=== PATIENT | female | born 1980 | race Caucasian/White ===

== ENCOUNTER 2019-10-03 08:27 | Outpatient (CLI) | payer OTHER, SELFPAY ==
--- NOTE | ~2019-10-03 | XR_ITS ---
EXAMINATION: XR hand LT min 3V, XR hand RT min 3V DATE: 10/03/2019 08:50 INDICATION: Bilateral hand pain. Neuropathy. TECHNIQUE: 1. Posteroanterior, oblique and lateral views of the left hand were obtained. 2. Posteroanterior, oblique and lateral views of the right hand were obtained. COMPARISON: None. FINDINGS: Bone alignment is normal at both hands and wrists. No fracture. Joint spaces are normal throughout. I ndolent appearing lucent lesion with well-defined thin sclerotic margins at the distal pole of the le ft scaphoid. No other cortical erosions. No periosteal reaction. Soft tissues are unremarkable. IMPRESSION: 1. Likely incidental benign indolent appearing lytic lesion at the distal pole of the left scaphoid. Otherwise normal bilateral hand radiographs. Reviewed, dictated and finalized at location A. IMPRESSION: 1. Likely incidental benign indolent appearing lytic lesion at the distal pole of the left scaphoid. Otherwise normal bilateral hand radiographs.
[2019-10-03 10:11] LABS: Hematocrit 36.1 % (37.0-47.0); Immature Reticulocyte Fraction 7.7 % (3.0-15.9); Mean Corpuscular HGB Conc 33.2 g/dl (32-36); Mean Corpuscular Hemoglobin 31.7 pg (26-34); Mean Corpuscular Volume 95.3 fl (80-100); Mean Platelet Volume 10.1 fl (7.4-10.4); Platelet Count Result 297 k/mm3 (150-375); Red Blood Count 3.79 M/mm3 (4.2-5.4); Red Cell Distribution Width 12.6 % (11.5-14.5); Reticulocyte Hemoglobin Conten 36.9 pg (28.2-35.7); Reticulocyte Percent 1.39 % (0.7-4.3); Reticulocytes Absolute 0.05 B/L (32.2-175.7); White Blood Count 17.1 K/mm3 (4.5-10.0)
[2019-10-03 10:23] LABS: Alanine Aminotransferase 13 U/L (4-35); Albumin Level 3.9 g/dL (3.5-5.1); Alkaline Phosphatase 72 U/L (38-126); Aspartate Amino Transferase 21 U/L (14-36); Bilirubin,Total 0.1 mg/dL (0.2-1.3); Blood Urea Nitrogen 7 mg/dL (7-17); Calcium 8.5 mg/dL (8.4-10.2); Carbon Dioxide 27 mmol/L (22-30); Chloride 106 mmol/L (98-107); Estimated Glomerular Filt Rate > 60; Glucose 77 mg/dL (65-105); Lactate Dehydrogenase 401 U/L (313-618); Potassium 3.3 mmol/L (3.4-5.0); Sodium 138 mmol/L (137-145)
[2019-10-03 10:52] LABS: Transferrin 246 mg/dL (206-381)
[2019-10-03 10:56] LABS: Thyroid Stimulating Hormone 0.891 uIU/mL (0.465-4.680); Total Triiodothyronine (T3) 1.08 NG/ML (0.97-1.69)
--- NOTE | 2019-10-03 11:00 | NEURO_ITS ---
Patient Number: [id number] Impression: # Complains of numbness of hands. # Bilateral Carpal Tunnel Syndrome, right more than left. # No ulnar neuropathy. # Needle/EMG exam not requested. Nerve Conduction Studies Anti Sensory Summary Table Stim Site NR Peak (ms) P-T Amp (?V) Site1 Site2 Delta-P (ms) Dist (cm) Juan Pablo (m/s) Left Median Anti Sensory (2-3nd Digit) Wrist 4.0 25.6 Wrist 2-3nd Digit 4.0 14.0 35 Wrist 4.5 18.3 Wrist 2-3nd Digit 4.0 14.0 35 Right Median Anti Sensory (2-3nd Digit) Wrist 5.4 19.1 Wrist 2-3nd Digit 5.4 14.0 26 Wrist 5.5 17.2 Wrist 2-3nd Digit 5.4 14.0 26 Left Radial Anti Sensory (Base 1st Digit) Wrist 1.8 32.9 Wrist Base 1st Digit 1.8 0.0 Right Radial Anti Sensory (Base 1st Digit) Wrist 2.0 25.6 Wrist Base 1st Digit 2.0 0.0 Left Ulnar Anti Sensory (5th Digit) Wrist 2.2 30.2 Wrist 5th Digit 2.2 14.0 64 Right Ulnar Anti Sensory (5th Digit) Wrist 2.1 65.8 Wrist 5th Digit 2.1 14.0 67 Motor Summary Table Stim Site NR Onset (ms) O-P Amp (mV) Site1 Site2 Delta-0 (ms) Dist (cm) Juan Pablo (m/s) Left Median Motor (Abd Poll Brev) Wrist 4.5 1.2 Elbow Wrist 4.3 26.0 60 Elbow 8.8 1.7 Right Median Motor (Abd Poll Brev) Wrist 6.0 1.1 Elbow Wrist 3.8 25.0 66 Elbow 9.8 0.8 Left Ulnar Motor (Abd Dig Minimi) Wrist 3.2 9.4 A Elbow Wrist 4.0 26.0 65 A Elbow 7.2 7.8 Right Ulnar Motor (Abd Dig Minimi) Wrist 2.2 11.5 A Elbow Wrist 4.1 26.0 63 A Elbow 6.3 10.8 F Wave Studies NR F-Lat (ms) L-R F-Lat (ms) Left Median (Mrkrs) (Abd Poll Brev) 28.54 1.23 Right Median (Mrkrs) (Abd Poll Brev) 27.31 1.23 Left Ulnar (Mrkrs) (Abd Dig Min) 24.44 0.00 Right Ulnar (Mrkrs) (Abd Dig Min) 24.44 0.00 MTDD
[2019-10-03 11:06] LABS: Iron 46 ug/dL (37-170)
[2019-10-03 11:29] LABS: Free T4 Free Thyroxine 0.83 ng/mL (0.78-2.19); Vitamin D 25 Hydroxy 17.5 ng/mL
[2019-10-03 11:31] LABS: Folic Acid 8.2 ng/mL (2.76->20)
[2019-10-03 11:36] LABS: Percent Iron Saturation 15 % (20-50)
[2019-10-03 13:33] LABS: Basophils Absolute Auto 0.1 K/mm3 (0.0-0.1); Basophils Percent Auto 0.3 % (0.2-1.2); Eosinophils Absolute Auto 0.2 K/mm3 (0-0.3); Eosinophils Percent Auto 1.2 % (0-4.4); Immature Granulocyte Absolute 0.08 K/mm3 (0.00-0.031); Immature Granulocyte Percent A 0.5 % (0-0.5); Lymphocytes Absolute Auto 3.41 K/mm3 (0.9-3.2); Lymphocytes Percent Auto 19.3 % (18.3-44.2); Monocytes Percent Auto 5.8 % (2.6-8.5); Neutrophils Absolute Auto 12.8 K/mm3 (1.3-6.7); Neutrophils Percent Auto 72.9 % (45.5-73.1)
== END 2019-10-03 08:28 | disposition home or self-care (01) ==
LOC: ANHNEURO 08:33
PROVIDERS: PCP Family Medicine; Visit Provider Nurse Practitioner Family
DX: M79.642 Pain in left hand (principal); M79.641 Pain in right hand; M89.9 Disorder of bone, unspecified; G56.03 Carpal tunnel syndrome, bilateral upper limbs
CPT/HCPCS: 36415; 73130; 80053; 82306; 82607; 82728; 82746; 83540; 83550; 83615; 84439; 84443; 84466; 84480; 85025; 85027; 85046; 95911

== ENCOUNTER 2019-12-23 15:58 | Emergency (ER) | payer OTHER, SELFPAY ==
[2019-12-23] VITALS (8 sets, daily range): BP systolic 98–127; BP diastolic 52–94; PULSE 59–87; RESP 12–22; TEMP 37; O2SAT 96–98
--- NOTE | ~2019-12-23 | CT_ITS ---
EXAMINATION: CT BRAIN W/O DATE: 12/23/2019 17:45 INDICATION: Seizure TECHNIQUE: Computed tomography (CT) of the head was performed without intravenous contrast. The dose- length product was 605.33 mGy-cm. Automated exposure control and iterative reconstruction technique w ere employed. COMPARISON: No prior studies for comparison. FINDINGS: Normal brain parenchymal volume for age. Normal linton-white differentiation. No acute intrac ranial hemorrhage, infarction, mass or mass effect. No ventriculomegaly or midline shift. Midline sagittal images demonstrate a normal corpus callosum, c raniovertebral junction and sella turcica. Basilar cisterns are patent. Paranasal sinuses and mastoids are pneumatized. No depressed skull fractures. IMPRESSION: 1. No acute intracranial abnormality. Reviewed, dictated and finalized at location A.
--- NOTE | 2019-12-23 16:36 | ED.GENADULT ---
HPI - General Adult General Chief complaint: Seizure Stated complaint: seizure Time Seen by Provider: 12/23/19 16:15 Source: patient Mode of arrival: ambulatory Limitations: no limitations History of Present Illness HPI narrative: Patient is a 39-year-old male who presents to emergency department for evaluation of seizure-like activity that occurred just prior to arrival patient presents per EMS patient reportedly had her vehicle breakdown became overheated had what was described as brief seizure-like activity attempted to go to work and upon going to work recurrence of symptoms and presents per EMS patient on arrival in the room in no distress able to answer questions appropriately patient has occasional tremors. Patient notes that she aches all over. Patient has not taken anything for her symptoms. Patient is currently on no seizure medications and is followed by Dr. Zapata. Related Data Home Medications Medication Instructions Recorded Confirmed buspirone mg BID 12/23/19 hydroxyzine HCl 50 PO 12/23/19 ropinirole 0.5 mg HS 12/23/19 12/23/19 sertraline 200 mg PO 12/23/19 trazodone 50 mg DAILY 12/23/19 12/23/19 trazodone 150 mg HS 12/23/19 12/23/19 Allergies Allergy/AdvReac Type Severity Reaction Status Date / Time No Known Allergies Allergy Verified 12/23/19 16:32 Review of Systems Review of Systems: All systems reviewed & are unremarkable except as noted in HPI and below PMFSH Past Medical History Medical History (Updated 12/23/19 @ 21:12 by Jorden Alonso PA-C) Anxiety Depression Seizure Social History Social History (Updated 12/23/19 @ 16:39 by Jorden Alonso PA-C) Smoking status: Current every day smoker Alcohol intake: unknown Substance use: former Substance use type: amphetamines Gender identity (if verbalized by the patient): Female Exam Narrative: Exam Narrative: GENERAL: Well-appearing, well-nourished, and in no acute distress. HEAD: Normocephalic, atraumatic. EYES: PERRLA and EOMI. ENT: Nares clear, no rhinorrhea or epistaxis. Mucous membranes moist. Oropharynx without tonsillar hypertrophy exudate or other lesions. NECK: Supple. No adenopathy or masses. CHEST: Clear to auscultation. No respiratory distress. No wheezes rales or rhonchi HEART: Regular rate and rhythm. No murmur heard. Normal peripheral pulses. ABDOMEN: Soft, nontender, nondistended EXTREMITIES: Normal range of motion. No edema. SKIN: Warm, dry, no rash. NEURO: No focal deficits. Alert and oriented x3. Cranial nerves II through XII grossly intact. Normal speech PSYCH: Normal mood and affect. Course Course Emergency Course: Patient in the room at this time in no distress aware of case findings treatment plan and diagnosis given medications in the emergency department normal mentation resting comfortably no distress patient felt appropriate for outpatient reevaluation with follow-up with neurology Consultations Consultation #1: Spoke with neurology and primary care who will follow the patient in neck with driving restrictions with no further interventions or medications at this time Date: 12/23/19 Time: 21:10 Vital Signs Vital signs: Vital Signs Pulse Rate 68 12/23/19 16:17 Respiratory Rate 17 12/23/19 16:17 Blood Pressure 114/67 12/23/19 16:17 Pulse Oximetry 97 12/23/19 16:17 Temperature 98.6 F 12/23/19 16:18 Pulse Rate 61 12/23/19 17:46 Respiratory Rate 18 12/23/19 17:46 Blood Pressure 100/58 L 12/23/19 17:46 Pulse Oximetry 98 12/23/19 17:46 Medical Decision Making [facility] Narrative Medical decision making narrative: Patient's seizures are self-limited and patient has been without post ictal state there are no focal neurological deficits on exam. Subarachnoid hemorrhage is felt to be unlikey at this time. There is no history of fever, and neck is supple without meningismus, making meningitis unlikely. No traumatic history or signs of trauma on exam. No risk fa
[2019-12-23 16:57] LABS: Basophils Percent Auto 0.3 % (0.2-1.2); Eosinophils Absolute Auto 0.1 K/mm3 (0-0.3); Eosinophils Percent Auto 0.6 % (0-4.4); Hematocrit 36.9 % (37.0-47.0); Hemoglobin 12.5 g/dL (12.0-15.0); Immature Granulocyte Absolute 0.06 K/mm3 (0.00-0.031); Immature Granulocyte Percent A 0.4 % (0-0.5); Lymphocytes Absolute Auto 2.74 K/mm3 (0.9-3.2); Lymphocytes Percent Auto 19.2 % (18.3-44.2); Mean Corpuscular HGB Conc 33.9 g/dl (32-36); Mean Corpuscular Hemoglobin 31.8 pg (26-34); Mean Corpuscular Volume 93.9 fl (80-100); Mean Platelet Volume 10.1 fl (7.4-10.4); Monocytes Absolute Auto 0.8 K/mm3 (0.1-0.6); Monocytes Percent Auto 5.6 % (2.6-8.5); Neutrophils Absolute Auto 10.5 K/mm3 (1.3-6.7); Neutrophils Percent Auto 73.9 % (45.5-73.1); Platelet Count Result 315 k/mm3 (150-375); Red Blood Count 3.93 M/mm3 (4.2-5.4); Red Cell Distribution Width 12.6 % (11.5-14.5); White Blood Count 14.3 K/mm3 (4.5-10.0)
[2019-12-23 17:10] LABS: Alanine Aminotransferase 14 U/L (4-35); Alkaline Phosphatase 70 U/L (38-126); Aspartate Amino Transferase 22 U/L (14-36); Bilirubin,Total < 0.1 mg/dL (0.2-1.3); Blood Urea Nitrogen 9 mg/dL (7-17); Calcium 8.7 mg/dL (8.4-10.2); Carbon Dioxide 22 mmol/L (22-30); Chloride 109 mmol/L (98-107); Estimated CRCL calculation 68 ml/min; Estimated Glomerular Filt Rate > 60; Glucose 95 mg/dL (65-105); Lipase 107 U/L (23-300); Potassium 3.6 mmol/L (3.4-5.0); Sodium 139 mmol/L (137-145)
--- NOTE | 2019-12-23 17:22 | PC.NURSE ---
Call received from [facility] in [place], states pt is having a seizure, report is nonresponsive to verbal stimuli, eyes blinking, and shaking all over . On arrival of this RN note pt is tremorous, A/O x3, is not postictal, is not incontinent. Med given IVP and legs and arms immediately straigten and tremors are gone.
[2019-12-23] MEDS: SODIUM CHLORIDE 0.9% IV 1,000 ML 999 ML IV CONT ×2 (17:48→19:04)
[2019-12-23] MEDS: levETIRAcetam 1000MG/NACL100ML 1,000 MG/100 ML BAG 400 MG IVPB (17:49)
--- NOTE | 2019-12-23 17:50 | PC.NURSE ---
Pt returns from CT, no further uncontrollable muscle movement. Pt lying quietly on stretcher. States is unable to void and is refusing straight cath at this time.
--- NOTE | 2019-12-23 18:55 | PC.NURSE ---
Pt up to bathroom with assist of to void. Per patient's patient did not remember both this RN and himself telling her to save the void. Approx 1.5 cc clear yellow urine caught in cup. Preg test performed. Additional NS initiated. DIDIER Coyle, made aware of continued delay. pt continues to adamantly refuse straight cath. States I'll be able to go again in a little bit, I know I will .
[2019-12-23 19:43] LABS: Add Urine Microscopic? NO; Appearance Urine Clear (Clear); Bilirubin Urine Negative (Negative); Blood Urine Negative (Negative); Color Urine Yellow (Yellow); Glucose Urine UA Negative (Negative); Ketones Urine Negative (Negative); Leukocyte Esterase Ur Negative LEU/UL (Negative); Nitrate Urine Negative (Negative); Protein Urine Negative (Negative); Specific Grav Ur 1.024 (1.001-1.035); Urobilinogen Urine Negative mg/dL (<2.0)
[2019-12-23 19:56] LABS: Amphetamine Screen Urine Negative (Negative); Barbiturate Screen Urine Negative (Negative); Benzodiazepines Screen Urine Negative (Negative); Cannabinoid Screen Urine Positive (Negative); Cocaine Screen Urine Negative (Negative); Methadone Screen Urine Negative (Negative); Opiate Screen Urine Negative (Negative); Phencyclidine Screen Urine Negative (Negative)
== END 2019-12-23 21:20 | disposition home or self-care (01) ==
PROVIDERS: Emergency Medicine Emergency Medical Services; Emergency Provider Emergency Medicine; PCP Family Medicine
DX: R56.9 Unspecified convulsions (principal); F41.9 Anxiety disorder, unspecified; F32.9 Major depressive disorder, single episode, unspecified
CPT/HCPCS: 36415; 70450; 80053; 80307; 81003; 81025; 83690; 85025; 96361; 96365; 96375; 99284; J1953; J2060; J7030

== ENCOUNTER 2019-12-24 22:06 | Emergency (ER) | payer OTHER, SELFPAY ==
[2019-12-24 22:07] VITALS: BP 153/86; PULSE 86; RESP 18; TEMP 36.9; O2SAT 99
--- NOTE | 2019-12-24 22:32 | PC.NURSE ---
patients states in room we've been at this hospital 3 fucking time in the past month and they just keep doping her up with fluids and sending her home, they tell us every time that nothing is wrong. somebody better fucking find something wrong. edp present for this.
--- NOTE | 2019-12-24 22:35 | ED.HA ---
HPI - Headache General Chief Complaint: Headache Stated Complaint: migraine, N/V Time Seen by Provider: 12/24/19 22:25 History of Present Illness HPI Narrative: Patient presents to the ED with her . She is crying in pain from her headache. is yelling at staff that no one is taking care of her. She has been here numerous times for headache and body pain, and shaking. They were told that they could find nothing wrong on her tests, and she was sent to the neurology. Because of COVID her neurology appointment was postponed for times. She was seen here yesterday and discharged. She is continued to vomit and continued to have headaches since then. She says her whole body hurts 12 out of 10. And the headache is 8 out of 10. She has not had her psychiatric medications for 3 days, because they do not have a car. Psychiatric medications have been prescribed by the nurse practitioner of her PCP. She says her vision is different because she cannot make her eyes do what she wants them to do. She says she has severe leg pain because it is a tingling electric shock through her whole body. Surgical history of cervical fusion. She smokes cigarettes. Does not drink alcohol, and does smoke marijuana. MD elicited complaint: headache and migraine Location: frontal Related Data Home Medications Medication Instructions Recorded Confirmed buspirone mg BID 12/23/19 hydroxyzine HCl 50 PO 12/23/19 ropinirole 0.5 mg HS 12/23/19 12/23/19 sertraline 200 mg PO 12/23/19 trazodone 50 mg DAILY 12/23/19 12/23/19 trazodone 150 mg HS 12/23/19 12/23/19 Allergies Allergy/AdvReac Type Severity Reaction Status Date / Time No Known Allergies Allergy Verified 12/23/19 16:32 Review of Systems Review of Systems: Narrative: CONSTITUTIONAL: Denies fever, but has had chills, and sweats. EYES: Denies visual changes, redness, or discharge. She says she cannot focus her eyes. ENT: Denies rhinorrhea, congestion, sore throat, or otalgia. CARDIOVASCULAR: Denies chest pain, palpitations, or edema. RESPIRATORY: Denies cough or dyspnea. GASTROINTESTINAL: Denies abdominal pain, nausea, vomiting, or diarrhea. GENITOURINARY: Denies dysuria or hematuria. SKIN: Denies rash or itching. MUSCULOSKELETAL: She has back pain, joint pain, and myalgia. NEUROLOGIC: She has headache, and numbness, PSYCHIATRIC: Severe anxiety. [facility] Past Medical History Medical History (Updated 12/24/19 @ 22:40 by Hyacinth Grove MD) Anxiety Depression Seizure Surgical History Surgical History (Updated 12/24/19 @ 22:40 by Hyacinth Grove MD) History of cervical spinal arthrodesis Social History Social History (Updated 12/24/19 @ 22:40 by Hyacinth Grove MD) Smoking status: Current every day smoker Alcohol intake: unknown Substance use: current Substance use type: marijuana and amphetamines Gender identity (if verbalized by the patient): Female Exam Narrative: Exam Narrative: GENERAL: Thin, crying HEAD: Normocephalic, atraumatic. EYES: PERRLA and EOMI. ENT: Nares clear, no rhinorrhea or epistaxis. Mucous membranes dry. NECK: Supple. CHEST: Clear to auscultation. No respiratory distress. HEART: Regular rate and rhythm. No murmur heard. Normal peripheral pulses. ABDOMEN: Soft, nontender, nondistended, normal active bowel sounds. EXTREMITIES: Normal range of motion. No edema. SKIN: Warm, dry, no rash. NEURO: No focal deficits. Alert and oriented x3. PSYCH: Histrionic. Course Reevaluation(s) Reevaluation #1: [id number] with the patient and her , she is feeling much better and on her second liter of IV fluids. The headache is gone and the nausea is gone. I told her I wanted the IV fluids to run until she was able to make urine. The reason she is not on seizure medication is that happened to infrequently. Date: 12/25/19 Time: 00:21 Vital Signs Vital signs: Vital Signs Temperature 98.4 F 12/24/19 22:07 Pulse Rate 86 12/24/19 22:
[2019-12-24] MEDS: SODIUM CHLORIDE 0.9% IV 1,000 ML 999 ML IV CONT ×2 (22:40→23:59)
[2019-12-24] MEDS: diphenhydrAMINE HCl INJ 50 MG/ML VIAL IV PUSH (22:40)
[2019-12-24] MEDS: METOCLOPRAMIDE HCL INJ 10 MG/2 ML VIAL IV PUSH (22:40)
[2019-12-24 22:44] LABS: Basophils Percent Auto 0.2 % (0.2-1.2); Eosinophils Absolute Auto 0.1 K/mm3 (0-0.3); Eosinophils Percent Auto 0.7 % (0-4.4); Hematocrit 39.2 % (37.0-47.0); Hemoglobin 13.3 g/dL (12.0-15.0); Immature Granulocyte Absolute 0.05 K/mm3 (0.00-0.031); Immature Granulocyte Percent A 0.3 % (0-0.5); Lymphocytes Absolute Auto 4.97 K/mm3 (0.9-3.2); Lymphocytes Percent Auto 31.7 % (18.3-44.2); Mean Corpuscular HGB Conc 33.9 g/dl (32-36); Mean Corpuscular Hemoglobin 31.7 pg (26-34); Mean Corpuscular Volume 93.6 fl (80-100); Mean Platelet Volume 10.3 fl (7.4-10.4); Monocytes Absolute Auto 0.9 K/mm3 (0.1-0.6); Monocytes Percent Auto 5.8 % (2.6-8.5); Neutrophils Absolute Auto 9.6 K/mm3 (1.3-6.7); Neutrophils Percent Auto 61.3 % (45.5-73.1); Platelet Count Result 330 k/mm3 (150-375); Red Blood Count 4.19 M/mm3 (4.2-5.4); Red Cell Distribution Width 12.5 % (11.5-14.5); White Blood Count 15.7 K/mm3 (4.5-10.0)
[2019-12-24 22:55] LABS: Ethanol < 10 mg/dL (<10)
[2019-12-24 22:58] LABS: Alanine Aminotransferase 18 U/L (4-35); Albumin Level 4.2 g/dL (3.5-5.1); Alkaline Phosphatase 55 U/L (38-126); Aspartate Amino Transferase 27 U/L (14-36); Bilirubin,Total 0.5 mg/dL (0.2-1.3); Blood Urea Nitrogen 8 mg/dL (7-17); CRP < 0.5 mg/dL (<1.0); Calcium 9.3 mg/dL (8.4-10.2); Carbon Dioxide 23 mmol/L (22-30); Chloride 107 mmol/L (98-107); Estimated Glomerular Filt Rate > 60; Glucose 98 mg/dL (65-105); Potassium 3.9 mmol/L (3.4-5.0); Sodium 139 mmol/L (137-145)
[2019-12-24 23:03] VITALS: BP 113/63; PULSE 53; RESP 18; O2SAT 100
[2019-12-24 23:08] LABS: Erythrocyte Sedimentation Rate 13 mm/hr (0-20)
[2019-12-24 23:34] VITALS: BP 107/59; PULSE 59; RESP 19; O2SAT 100
[2019-12-25 00:49] VITALS: BP 108/67; PULSE 56; RESP 18; O2SAT 100
[2019-12-25 01:00] LABS: Amphetamine Screen Urine Negative (Negative); Barbiturate Screen Urine Negative (Negative); Benzodiazepines Screen Urine Negative (Negative); Cannabinoid Screen Urine Positive (Negative); Cocaine Screen Urine Negative (Negative); Methadone Screen Urine Negative (Negative); Opiate Screen Urine Negative (Negative); Phencyclidine Screen Urine Negative (Negative)
[2019-12-25 01:20] VITALS: BP 112/64; PULSE 61; RESP 19; TEMP 36.8; O2SAT 100
== END 2019-12-25 01:21 | disposition home or self-care (01) ==
PROVIDERS: Emergency Provider Emergency Medicine; PCP Family Medicine
DX: R51 Headache (principal); F41.9 Anxiety disorder, unspecified; F32.9 Major depressive disorder, single episode, unspecified; Z98.1 Arthrodesis status; F17.200 Nicotine dependence, unspecified, uncomplicated
CPT/HCPCS: 36415; 80053; 80307; 85025; 85652; 86140; 96361; 96374; 96375; 99284; J1200; J2765; J7030

== ENCOUNTER 2020-05-01 17:12 | Emergency (ER) | payer OTHER, SELFPAY ==
[2020-05-01 17:16] VITALS: BP 128/62; PULSE 64; RESP 16; TEMP 36.3; O2SAT 95
[2020-05-01] MEDS: ONDANSETRON INJ 4 MG/2 ML VIAL IV PUSH (18:47)
[2020-05-01] MEDS: SODIUM CHLORIDE 0.9% IV 1,000 ML 999 ML IV CONT (18:47)
[2020-05-01] MEDS: FAMOTIDINE 20 MG/2 ML VIAL IV PUSH (18:47)
[2020-05-01 18:52] LABS: Basophils Absolute Auto 0.1 K/mm3 (0.0-0.1); Basophils Percent Auto 0.3 % (0.2-1.2); Eosinophils Absolute Auto 0.3 K/mm3 (0-0.3); Eosinophils Percent Auto 1.7 % (0-4.4); Hematocrit 43.5 % (37.0-47.0); Hemoglobin 15.4 g/dL (12.0-15.0); Immature Granulocyte Absolute 0.06 K/mm3 (0.00-0.031); Immature Granulocyte Percent A 0.4 % (0-0.5); Lymphocytes Absolute Auto 4.09 K/mm3 (0.9-3.2); Lymphocytes Percent Auto 27.8 % (18.3-44.2); Mean Corpuscular HGB Conc 35.4 g/dl (32-36); Mean Corpuscular Hemoglobin 32.3 pg (26-34); Mean Corpuscular Volume 91.2 fl (80-100); Mean Platelet Volume 10.1 fl (7.4-10.4); Monocytes Percent Auto 6.9 % (2.6-8.5); Neutrophils Absolute Auto 9.3 K/mm3 (1.3-6.7); Neutrophils Percent Auto 62.9 % (45.5-73.1); Platelet Count Result 446 k/mm3 (150-375); Red Blood Count 4.77 M/mm3 (4.2-5.4); Red Cell Distribution Width 12.5 % (11.5-14.5); White Blood Count 14.7 K/mm3 (4.5-10.0)
[2020-05-01] MEDS: LORazepam INJ (*CRX) 2 MG/ML VIAL 1 MG IV PUSH (18:53)
[2020-05-01 19:03] LABS: Alanine Aminotransferase 26 U/L (4-35); Albumin Level 4.9 g/dL (3.5-5.1); Alkaline Phosphatase 77 U/L (38-126); Anion Gap 16 mmol/L (8-16); Aspartate Amino Transferase 32 U/L (14-36); Bilirubin,Total 0.7 mg/dL (0.2-1.3); Blood Urea Nitrogen 21 mg/dL (7-17); Calcium 9.9 mg/dL (8.4-10.2); Carbon Dioxide 22 mmol/L (22-30); Chloride 104 mmol/L (98-107); Estimated CRCL calculation 64 ml/min; Estimated Glomerular Filt Rate > 60; Glucose 88 mg/dL (65-105); Lipase 103 U/L (23-300); Potassium 3.2 mmol/L (3.4-5.0); Sodium 142 mmol/L (137-145)
[2020-05-01 20:20] LABS: Add Urine Microscopic? YES; Appearance Urine Cloudy (Clear); Bacteria Urine Trace /hpf; Bilirubin Urine Negative (Negative); Blood Urine 2+ (Negative); Color Urine Yellow (Yellow); Glucose Urine UA Negative (Negative); Ketones Urine 1+ mg/dL (Negative); Leukocyte Esterase Ur Negative LEU/UL (Negative); Mucus Urine Heavy /lpf; Nitrate Urine Negative (Negative); Protein Urine 2+ mg/dL (Negative); Squamous Epithelial Cell Urine Many /hpf (Few)
[2020-05-01 20:24] LABS: Barbiturate Screen Urine Negative (Negative); Benzodiazepines Screen Urine Positive (Negative)
[2020-05-01 20:25] LABS: Cannabinoid Screen Urine Positive (Negative); Cocaine Screen Urine Negative (Negative); Methadone Screen Urine Negative (Negative); Opiate Screen Urine Negative (Negative); Phencyclidine Screen Urine Negative (Negative)
--- NOTE | 2020-05-01 20:33 | ED.GENADULT ---
HPI - General Adult General Chief complaint: Unspecified Stated complaint: N/V/D SEIZURES DEHYDRATED Time Seen by Provider: 05/01/20 17:55 Source: patient and old records reviewed Mode of arrival: ambulatory Limitations: no limitations History of Present Illness HPI narrative: Patient is a 39-year-old female who presents to emergency department with nausea and vomiting over the weekend which has improved. Patient over the weekend notes that she used amphetamines and benzos and developed nausea and vomiting which lasted 1 day and resolved patient presents noting concerned that she felt like she was still nauseous and under the influence patient on arrival denies diarrhea URI symptoms or other complaints notes she does have a longstanding history of drug abuse Related Data Home Medications Medication Instructions Recorded Confirmed buspirone mg BID 12/23/19 hydroxyzine HCl 50 PO 12/23/19 ropinirole 0.5 mg HS 12/23/19 12/23/19 sertraline 200 mg PO 12/23/19 trazodone 50 mg DAILY 12/23/19 12/23/19 trazodone 150 mg HS 12/23/19 12/23/19 Allergies Allergy/AdvReac Type Severity Reaction Status Date / Time No Known Allergies Allergy Verified 05/01/20 18:08 Review of Systems Review of Systems: All systems reviewed & are unremarkable except as noted in HPI and below PMFSH Past Medical History Medical History Anxiety Depression Seizure Surgical History Surgical History History of cervical spinal arthrodesis Social History Social History Smoking status: Current every day smoker Alcohol intake: unknown Substance use: current Substance use type: marijuana and amphetamines Gender identity (if verbalized by the patient): Female Exam Narrative: Exam Narrative: GENERAL: Well-appearing, well-nourished, and in no acute distress. HEAD: Normocephalic, atraumatic. EYES: PERRLA and EOMI. ENT: Nares clear, no rhinorrhea or epistaxis. Mucous membranes moist. CHEST: Clear to auscultation. No respiratory distress. No wheezes rales or rhonchi HEART: Regular rate and rhythm. No murmur heard. Normal peripheral pulses. ABDOMEN: Soft, nontender, nondistended EXTREMITIES: Normal range of motion. No edema. SKIN: Warm, dry, no rash. NEURO: No focal deficits. Alert and oriented x3. PSYCH: Normal mood and affect. Course Course Emergency Course: Patient in the room aware of case findings treatment plan diagnosis hydrated given medication has had improvement with symptoms feels comfortable to be discharged home and will follow with primary care Vital Signs Vital signs: Vital Signs Temperature 97.3 F L 05/01/20 17:16 Pulse Rate 64 05/01/20 17:16 Respiratory Rate 16 05/01/20 17:16 Blood Pressure 128/62 05/01/20 17:16 Pulse Oximetry 95 05/01/20 17:16 Temperature 97.3 F L 05/01/20 17:16 Pulse Rate 64 05/01/20 17:16 Respiratory Rate 16 05/01/20 17:16 Blood Pressure 128/62 05/01/20 17:16 Pulse Oximetry 95 05/01/20 17:16 Medical Decision Making MDM Narrative Medical decision making narrative: Patient with nausea and vomiting resolved hydrated felt appropriate for outpatient reevaluation agreeing to follow with primary care Vital Signs Vital Signs: Vital Signs Temperature 97.3 F L 05/01/20 17:16 Pulse Rate 64 05/01/20 17:16 Respiratory Rate 16 05/01/20 17:16 Blood Pressure 128/62 05/01/20 17:16 Pulse Oximetry 95 05/01/20 17:16 Temperature 97.3 F L 05/01/20 17:16 Pulse Rate 64 05/01/20 17:16 Respiratory Rate 16 05/01/20 17:16 Blood Pressure 128/62 05/01/20 17:16 Pulse Oximetry 95 05/01/20 17:16 Lab Data Result diagrams: 05/01/20 18:46 05/01/20 18:46 Labs: Lab Results 05/01/20 05/01/20 05/01/20 Range/Units 18:46 18:46 20:01 WBC 14.7 H (4.
[2020-05-01 20:41] LABS: Amphetamine Screen Urine Positive (Negative)
[2020-05-01 21:09] VITALS: BP 130/74; PULSE 88; RESP 14; O2SAT 98
== END 2020-05-01 21:10 | disposition home or self-care (01) ==
PROVIDERS: Emergency Medicine Emergency Medical Services; Emergency Provider Emergency Medicine; PCP Family Medicine
DX: R10.9 Unspecified abdominal pain (principal); F41.9 Anxiety disorder, unspecified; F32.9 Major depressive disorder, single episode, unspecified; G40.909 Epilepsy, unspecified, not intractable, without status epilepticus; F17.210 Nicotine dependence, cigarettes, uncomplicated
CPT/HCPCS: 36415; 80053; 80307; 81001; 81025; 83690; 85025; 96361; 96374; 96375; 99284; J2060; J2405; J7030

== ENCOUNTER 2020-06-21 15:37 | Outpatient (CLI) | payer OTHER, SELFPAY ==
--- NOTE | ~2020-06-21 | MR_ITS ---
EXAMINATION: MR brain/brain stem wo/w con EXAM DATE: 06/21/2020 17:02 INDICATION: Conversion disorder, seizures or convulsions. TECHNIQUE: Magnetic resonance imaging (MRI) of the brain/brain stem obtained without contrast. Sagit mendez T1, axial diffusion, gradient echo (T2*), T1, T2, FLAIR sequences obtained. Seizure protocol was utilized including high-resolution coronal images through the hippocampi. Patient was then injected with 10 cc intravenous Multihance contrast. Axial and coronal postcontrast T1 weighted sequences obt ained. Correlation is made to head CT 12/23/2019. FINDINGS: The hippocampi are symmetric and are without signal abnormality identified. There are no g ray matter heterotopias identified or evidence of cortical dysplasia. There are approximately 8 punctate periventricular and subcortical T2/FLAIR hyperintensities, a non-s pecific finding with differential diagnosis including premature chronic small vessel ischemic disease (especially if the patient has cardiovascular risk factors), migraine headaches, demyelinating disea se such as multiple sclerosis or acute disseminated encephalomyelitis (ADEM), vasculopathy, lyme's di sease or reactive astrocytosis (gliosis) secondary to nonspecific etiology. None of these signal abno rmalities in the corpus callosum or posterior fossa. There are no areas of restricted diffusion to suggest acute infarction. There is no acute hemorrhage seen on the T2*, a hemosiderin sensitive sequence. No intraparenchymal brain mass. The ventricles a re normal in size. There are no extra-axial collections. Flow voids are seen in the cerebral arteri es on the T2-weighted sequences consistent with their expected patency. The orbits are unremarkable. Soft tissue is unremarkable. IMPRESSION: Small punctate white matter hyperintensities could be microangiopathy but some less likel y differential considerations above. Reviewed, dictated and finalized at location A. HANDLER IMPRESSION: Small punctate white matter hyperintensities could be microangiopat hy but some less likely differential considerations above.
[2020-06-21 16:24] LABS: Estimated Glomerular Filt Rate > 60
[2020-06-21 17:30] LABS: Anion Gap 6 mmol/L (8-16); Blood Urea Nitrogen 8 mg/dL (7-17); Calcium 8.7 mg/dL (8.4-10.2); Carbon Dioxide 27 mmol/L (22-30); Chloride 105 mmol/L (98-107); Estimated Glomerular Filt Rate > 60; Glucose 84 mg/dL (65-105); Potassium 3.3 mmol/L (3.4-5.0); Sodium 138 mmol/L (137-145)
== END 2020-06-21 15:38 | disposition home or self-care (01) ==
PROVIDERS: PCP Family Medicine; Visit Provider Nurse Practitioner Family
DX: E87.6 Hypokalemia (principal); F44.5 Conversion disorder with seizures or convulsions
CPT/HCPCS: 70553; 80048; A9577

== ENCOUNTER 2020-07-02 16:49 | Emergency (ER) | payer OTHER, SELFPAY ==
--- NOTE | ~2020-07-02 | CT_ITS ---
EXAMINATION: CT soft tissue neck wo con DATE: 07/02/2020 19:57 INDICATION: Neck pain TECHNIQUE: Computed tomography (CT) of the neck was performed without intravenous contrast. The dose- length product (DLP) was 360.79 mGy-cm. Automated exposure control and iterative reconstruction techn ique were employed. COMPARISON: None FINDINGS: The neck soft tissues are unremarkable. There are changes of anterior fusion procedure at C 5-6 with interbody device placement. There is no fracture, dislocation, or subluxation. The odontoid is intact. The prevertebral soft tissues are normal. There are multiple teeth with dental caries in v arious states of erosion. Mild to moderate emphysema is noted in the visualized lung apices. IMPRESSION: 1. Unremarkable neck soft tissues. 2. Changes of anterior fusion procedure in the cervical spine without acute osseous abnormality. Reviewed, dictated and finalized at location A. EM CONSULTANT IMPRESSION: 1. Unremarkable neck soft tissues. 2. Changes of anterior fusion procedure in the cervical spine without acute oss eous abnormality.
[2020-07-02 16:57] VITALS: BP 123/59; PULSE 72; RESP 20; TEMP 36.8; O2SAT 98
--- NOTE | 2020-07-02 17:31 | ED.BACK ---
HPI - Back Pain/Injury General Chief Complaint: Back Pain/Injury Stated Complaint: back, neck pain Time Seen by Provider: 07/02/20 17:03 Source: patient Mode of arrival: ambulatory Limitations: no limitations History of Present Illness HPI Narrative: Patient is a 39-year-old female who presents complaining of neck pain shoulder pain and lower back pain x 3 weeks increasing over the past week, she denies injury. She reports intermittent weakness in left arm, denies weakness at this time. She reports seeing PCP for same, PCP sent patient for further evaluation as patient is reporting loss of bladder control x3 over the past week. Patient reports a history of previous neck surgery in 2013. She denies new injury, she denies all other complaints. MD elicited complaint: back pain Related Data Home Medications Medication Instructions Recorded Confirmed buspirone mg BID 12/23/19 hydroxyzine HCl 50 PO 12/23/19 ropinirole 0.5 mg HS 12/23/19 12/23/19 sertraline 200 mg PO 12/23/19 trazodone 50 mg DAILY 12/23/19 12/23/19 trazodone 150 mg HS 12/23/19 12/23/19 albuterol sulfate 07/02/20 albuterol sulfate INHALATION 07/02/20 Allergies Allergy/AdvReac Type Severity Reaction Status Date / Time No Known Allergies Allergy Verified 07/02/20 17:53 Review of Systems Review of Systems: Narrative: CONSTITUTIONAL: Denies fever, chills, or sweats. EYES: Denies visual changes, redness, or discharge. ENT: Denies rhinorrhea, congestion, sore throat, or otalgia. CARDIOVASCULAR: Denies chest pain, palpitations, or edema. RESPIRATORY: Denies cough or dyspnea. GASTROINTESTINAL: Denies abdominal pain, nausea, vomiting, or diarrhea. GENITOURINARY: Intermittent urinary incontinence x 3 over the past week. SKIN: Denies rash or itching. MUSCULOSKELETAL:Reports neck, bilateral shoulder and back pain x 3 weeks. NEUROLOGIC: Denies headache, numbness, dizziness, or weakness. PSYCHIATRIC: Denies anxiety or depression. [facility] Past Medical History Medical History Anxiety Depression Seizure Surgical History Surgical History History of cervical spinal arthrodesis Social History Social History Smoking status: Current every day smoker Alcohol intake: unknown Substance use: current Substance use type: marijuana and amphetamines Gender identity (if verbalized by the patient): Female Comments At the time of signature, I have reviewed and agree with nursing past medical, surgical, social, and family history unless otherwise noted. Please see nursing chart for further information. There is no relevant family history pertinent to the presenting complaint. Exam Narrative: Exam Narrative: GENERAL: Well-appearing, well-nourished, and in no acute distress. HEAD: Normocephalic, atraumatic. EYES: No redness or drainage. ENT: Mucous membranes pink and moist. NECK: AROM. Supple. No lymphadenopathy. Posterior tenderness with palpation CHEST: No respiratory distress. Clear to auscultation. HEART: Regular rate and rhythm. MUSCULOSKELETAL: No bony tenderness. EXTREMITIES: Normal range of motion. No edema. SKIN: Warm, dry, no rash. NEURO: No focal deficits. Alert and oriented x3. Gait steady. PSYCH: Normal affect. No signs of depression or anxiety. Course Vital Signs Vital signs: Vital Signs Temperature 36.8 C 07/02/20 16:57 Pulse Rate 72 07/02/20 16:57 Respiratory Rate 20 07/02/20 16:57 Blood Pressure 123/59 L 07/02/20 16:57 Pulse Oximetry 98 07/02/20 16:57 Temperature 37.0 C 07/02/20 20:11 Pulse Rate 68 07/02/20 21:20 Respiratory Rate 16 07/02/20 21:20 Blood Pressure 106/60 07/02/20 21:20 Pulse Oximetry 98 07/02/20 21:20 Reviewed MDM - Back Pain/Injury MDM Narrative Medical decision making narrative: Patient's CT neck is neg
[2020-07-02 18:09] LABS: Add Urine Microscopic? NO; Appearance Urine Clear (Clear); Bilirubin Urine Negative (Negative); Blood Urine Negative (Negative); Color Urine Colorless (Yellow); Glucose Urine UA Negative (Negative); Ketones Urine Negative (Negative); Leukocyte Esterase Ur Negative LEU/UL (Negative); Nitrate Urine Negative (Negative); Protein Urine Negative (Negative); Specific Grav Ur 1.005 (1.001-1.035); Urobilinogen Urine Negative mg/dL (<2.0)
--- NOTE | 2020-07-02 18:11 | PC.NURSE ---
Addendum entered by Sue Abdul RN 07/02/20 18:49: Error in note: pt states she took PO Morphine yesterday. Original Note: Pt states she took 15mg PO Morphine today for back pain.
[2020-07-02] MEDS: CYCLOBENZAPRINE HCL 10 MG TABLET PO (18:43)
[2020-07-02] MEDS: KETOROLAC (*BKC) 60 MG/2 ML VIAL IM (18:44)
--- NOTE | 2020-07-02 18:44 | PC.NURSE ---
patient medicated as ordered.
[2020-07-02 20:11] VITALS: BP 98/47; PULSE 59; RESP 16; TEMP 37; O2SAT 98
[2020-07-02] MEDS: HYDROcodone/acetaminophen (*CRX) 5-325 MG TABLET 1 TAB PO (20:50)
[2020-07-02 21:20] VITALS: BP 106/60; PULSE 68; RESP 16; O2SAT 98
== END 2020-07-02 21:23 | disposition home or self-care (01) ==
PROVIDERS: Emergency Provider Nurse Practitioner; PCP Family Medicine
DX: M54.16 Radiculopathy, lumbar region (principal); M54.12 Radiculopathy, cervical region; F41.9 Anxiety disorder, unspecified; F32.9 Major depressive disorder, single episode, unspecified; F17.200 Nicotine dependence, unspecified, uncomplicated
CPT/HCPCS: 70490; 81003; 96372; 99284; A9270; J1885

== ENCOUNTER 2020-10-14 18:59 | Emergency (ER) | payer OTHER, SELFPAY ==
--- NOTE | ~2020-10-14 | XR_ITS ---
EXAMINATION: XR shoulder RT min 2V DATE: 10/14/2020 22:12 INDICATION: Right shoulder pain. TECHNIQUE: 4 views of right shoulder were obtained. COMPARISON: None. FINDINGS: Bone alignment is normal. No fracture. There is moderate acromioclavicular joint osteoarthr itis. Glenohumeral joint is normal. There are changes of anterior fusion procedure in cervical spine. IMPRESSION: 1. Moderate acromioclavicular joint osteoarthritis. Reviewed, dictated and finalized at location A.
[2020-10-14 19:57] VITALS: BP 131/63; PULSE 79; RESP 16; TEMP 36.7; O2SAT 96
[2020-10-14 21:32] VITALS: BP 134/78; PULSE 81; RESP 18; O2SAT 98
--- NOTE | 2020-10-14 22:38 | ED.UPPEXIN ---
HPI - Extremity Injury (Upper) General Chief Complaint: Extremity Injury, Upper Stated Complaint: RIGHT SHOULDER PAIN Time Seen by Provider: 10/14/20 22:13 Source: patient and RN notes reviewed Mode of arrival: ambulatory Limitations: no limitations History of Present Illness HPI narrative: Patient is 40 years old white female came to the emergency room because of pain at the right shoulder started 5 days ago. 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 Pain increased with certain movement, better with certain position. Patient denies any fever, chills, nausea, vomiting, chest pain or shortness of breath. Related Data Home Medications Medication Instructions Recorded Confirmed buspirone mg BID 12/23/19 hydroxyzine HCl 50 PO 12/23/19 ropinirole 0.5 mg HS 12/23/19 12/23/19 sertraline 200 mg PO 12/23/19 trazodone 50 mg DAILY 12/23/19 12/23/19 trazodone 150 mg HS 12/23/19 12/23/19 albuterol sulfate 07/02/20 albuterol sulfate INHALATION 07/02/20 Allergies Allergy/AdvReac Type Severity Reaction Status Date / Time No Known Allergies Allergy Verified 10/14/20 21:34 Review of Systems Review of Systems: Narrative: CONSTITUTIONAL: Denies fever, chills, or sweats. EYES: Denies visual changes, redness, or discharge. ENT: Denies rhinorrhea, congestion, sore throat, or otalgia. CARDIOVASCULAR: Denies chest pain, palpitations, or edema. RESPIRATORY: Denies cough or dyspnea. GASTROINTESTINAL: Denies abdominal pain, nausea, vomiting, or diarrhea. GENITOURINARY: Denies dysuria or hematuria. SKIN: Denies rash or itching. MUSCULOSKELETAL: Denies back pain, joint pain, or myalgia. NEUROLOGIC: Denies headache, numbness, or weakness. PSYCHIATRIC: Denies anxiety or depression. [facility] Past Medical History Medical History Anxiety Depression Seizure Surgical History Surgical History History of cervical spinal arthrodesis Social History Social History Smoking status: Current every day smoker Alcohol intake: unknown Substance use: current Substance use type: marijuana and amphetamines Gender identity (if verbalized by the patient): Female Exam Narrative: Exam Narrative: General appearance: Well-developed, well-nourished Skin: Normal color Head: Normocephalic, nontraumatic Neck: Supple, nontender Chest and respiratory: Airway patent, no respiratory distress, no accessory muscle use Heart: Regular rate/rhythm Musculoskeletal: Limited range of motion of the right upper extremity, patient is able to abduct the right arm slightly up to 180 degree. Neurologic: Alert and oriented ?3, [employer] is normal as tested, no gross motor deficit Course Course Emergency Course: Stable Vital Signs Vital signs: Vital Signs Temperature 36.7 C 10/14/20 19:57 Pulse Rate 79 10/14/20 19:57 Respiratory Rate 16 10/14/20 19:57 Blood Pressure 131/63 10/14/20 19:57 Pulse Oximetry 96 10/14/20 19:57 Temperature 36.7 C 10/14/20 19:57 Pulse Rate 81 10/14/20 21:32 Respiratory Rate 18 10/14/20 21:32 Blood Pressure 134/78 10/14/20 21:32 Pulse Oximetry 98 10/14/20 21:32 MDM - Extremity Injury (Upper) MDM Narrative Medical decision making narrative: Rotator cuff strain/sprain is my concern. X-ray right shoulder ordered, ibuprofen 800 mg orally ordered. Further plan to follow Differential Diagnosis Differential diagnosis: Likely other (Rotator cuff syndrome, tendinitis, shoulder strain/sprain) Lab Data Labs: UCG Bedside Result N
[2020-10-14] MEDS: IBUPROFEN 400 MG TABLET 800 MG PO (22:45)
[2020-10-14 23:52] VITALS: BP 137/80; PULSE 66; RESP 14; O2SAT 98
== END 2020-10-14 23:52 | disposition home or self-care (01) ==
PROVIDERS: Emergency Provider Emergency Medicine; PCP Family Medicine
DX: S43.401A Unspecified sprain of right shoulder joint, initial encounter (principal); F41.9 Anxiety disorder, unspecified; F32.9 Major depressive disorder, single episode, unspecified; Z98.1 Arthrodesis status; F17.200 Nicotine dependence, unspecified, uncomplicated; X50.0XXA Overexertion from strenuous movement or load, initial encounter
CPT/HCPCS: 73030; 81025; 99283; A9270

== ENCOUNTER 2021-01-29 18:14 | Emergency (ER) | payer OTHER, SELFPAY ==
--- NOTE | ~2021-01-29 | XR_ITS ---
XR chest 1V portable DATE: 01/29/2021 19:49 INDICATION: Cough, shortness of breath, sore throat TECHNIQUE: Portable upright AP chest on 01/29/2021 at 1943 hours COMPARISON: 03/17/2019 2 view chest FINDINGS: Normal heart size. No hilar or mediastinal enlargement. No pulmonary infiltrate or consolid ation, pleural effusion or pulmonary vascular congestion or pneumothorax. IMPRESSION: No active cardiopulmonary disease Reviewed, dictated and finalized at location A.
[2021-01-29 18:27] VITALS: BP 135/78; PULSE 106; RESP 20; TEMP 36.9; O2SAT 100
--- NOTE | 2021-01-29 19:20 | PC.NURSE ---
Report received and care of pt assumed at this time.
[2021-01-29 19:24] VITALS: BP 116/73; PULSE 72; RESP 18; TEMP 37.6; O2SAT 100
--- NOTE | 2021-01-29 19:24 | ED.GENADULT ---
HPI - General Adult General Chief complaint: Upper Respiratory Infection Stated complaint: covid test, cough, vomit Time Seen by Provider: 01/29/21 19:15 Source: patient Mode of arrival: ambulatory Limitations: no limitations History of Present Illness HPI narrative: Patient is here for Covid swab evaluation of upper respiratory symptoms. States that she has been caring for her at home who has been Covid positive for about a week. She started having cough and sore throat several days ago, now has fatigue with exertion and loss of taste. Has asthma as well but has not been wheezing. Her temperature here today is her T-max Related Data Home Medications Medication Instructions Recorded Confirmed buspirone mg BID 12/23/19 hydroxyzine HCl 50 PO 12/23/19 ropinirole 0.5 mg HS 12/23/19 12/23/19 sertraline 200 mg PO 12/23/19 trazodone 150 mg HS 12/23/19 12/23/19 albuterol sulfate 07/02/20 albuterol sulfate INHALATION 07/02/20 Allergies Allergy/AdvReac Type Severity Reaction Status Date / Time No Known Allergies Allergy Verified 01/29/21 19:16 Review of Systems Review of Systems: All systems reviewed & are unremarkable except as noted in HPI and below [facility] Past Medical History Medical History (Updated 01/29/21 @ 20:38 by Catherine Hernández PA-C) Anxiety Depression Seizure Surgical History Surgical History History of cervical spinal arthrodesis Social History Social History Smoking status: Current every day smoker Alcohol intake: unknown Substance use: current Substance use type: marijuana and amphetamines Gender identity (if verbalized by the patient): Female Exam Const: General: healthy appearing, no acute distress and alert Orientation/consciousness: patient oriented x3 HENMT: Mouth: Yes oropharynx normal and Yes moist mucous membranes Teeth and gingiva: fair dentition Throat: posterior oropharynx normal Eyes: Pupils: Equal, round and reactive pupils present Neck: Neck: lymphadenopathy (left submandibular) Resp: Effort & Inspection: normal respiratory effort Auscultation: clear to auscultation bilaterally Cardio: Rate: regular rate Rhythm: regular rhythm Skin: General skin exam: normal color Extrem: General: normal to inspection Psych: Mental Status: mental status grossly normal Course Course Emergency Course: Patient has nebulized albuterol at home and has a rescue inhaler but no spacer. Instructed in use of spacer. COVID is positive. Vital Signs Vital signs: Vital Signs Temperature 36.9 C 01/29/21 18:27 Pulse Rate 106 H 01/29/21 18:27 Respiratory Rate 20 01/29/21 18:27 Blood Pressure 135/78 01/29/21 18:27 Pulse Oximetry 100 01/29/21 18:27 Temperature 36.9 C 01/29/21 18:27 Pulse Rate 106 H 01/29/21 18:27 Respiratory Rate 20 01/29/21 18:27 Blood Pressure 135/78 01/29/21 18:27 Pulse Oximetry 100 01/29/21 18:27 Medical Decision Making Vital Signs Vital Signs: Vital Signs Temperature 36.9 C 01/29/21 18:27 Pulse Rate 106 H 01/29/21 18:27 Respiratory Rate 20 01/29/21 18:27 Blood Pressure 135/78 01/29/21 18:27 Pulse Oximetry 100 01/29/21 18:27 Temperature 36.9 C 01/29/21 18:27 Pulse Rate 106 H 01/29/21 18:27 Respiratory Rate 20 01/29/21 18:27 Blood Pressure 135/78 01/29/21 18:27 Pulse Oximetry 100 01/29/21 18:27 Discharge Plan Discharge Clinical Impression: COVID-19 Patient Disposition: Home, Self-Care Condition: Stable Instructions: Antibiotic Form, COVID-19 and Chronic Health Conditions (ED) Additional Instructions: You are Covid positive. Please try to self isolate from other family members that are currently negative. Use good hand hygiene and cover your face when around other family members. To your asthma we will go ahead and treat you with steroids as a
--- NOTE | 2021-01-29 20:07 | PC.NURSE ---
Rapid COVID swab ordered and obtained at this time. Sent to lab. Lab informed of sample being sent.
[2021-01-29 20:32] LABS: EDCOVIDSCREEN Positive (Negative)
[2021-01-29 21:00] VITALS: BP 110/69; PULSE 70; RESP 18; O2SAT 99
== END 2021-01-29 21:03 | disposition home or self-care (01) ==
PROVIDERS: Physician Assistant; Emergency Provider Family Medicine; PCP Family Medicine
DX: U07.1 COVID-19 (principal); J45.909 Unspecified asthma, uncomplicated; F41.9 Anxiety disorder, unspecified; F32.9 Major depressive disorder, single episode, unspecified; F17.200 Nicotine dependence, unspecified, uncomplicated
CPT/HCPCS: 36415; 71045; 87426; 99283; C9803

== ENCOUNTER 2021-05-17 00:24 | Emergency (ER) | payer OTHER, SELFPAY ==
[2021-05-17 00:26] VITALS: BP 137/86; PULSE 83; RESP 22; TEMP 36.4; O2SAT 97
== END 2021-05-17 02:49 | disposition left against medical advice (07) ==
PROVIDERS: PCP Family Medicine
DX: Z53.21 Procedure and treatment not carried out due to patient leaving prior to being seen by health care provider (principal)
CPT/HCPCS: 99199

== ENCOUNTER 2024-07-07 13:13 | Emergency (ER) | payer OTHER, SELFPAY ==
--- NOTE | ~2024-07-07 | XR_ITS ---
EXAMINATION: XR chest 2V DATE: 07/07/2024 14:08 INDICATION: Chest pain. Shortness of breath. TECHNIQUE: Frontal and lateral views of the chest were obtained. COMPARISON: Chest single view 01/29/2021 FINDINGS: There is no pneumonia, pleural effusion, or pneumothorax. The heart size is normal. There a re changes of anterior fusion procedure in cervical spine. There is mild chronic anterior wedging of multiple mid thoracic vertebral bodies. IMPRESSION: 1. No acute cardiopulmonary disease. Reviewed, dictated and finalized at location [facility] [employer]
[2024-07-07 13:13] VITALS: BP 131/88; PULSE 63; RESP 16; TEMP 36.7; O2SAT 99
--- OUTSIDE RECORDS SUMMARY | 2024-07-07 13:20 | XMS_ITS | Patient Health Record ---
Author Organization [facility] Address [address] [place] [address] Care Team Providers Care Restaurant Culinary Manager Name Role Phone Jennifer Chapman Unavailable [phone] EduinAlena Unavailable [phone] Allergies Allergen (clinical drug ingredient) Drug/Non Drug Allergy documented on EMR Reaction Allergy Type Onset Date Status azithromycin Zithromax Z-Pelon Unknown Drug Allergy Active Reason For Referral Reason therapy Diagnosis 1 Depression (F32.9) Diagnosis 2 Anxiety (F41.9) Referral Organization [facility] Referring Provider First Name Alena Referring Provider Last Name Eduin Referring Provider Speciality Psychiatry Referred Provider Specialty Psychiatry sanjay everett Clinical Notes Kathya Lemons 11/16 02:31:41 PM >Staff KELECHI talks to Consumer. Consumer is in agreement with referral. Staff KELECHI provides Consumer information on how to get connected with [facility]. Referral addressed, closing. Referral Priority Routine Medications Medication SIG (Take, Route, Frequency, Duration) Notes Start Date End Date Status FLUoxetine HCl 10 MG 1 capsule Orally On ce a day for 30 days Active Multivitamin - 1 tablet Orally Once a day Active Albuterol Sulfate 108 (90 Base) MCG/ACT 1 puff as needed Inhalation every 4 hrs Active FLUoxetine HCl 10 MG 1 capsule Orally On ce a day for 30 days Active Ativan 0.5 MG 1 tablet Orally twice a day as needed for 10 days As needed 03/07/2024 Active Social History Tobacco Use: Social History Observation Description Date Details (start date - stop date) Current Smoker NA - NA Tobacco Control (Standard) Question Answer Notes Tobacco use: Current smoker How often do you smoke cigarettes? Every day How many cigarettes a day do you smoke? 21-30 Problems Problem Type SNOMED Code ICD Code Onset Dates Problem Status W/U Status Risk Notes Problem Depression (487712919) Depression (F32.9) Active confirmed Problem Anxiety (49904374) Anxiety (F41.9) Active confirmed Encounters Encounter Location Date Provider Diagnosis [address] [address] 11/17/2023 Jennifer Rosasberto [address] [address] 11/30/2023 Alena Eduin Depression F32.9 and Anxiety F41.[address] [address] 12/14/2023 Alena Eduin Depression F32.9 and Anxiety F41.[address] [address] 01/11/2024 Alena Eduin Depression F32.9 and Anxiety F41.[address] [address] 02/08/2024 Alena Eduin Depression F32.9 and Anxiety F41.[address] [address] 02/22/2024 Alena Eduin Depression F32.9 and Anxiety F41.[address] [address] 03/07/2024 Alena Eduin Depression F32.9 and Anxiety F41.[address] [address] 11/16/2023 Alena Eduin Depression F32.9 and Anxiety F41.9 Assessments Encounter Date Diagnosis (ICD Code) Assessment Notes Treatment Notes Treatment Clinical Notes Section Notes 02/08/2024 Depression (ICD-10 - F32.9) Will decrease Fluoxetine 10mg at this time; to see if this decreases sexual side effects as pt does not want to stop med at this time. Pt has noticed increased moods since starting medication. Pt denies SI/HI at this time. 03/07/2024 Depression (ICD-10 - F32.9) Pt reports that her moods are under control at this time and she is doing well on medication and denies side effects at this time. Pt denies SI/HI at this time. Pt continues to look for a therapist 02/22/2024 Depression (ICD-10 - F32.9) Pt reports that she has noticed some increase in OCD symptoms since decreasing Fluoxetine dose but does not want to increase dose at this time. Pt denies SI/HI at this time. Pt continues to look for a therapist 12/14/2023 Depression (ICD-10 - F32.9) Will continue Fluoxetine 20mg at this time; pt has been tolerating medication well and have noticed increased moods since starting medication. Pt reports that she has started therapy since last appt. Pt denies SI/HI at this time. 11/30/2023 Depression (ICD-10 - F32.9) Will increase Fluoxetine to 20mg at this time; pt has been tolerating medication well and have noticed increased moods since starting medication. Pt reports that she is working towards scheduling therapy appt. Pt denies SI/HI at this time. 11/16/2023 Depression (ICD-10 - F32.9) Will start Fluoxetine to aid depression and anxiety; Risks/benefits/side effects of medication discussed with pt. pt had side effects to Wellbutrin in the past. Will consider trying Vraylar in the future if needed. Therapy referral placed as pt has increased anxiety and depression due to stress with daughter. Will continue to monitor moods due to strong family hx of mood disorders 01/11/2024 Depression (ICD-10 - F32.9) Will continue Fluoxetine 20mg at this time; pt has been tolerating medication well and have noticed increased moods since starting medication. Pt reports that she has started therapy since last appt. Pt denies SI/HI at this time. 01/11/2024 Anxiety (ICD-10 - F41.9) Pt reports that she has not needed to take any Ativan since her last visit. Pt denies SI/HI at this time. Pt understands that this is a short term RX. 11/16/2023 Anxiety (ICD-10 - F41.9) Pt reports that she has responded well to Ativan in the past to help with her anxiety. Pt understands that this is a temporary RX until Fluoxetine has kicked in. Will consider adding BuSpar in the future if needed, Therapy referral placed. 11/30/2023 Anxiety (ICD-10 - F41.9) Pt reports that she has only needed to take the Ativan once since last visit. Pt denies SI/HI at this time. Pt understands that this is a short term RX. 12/14/2023 Anxiety (ICD-10 - F41.9) Pt reports that she has only needed to take the Ativan once since last visit. Pt denies SI/HI at this time. Pt understands that this is a short term RX. 02/22/2024 Anxiety (ICD-10 - F41.9) Pt reports that she has only had to take 2 doses over the past month. Pt denies SI/HI at this time. 03/07/2024 Anxiety (ICD-10 - F41.9) Pt reports that she does not have to take medication often. Pt denies SI/HI at this time. COntinues to look for a therapist. Pt denies SI/HI 02/08/2024 Anxiety (ICD-10 - F41.9) Pt reports that she has only had to take 2 doses since her last visit. Pt denies SI/HI at this time. 11/16/2023 Other Discussed treat ment plan; patient is agreeable and accepting of treatment plan. Patient denies further questions or concerns at this time. Return to clinic 4 weeksObtain lab work at next visitEncouraged counseling; therapy referral placed Discussed sleep hygiene and caffeine intakeDiscussed medication efficacy and purpose; also discussed medication interactions, risks, benefits and side effects. No additional questions concerning medications at this time.Client was educated about risks and benefits of medication, alternative to medication, alternative to no medications, suicidal ideation with SSRI, education related to psychiatric illness, self-administration, compliance with medication, storage and safeguarding of medication. Will assess appropriateness of medication reduction after client shows stability in current clinical s/s. Reduction will not result in a negative outcome.The Patient/Guardian asked appropriate questions, appeared to understand the answers, and decided to accept the treatment and continue being followed.The Patient/Guardian is aware of the need to contact the office or return for an earlier appointment if any problems or concerns arise. May also contact the 24-hour crisis hotline ([facility]), refer to the closest emergency room or call 911 if new symptoms arise of existing symptoms worsen; the Patient/Guardian is aware that this would apply to symptoms such as: suicidal ideation, homicidal ideation, high risk behaviors, manic symptoms, psychotic symptoms, physical symptoms, or any other symptoms that may be dangerous to self or others. 11/30/2023 Other Discussed treat ment planDiscussed sleep hygiene and caffeine intakeReturn to clinic 2-3 weeksEncouraged counselingDiscussed treatment plan; patient is agreeable and accepting of treatment plan. Patient denies further questions or concerns at this time. The Patient/Guardian asked appropriate questions, appeared to understand the answers, and decided to accept the treatment and continue being followed.Benzodiazepin es are not recommended for long-term use due to potent and dangerous side effects that include increased drowsiness, memory impairment, increased irritability, mood changes, and worsening of PTSD symptoms. Benzodiazepines increase respiratory depression which can aggravate conditions such as sleep apnea and COPD leading to possible . They should also never be combined with alcohol, pain medications (especially opioids), or street drugs because this can lead to overdose and possible .The Patient/Guardian is aware of the need to contact the office or return for an earlier appointment if any problems or concerns arise. May also contact the 24-hour crisis hotline ([facility]), refer to the closest emergency room or call 911 if new symptoms arise of existing symptoms worsen; the Patient/Guardian is aware that this would apply to symptoms such as: suicidal ideation, homicidal ideation, high risk behaviors, manic symptoms, psychotic symptoms, physical symptoms, or any other symptoms that may be dangerous to self or others. 12/14/2023 Other Discussed treat ment planDiscussed sleep hygiene and caffeine intakeReturn to clinic 3-4 weeksEncouraged continued counselingDiscussed treatment plan; patient is agreeable and accepting of treatment plan. Patient denies further questions or concerns at this time. The Patient/Guardian asked appropriate questions, appeared to understand the answers, and decided to accept the treatment and continue being followed.Benzodiazepin es are not recommended for long-term use due to potent and dangerous side effects that include increased drowsiness, memory impairment, increased irritability, mood changes, and worsening of PTSD symptoms. Benzodiazepines increase respiratory depression which can aggravate conditions such as sleep apnea and COPD leading to possible . They should also never be combined with alcohol, pain medications (especially opioids), or street drugs because this can lead to overdose and possible .The Patient/Guardian is aware of the need to contact the office or return for an earlier appointment if any problems or concerns arise. May also contact the 24-hour crisis hotline ([facility]), refer to the closest emergency room or call 911 if new symptoms arise of existing symptoms worsen; the Patient/Guardian is aware that this would apply to symptoms such as: suicidal ideation, homicidal ideation, high risk behaviors, manic symptoms, psychotic symptoms, physical symptoms, or any other symptoms that may be dangerous to self or others. 01/11/2024 Other Discussed treat ment planDiscussed sleep hygiene and caffeine intakeReturn to clinic 3-4 weeksEncouraged continued counselingDiscussed treatment plan; patient is agreeable and accepting of treatment plan. Patient denies further questions or concerns at this time. The Patient/Guardian asked appropriate questions, appeared to understand the answers, and decided to accept the treatment and continue being followed.Benzodiazepin es are not recommended for long-term use due to potent and dangerous side effects that include increased drowsiness, memory impairment, increased irritability, mood changes, and worsening of PTSD symptoms. Benzodiazepines increase respiratory depression which can aggravate conditions such as sleep apnea and COPD leading to possible . They should also never be combined with alcohol, pain medications (especially opioids), or street drugs because this can lead to overdose and possible . 02/08/2024 Other Discussed treat ment planDiscussed sleep hygiene and caffeine intakeReturn to clinic 2 weeksEncouraged continued counselingDiscussed treatment plan; patient is agreeable and accepting of treatment plan. Patient denies further questions or concerns at this time. The Patient/Guardian asked appropriate questions, appeared to understand the answers, and decided to accept the treatment and continue being followed.Benzodiazepin es are not recommended for long-term use due to potent and dangerous side effects that include increased drowsiness, memory impairment, increased irritability, mood changes, and worsening of PTSD symptoms. Benzodiazepines increase respiratory depression which can aggravate conditions such as sleep apnea and COPD leading to possible . They should also never be combined with alcohol, pain medications (especially opioids), or street drugs because this can lead to overdose and possible .The Patient/Guardian is aware of the need to contact the office or return for an earlier appointment if any problems or concerns arise. May also contact the 24-hour crisis hotline ([facility]), refer to the closest emergency room or call 911 if new symptoms arise of existing symptoms worsen; the Patient/Guardian is aware that this would apply to symptoms such as: suicidal ideation, homicidal ideation, high risk behaviors, manic symptoms, psychotic symptoms, physical symptoms, or any other symptoms that may be dangerous to self or others. 02/22/2024 Other Discussed treat ment planDiscussed sleep hygiene and caffeine intakeReturn to clinic 2 weeksEncouraged continued counselingDiscussed treatment plan; patient is agreeable and accepting of treatment plan. Patient denies further questions or concerns at this time. The Patient/Guardian asked appropriate questions, appeared to understand the answers, and decided to accept the treatment and continue being followed.Benzodiazepin es are not recommended for long-term use due to potent and dangerous side effects that include increased drowsiness, memory impairment, increased irritability, mood changes, and worsening of PTSD symptoms. Benzodiazepines increase respiratory depression which can aggravate conditions such as sleep apnea and COPD leading to possible . They should also never be combined with alcohol, pain medications (especially opioids), or street drugs because this can lead to overdose and possible .The Patient/Guardian is aware of the need to contact the office or return for an earlier appointment if any problems or concerns arise. May also contact the 24-hour crisis hotline ([facility]), refer to the closest emergency room or call 911 if new symptoms arise of existing symptoms worsen; the Patient/Guardian is aware that this would apply to symptoms such as: suicidal ideation, homicidal ideation, high risk behaviors, manic symptoms, psychotic symptoms, physical symptoms, or any other symptoms that may be dangerous to self or others. 03/07/2024 Other Discussed treatment planDiscussed sleep hygiene and caffeine intakeReturn to clinic 4 weeksEncouraged continued counselingDiscussed treatment plan; patient is agreeable and accepting of treatment plan. Patient denies further questions or concerns at this time. The Patient/Guardian asked appropriate questions, appeared to understand the answers, and decided to accept the treatment and continue being followed.Benzodiazepin es are not recommended for long-term use due to potent and dangerous side effects that include increased drowsiness, memory impairment, increased irritability, mood changes, and worsening of PTSD symptoms. Benzodiazepines increase respiratory depression which can aggravate conditions such as sleep apnea and COPD leading to possible . They should also never be combined with alcohol, pain medications (especially opioids), or street drugs because this can lead to overdose and possible .The Patient/Guardian is aware of the need to contact the office or return for an earlier appointment if any problems or concerns arise. May also contact the 24-hour crisis hotline ([facility]), refer to the closest emergency room or call 911 if new symptoms arise of existing symptoms worsen; the Patient/Guardian is aware that this would apply to symptoms such as: suicidal ideation, homicidal ideation, high risk behaviors, manic symptoms, psychotic symptoms, physical symptoms, or any other symptoms that may be dangerous to self or others. Patient made aware that this provider will be leaving [facility] as of 03/08/2024 and she will be transitioned to a new provider for her next appointment. Plan Of Treatment No Information Insurance Providers Payer Name Payer Address Payer Phone Subscriber Number Group Number Insured Name Patient Relationship to Insured Coverage Start Date Coverage End Date [facility] [address] [place] [address] [id number] Cely Tatum Self - patient is the insured 4 Medical (General) History Medical History History ICD Code Asthma Surgical History Surgery Date(Month/Year) cervical fusion tubal ligation
--- OUTSIDE RECORDS SUMMARY | 2024-07-07 13:20 | XMS_ITS | Referral Summary ---
Author Organization [facility] [employer] Address [address] [place] [address] Care Team Providers Care Envelope Addresser Name Role Phone João Zapata MD Primary Care Provider [phone] Kimberly Sabillon LOGISTICAL ENGINEER Unavailable [phone] Source Comments [facility] [employer],non-owned Affiliates and Associated Physician Practices is amultiple site organization consisting of ambulatory clinics and hospital sitesin [place], [place], [place] and [place]. This disclosure is being madepursuant to the Care Everywhere program and may not contain all information available regarding this patient. Last updated 18.[facility] [employer] Allergies No known active allergies Medications * Be aware that medications may not be up to date on this document. Alwaysverify current medications with the patient. Medication Sig Dispensed Refills Start Date End Date Status sertraline (ZOLOFT) 100 MG tablet TAKE 1.5 TABLET ONCE A DAY ORALLY 30 DAY(S) 2 11/16/2016 Active albuterol (PROVENTIL;VENTOLIN) (2.5 MG/3ML) 0.083% nebulizer solution Inhale 1 Vial by mouth every 6 hours as needed for Shortness of Breath or Wheezing Active traMADol (ULTRAM) 50 MG tablet Take 1 Tab by mouth every 4 hours as needed for Pain 20 Tab 12/01/2016 Active Social History Tobacco Use Types Packs/Day Years Used Date Smoking Tobacco: Every Day Cigarettes Smokeless Tobacco: Never Alcohol Use Standard Drinks/Week Comments No 0 (1 standard drink = 0.6 oz pur e alcohol) Sex and Gender Information Value Date Recorded Sex Assigned at Not on file Gender Identity Not on file Sexual Orientation Not on file Last Filed Vital Signs Vital Sign Reading Time Taken Comments Blood Pressure 112/95 12/01/2016 3:11 PM CDT Pulse 69 12/01/2016 3:11 PM CDT Temperature 36.9 ??C (98.5 ??F) 12/01/2016 3:11 PM CD T Respiratory Rate 16 12/01/2016 3:11 PM CDT Oxygen Saturation 99% 12/01/2016 3:11 PM CDT Inhaled Oxygen Concentration - - Weight 52.2 kg (115 lb) 12/01/2016 12:38 PM CDT Height 157.5 cm (5' 2 ) 12/01/2016 12:38 PM CDT Body Mass Index 21.03 12/01/2016 12:38 PM CDT Plan of Treatment Not on file Procedures Procedure Name Priority Date/Time Associated Diagnosis Comments LIPID PROFILE Routine 04/28/2016 9:01 AM NODULIZER Encounter to establish care with new doctor from Last 3 Months or Most Recently Relevant to Health Maintenance Results * (ABNORMAL) LIPID PROFILE (04/28/2016 9:01 AM NODULIZER) Cholesterol 111 <200 mg/dL 04/28/2016 10:33 AM NODULIZER [facility] Triglycerides 94 <150 mg/dL 04/28/2016 10:33 [facility] HDL Cholesterol 29(L) >40 mg/dL 6 10:33 AM [facility] Chol HDL Ratio 3.8 1.0 - 6.0 04/28/2016 10:33 AM [facility] LDL Calculated 63(L) 65 - 130 mg/dL 04/28/2016 10:33 AM [facility] VLDL Calculated 19 10 - 40 mg/dL 04/28/2016 10:33 AM [facility] Blood BLOOD SPECIMEN / Unknown 04/28/2016 9:01 AM NODULIZER 04/28/2016 9:49 AM [facility] Narrative [facility] - 04/28/2016 10:33 AM NODULIZER Lipid Profile Comment: CHOLESTEROL LEVEL..................CLINICAL INTERPRETATION LESS THAN 200 MG/DL..............................DESIRABLE 200-239 MG/DL..............................BORDERLINE HIGH GREATER THAN 240 MG/DL................................HIGH LDL-CHOLESTEROL LEVEL..............CLINICAL INTERPRETATION LESS THAN 100 MG/DL................................OPTIMAL 100-129 MG/DL.................................NEAR OPTIMAL GREATER THAN 160 MG/DL...........................HIGH RISK HDL RISK LEVEL GREATER THEN 60 MG/DL............................DECREASED 40-60 MG/DL........................................AVERAGE LESS THAN 40 MG/DL...............................INCREASED TRIGLYCERIDE LEVEL..................CLINICAL INTERPRETATION LESS THAN 150 MG/DL...............................DESIRABLE 150-199 MG/DL...............................BORDERLINE HIGH 200-499 MG/DL..........................................HIGH GREATER THAN 500..................................VERY HIGH THE NATIONAL CHOLESTEROL EDUCATION PROGRAM HAS SET THE ABOVE GUIDELINES (REFERANCE VALUES) FOR CHOLESTEROL AND HDL. RISK ASSOCIATED WITH CHOLESTEROL/HDL RATIOS RISK....................MALE RATIO.............FEMALE RATIO 1/2 AVERAGE.................<3.4.......................<3.3 LOW RISK.................... 4.0 ...................... 3.8 AVERAGE..................... 5.0 ...................... 4.5 2X AVERAGE.................. 9.5 ...................... 7.0 3X AVERAGE...................>23........................>11 Kimberly Sabillon NP LAB - CHEMI STRY ORDERABLES [facility] [address] [place] [address], [facility] from Last 3 Months or Most Recently Relevant to Health Maintenance Additional Health Concerns Infection Onset Date Last Indicated MRSA Comment:+ cx abscess 12/01/16 12/01/2016 12/01/2016 Care Teams Envelope Addresser Relationship Specialty Start Date End Date João Zapata MD [address] [place] [address] PCP - General 04/12/19 Kimberly Sabillon NP [facility] [place] [address] Nurse Practitioner 04/12/19
--- OUTSIDE RECORDS SUMMARY | 2024-07-07 13:20 | XMS_ITS | Patient Health Summary ---
Author Organization [facility] Address [address] [place] [address] Care Team Providers Care Filteration Operator Name Role Phone João Zapata MD Primary Care Provider [phone] Kimberly Sabillon PHARMACIST ASSISTANT Unavailable [phone] Note from [facility],non-owned Affiliates and Associated Physician Practices is amultiple site organization consisting of ambulatory clinics and hospital sitesin [place], [place], [place] and [place]. This disclosure is being madepursuant to the Care Everywhere program and may not contain all information available regarding this patient. Last updated 18.[facility] Allergies No known active allergies Medications * Be aware that medications may not be up to date on this document. Alwaysverify current medications with the patient. * sertraline (ZOLOFT) 100 MG tablet(Started 11/16/2016) TAKE 1.5 TABLET ONCE A DAY ORALLY 30 DAY(S) 2 refills left * albuterol (PROVENTIL;VENTOLIN) (2.5 MG/3ML) 0.083% nebulizer solution Inhale 1 Vial by mouth every 6 hours as needed for Shortness of Breath or Wheezing * traMADol (ULTRAM) 50 MG tablet(Started 12/01/2016) Take 1 Tab by mouth every 4 hours as needed for Pain Social History Tobacco Use Types Packs/Day Years [...] Mass Index 21.03 12/01/2016 12:38 PM CDT Procedures * CT FACIAL BONES WWO CONTRAST(Performed 12/01/2016) Performed for Abscess of mandible * CULTURE WOUND+GRAM STAIN(Performed 12/01/2016) * COMPREHENSIVE METABOLIC PANEL(Performed 12/01/2016) * CBC W AUTO DIFFERENTIAL(Performed 12/01/2016) * CULTURE BLOOD(Performed 12/01/2016) * T4 FREE(Performed 04/28/2016) Performed for Encounter to establish care with new doctor * VITAMIN D 25-HYDROXY(Performed 04/28/2016) Performed for Encounter to establish care with new doctor * TSH REFLEX FREE T4(Performed 04/28/2016) Performed for Encounter to establish care with new doctor * LIPID PROFILE(Performed 04/28/2016) Performed for Encounter to establish care with new doctor * COMPREHENSIVE METABOLIC PANEL(Performed 04/28/2016) Performed for Encounter to establish care with new doctor * CBC W AUTO DIFFERENTIAL(Performed 04/28/2016) Performed for Encounter to establish care with new doctor Results * CT FACIAL BONES W WO CONTRAST 19695 (12/01/2016 2:00 PM CDT) Anatomical Region Laterality Modality Head Computed Tomogra phy 12/01/2016 2:38 PM CDT Impressions 12/01/2016 3:23 PM CDT There is a metallic marker present below the angle of the mandible on the left. There is associated subcutaneous, superficial swelling with increased attenuation. Along the skin surface there is a 7 mm peripherally enhancing lesion/pustule, consistent with the given history of abscess. Parotid and submandibular glands are symmetric. No gross evidence of lymphadenopathy. Middle ears, mastoid air cells and paranasal sinuses are aerated and clear. Adry bullosa of the right middle turbinate. The ostiomeatal complexes are patent. No bone destruction or air-fluid level. Globes and orbital contents are symmetric. Report printed to the Emergency Department at 2:47 p.m. on 12/01/2016. Edited by Maryuri Bacon on 12/01/2016 2:48 PM Narrative 12/01/2016 3:23 PM CDT IMAGING STUDIES: CT SINUS FACIAL BONES WITH AND WITHOUT CONTRAST DATE: 12/01/2016 2:09 PM INDICATION: Inflammatory conditions of jaws. COMPARISON: No comparisons. CONTRAST: 80 mL Omnipaque-300 IV. Radiation dose reduction technique was utilized. Procedure Note Saeid Wilson MD - 12/01/2016 IMAGING STUDIES: CT SINUS FACIAL BONES WITH AND WITHOUT CONTRAST DATE: 12/01/2016 2:09 PM INDICATION: Inflammatory conditions of jaws. COMPARISON: No comparisons. CONTRAST: 80 mL Omnipaque-300 IV. Radiation dose reduction technique was utilized. IMPRESSION There is a metallic marker present below the angle of the mandible on the left. There is associated subcutaneous, superficial swelling with increased attenuation. Along the skin surface there is a 7 mm peripherally enhancing lesion/pustule, consistent with the given history of abscess. Parotid and submandibular glands are symmetric. No gross evidence of lymphadenopathy. Middle ears, mastoid air cells and paranasal sinuses are aerated and clear. Adry bullosa of the right middle turbinate. The ostiomeatal complexes are patent. No bone destruction or air-fluid level. Globes and orbital contents are symmetric. Report printed to the Emergency Department at 2:47 p.m. on 12/01/2016. Edited by Maryuri Bacon on 12/01/2016 2:48 PM Fredy Wallace ELECTRONIC INTELLIGENCE OFFICER-MATLAB DEVELOPER CT ORDERABLES * (ABNORMAL) CULTURE WOUND+GRAM STAIN (12/01/2016 1:38 PM CDT) [facility] Signature Culture 2+ growth Staphylococcus aureus methicillin-resist ant (MRSA)(A) MYRNA 12/04/2016 7:41 AM CDT [facility] Gram Stain Few White blood cells 12/04/2016 7:41 AM CDT [facility] Gram Stain Many Gram-positive cocci 12/04/2016 7:41 AM CDT [facility] Microbiology SPECIMEN FROM ABSCESS / Unknown 12/01/2016 1:38 PM CDT 12/01/2016 1:43 PM CDT Narrative [facility] - 12/04/2016 7:41 AM CDT Methicillin Resistant Staphylococci (MRSA) are resistant to all formulary beta- lactam antibiotics. Contact precautions required. Organism Antibiotic Method Susceptibility Staphylococcus aureus methicillin-resistant (MRSA) Clindamycin MYRNA <=0.25 ug/mL: Susceptible Staphylococcus aureus methicillin-resistant (MRSA) Erythromycin MYRNA >4 ug/mL: Resistant Staphylococcus aureus methicillin-resistant (MRSA) Oxacillin MYRNA >2 ug/mL: Resistant Staphylococcus aureus methicillin-resistant (MRSA) Rifampin MYRNA <=1 ug/mL: Susceptible Staphylococcus aureus methicillin-resistant (MRSA) Tetracycline MYRNA <=1 ug/mL: Susceptible Staphylococcus aureus methicillin-resistant (MRSA) Trimethoprim-sulfamethoxa zole MYRNA <=0.5 ug/mL: Susceptible Staphylococcus aureus methicillin-resistant (MRSA) Vancomycin MYRNA 1 ug/mL: Susceptible Fredy Wallace APRNNihon Gigei LAB - MICROBIO LOGY ORDERABLES Performing Organization Address [facility] Co de Phone Number [facility] [address] [place] [address] * CULTURE BLOOD (12/01/2016 1:19 PM CDT) [facility] Culture No growth day 5 MYRNA 12/07/2016 6:22 AM CDT [facility] Blood PERIPHERAL BLOOD / Unknown Lab Venipuncture / Unknown 12/01/2016 1:19 PM CDT 12/01/2016 1:58 PM CDT Fredy Wallace ELECTRONIC INTELLIGENCE OFFICERMATLAB DEVELOPER LAB - MICROBIO LOGY ORDERABLES Performing Organization Address [facility] de Phone Number [facility] [address] * (ABNORMAL) CBC W AUTO DIFFERENTIAL (12/01/2016 1:19 PM CDT) Only the most recent of2 resultswithin the time period is included. [facility] Signature WBC 16.9(H) 4.0 - 10.0 x10E9/L 12/01/2016 1:[address] [facility] RBC 3.94 3.93 - 5.22 x10E12/L 12/01/2016 1:[address] [facility] Hemoglobin 12.9 11.2 - 15.7 gm/dL 12/01/2016 1:[address] [facility] Hematocrit 36.9 34.1 - 44.9 % 12/01/2016 1:[address] [facility] MCV 93.7 78.0 - 100.0 fl 12/01/2016 1:[address] [facility] MCH 32.7 25.6 - 34.0 pg 12/01/2016 1:[address] [facility] MCHC 35.0 32.3 - 36.5 gm/dL 12/01/2016 1:[address] [facility] RDW 12.7 11.6 - 14.4 % 12/01/2016 1:[address] [facility] MPV 10.3 9.4 - 12.4 fl 12/01/2016 1:[address] [facility] Platelet Count 336 163 - 369 x10E9/L 12/01/2016 1:[address] [facility] Neutrophils % 76.6(H) 40.0 - 75.0 % 12/01/2016 1:[address] [facility] Lymphocytes % 19.1(L) 19.3 - 53.1 % 12/01/2016 1:[address] [facility] Monocytes % 3.3(L) 4.7 - 12.5 % 12/01/2016 1:[address] [facility] Eosinophils % 0.7 0.7 - 7.0 % 12/01/2016 1:[address] [facility] Basophils % 0.1 0.1 - 1.2 % 12/01/2016 1:[address] [facility] Immature Granulocytes 0.2 0 - 0.5 % 12/01/2016 1:[address] [facility] Neutrophil Absolute 12.92(H) 1.56 - 6.13 x10E9/L 12/01/2016 1:[address] [facility] Lymphocytes Absolute 3.22 1.18 - 3.74 x10E9/L 12/01/2016 1:30 PM CDT [facility] Monocytes Absolute 0.55 0.24 - 0.86 x10E9/L 12/01/2016 1:30 PM CDT [facility] Eosinophils Absolute 0.12 0.04 - 0.54 x10E9/L 12/01/2016 1:30 PM CDT [facility] Basophils Absolute 0.01 0.01 - 0.08 x10E9/L 12/01/2016 1:30 PM CDT [facility] Immature Granulocytes Absolute 0.03 0 - 0.03 x10E9/L 12/01/2016 1:30 PM CDT [facility] nRBC Auto 0 <=0 /100 WBC 12/01/2016 1:30 PM CDT [facility] nRBC Absolute 0.00 <=0 x10E9/L 12/01/2016 1:30 PM CDT [facility] Blood BLOOD SPECIMEN / Unknown Lab Venipuncture / Unknown 12/01/2016 1:19 PM CDT 12/01/2016 1:26 PM CDT Fredy Wallace ELECTRONIC INTELLIGENCE OFFICER-MATLAB DEVELOPER LAB - HEMATOLO GY ORDERABLES Performing Organization Address [facility]/State/[facility] Co de Phone Number [facility] [address] * (ABNORMAL) COMPREHENSIVE METABOLIC PANEL (12/01/2016 1:19 PM CDT) Only the most recent of2 resultswithin the time period is included. Glucose 75 70 - 125 mg/dL 12/01/2016 1:52 PM CDT [facility] Sodium 142 136 - 145 mmol/L 12/01/2016 1:52 PM CDT [facility] Potassium 3.4 3.4 - 4.5 mmol/L 12/01/2016 1:52 PM CDT [facility] Chloride 109(H) 98 - 107 mmol/L 12/01/2016 1:52 PM CDT [facility] CO2 23 22 - 29 mmol/L 12/01/2016 1:52 PM CDT [facility] Calcium 9.1 8.4 - 10.2 mg/dL 12/01/2016 1:52 PM CDT [facility] Anion Gap 13 10 - 20 mmol/L 12/01/2016 1:52 PM CDT [facility] BUN 4.5(L) 9.8 - 20.1 mg/dL 12/01/2016 1:[address] [facility] Creatinine 0.60 0.57 - 1.11 mg/dL 12/01/2016 1:[address] [facility] eGFR by MDRD >60 >60 mL/min/1.7 3m2 12/01/2016 1:[address] [facility] eGFR by MDRD >60 >60 mL/min/1.7 3m2 12/01/2016 1:52 PM T [facility] Alkaline Phosphatase 74 40 - 150 U/L 12/01/2016 1:[address] [facility] ALT 11 5 - 55 U/L 12/01/2016 1:[address] [facility] AST 14 5 - 34 U/L 12/01/2016 1:[address] [facility] Protein Total 6.6 6.4 - 8.3 gm/dL 12/01/2016 1:[address] [facility] Albumin 3.7 3.5 - 5.0 gm/dL 12/01/2016 1:[address] [facility] Globulin Total 2.9 2.6 - 4.0 gm/dL 12/01/2016 1:[address] [facility] Albumin/Globulin Ratio 1.3 0.9 - 1.6 12/01/2016 1:[address] [facility] Bilirubin Total 0.4 0.2 - 1.2 mg/dL 12/01/2016 1:[address] [facility] Blood BLOOD SPECIMEN / Unknown Lab Venipuncture / Unknown 12/01/2016 1:19 PM CDT 12/01/2016 1:26 PM T Fredy Wallace ELECTRONIC INTELLIGENCE OFFICER-MATLAB DEVELOPER LAB - CHEMISTR Y ORDERABLES Performing Organization Address City/State/[facility] Co de Phone Number [facility] [address] * (ABNORMAL) TSH REFLEX FREE T4 (04/28/2016 9:01 AM DIP UNIT OPERATOR) TSH 0.3383(L) 0.35 - 4.94 uIU/mL 04/28/2016 10:55 AM DIP UNIT OPERATOR [facility] Blood BLOOD SPECIMEN / Unknown 04/28/2016 9:01 AM DIP UNIT OPERATOR 04/28/2016 9:49 AM DIP UNIT OPERATOR Kimberly Sabillon NP LAB - CHEMI STRY ORDERABLES [facility] [address] * (ABNORMAL) VITAMIN D 25-HYDROXY (04/28/2016 9:01 AM DIP UNIT OPERATOR) Pathologist [facility] Vitamin D, 25 Hydroxy 25.5(L) 30 - 60 ng/mL 04/28/2016 1:56 PM DIP UNIT OPERATOR [facility] Blood BLOOD SPECIMEN / Unknown 04/28/2016 9:01 AM DIP UNIT OPERATOR 04/28/2016 9:49 AM DIP UNIT OPERATOR Narrative [facility] - 04/28/2016 1:56 PM DIP UNIT OPERATOR Vitamin D interpretative comment: This immunoassay methodology detects both 20-OH vitamin D3 and 25-OH vitamin D2, but 25-OH vitamin D2 is detectable at a mean recovery level of 82% depending on the type of vitamin D2 prescribed. ??When monitoring of patients on vitamin D2 therapy, alternative vitamin D test with different methodology is suggested to confirm the results in patients with sub-therapeutic level or if the vitamin D results are inconsistent with clinical evidence. Kimberly Sabillon NP LAB - CHEMI STRY ORDERABLES Performing Organization Address City/[facility]/ZIP Co de Phone Number [facility] [address] * T4 FREE (04/28/2016 9:01 AM DIP UNIT OPERATOR) [facility] T4 Free 0.92 0.71 - 1.48 ng/dL 04/28/2016 11:29 AM DIP UNIT OPERATOR [facility] Blood BLOOD SPECIMEN / Unknown 04/28/2016 9:01 AM DIP UNIT OPERATOR 04/28/2016 9:49 AM DIP UNIT OPERATOR Kimberly Sabillon NP LAB - CHEMI STRY ORDERABLES [facility] [address] * (ABNORMAL) LIPID PROFILE (04/28/2016 9:01 AM DIP UNIT OPERATOR) Cholesterol 111 <200 mg/dL 04/28/2016 10:33 AM [facility] Triglycerides 94 <150 mg/dL 04/28/2016 10:33 AM [facility] HDL Cholesterol 29(L) >40 mg/dL 6 10:33 AM [facility] Chol HDL Ratio 3.8 1.0 - 6.0 04/28/2016 10:33 AM [facility] LDL Calculated 63(L) 65 - 130 mg/dL 04/28/2016 10:33 AM [facility] VLDL Calculated 19 10 - 40 mg/dL 04/28/2016 10:33 AM [facility] Blood BLOOD SPECIMEN / Unknown 04/28/2016 9:01 AM [facility] 04/28/2016 9:49 AM [facility] - 04/28/2016 10:33 AM [facility] Lipid Profile Comment: CHOLESTEROL LEVEL..................CLINICAL INTERPRETATION LESS [...] NP LAB - CHEMI STRY ORDERABLES [facility] [address] [place], [place] [address] Care Teams Filteration Operator Relationship Specialty Start Date End Date João Zapata MD [address] [place] [address] PCP - General 04/12/19 Kimberly Sabillon NP [facility] [place] [address] Nurse Practitioner 04/12/19
--- OUTSIDE RECORDS SUMMARY | 2024-07-07 13:20 | XMS_ITS ---
Author Organization [facility] Address [address] [place] [address] Care Team Providers Care Blower Room Attendant Name Role Phone Paris Denny Unavailable [phone] Allergies Allergen (clinical drug ingredient) Drug/Non Drug Allergy documented on EMR Reaction Allergy Type Onset Date Status azithromycin Zithromax Z-Pelon Unknown Drug Allergy Active REASON FOR VISIT 1 Month Psych F/U & Med Refill Medications Medication SIG (Take, Route, Frequency, Duration) Notes Start Date End Date Status FLUoxetine HCl 10 MG 1 capsule Orally On ce a day for 30 days Active Albuterol Sulfate 108 (90 Base) MCG/ACT 1 puff as needed Inhalation every 4 hrs Active Ativan 0.5 MG 1 tablet Orally twice a day as needed for 10 days As needed Active Multivitamin - 1 tablet Orally Once a day Active Encounters Encounter Location Date Provider Diagnosis [address] [address] 02/08/2024 Paris Denny Depression F32.9 and Anxiety F41.9 Assessments Encounter [...] medication. Pt denies SI/HI at this time. 02/08/2024 Anxiety (ICD-10 - F41.9) Pt reports that she has only had to take 2 doses since her last visit. Pt denies SI/HI at this time. 02/08/2024 Other Discussed treat ment planDiscussed sleep [...] May also contact the 24-hour crisis hotline ([facility]), refer to the closest emergency room or call 911 if new symptoms arise of existing symptoms worsen; the Patient/Guardian is aware that this would apply to symptoms such as: suicidal ideation, homicidal ideation, high risk behaviors, manic symptoms, psychotic symptoms, physical symptoms, or any other symptoms that may be dangerous to self or others. Plan Of Treatment Medication Medication Name Sig Start Date Stop Date Notes FLUoxetine HCl 10 MG 1 capsule Orally On ce a day for 30 days Ativan 0.5 MG 1 tablet Orally twic e a day as needed for 10 days Treatment Notes Assessment Notes Depression Will decrease Fluoxe frederick 10mg at this time; to see if this decreases sexual side effects as pt does not want to stop med at this time. Pt has noticed increased moods since starting medication. Pt denies SI/HI at this time. Anxiety Pt reports that she has only had to take 2 doses since her last visit. Pt denies SI/HI at this time. Other Discussed treatment planDiscussed sleep hygiene and caffeine intakeReturn to clinic 2 weeksEncouraged continued counselingDiscussed treatment plan; patient is agreeable and accepting of treatment plan. Patient denies further questions or concerns at this time. The Patient/Guardian asked appropriate questions, appeared to understand the answers, and decided to accept the treatment and continue being followed.Benzodiazepines are not recommended for long-term use due [...] may be dangerous to self or others. Next Appt Details Follow Up: 2 Weeks, Reason: Medication management - can be telehealth appt. Progress Notes * Cely TATUMDOB:1980 (43 yo F)Acc No.[id number]:02/08/2024 Patient:?Cely TATUM Provider:?PARIS DENNY, MSN, CHIPPER-C, PMHNP -BC :1980???Age:43 Y???Sex:Female D ate:02/08/2024 Address:[address] [place], [place] [id number] Subjective: * Chief Complaints: * ???1 Month Psych F/U & Med R efill * HPI: ???Screening:?[place] Suicide Severity Rating Scale (LF)?Do you want to initiate with?Screener form,?1. Wish to be : Have you wished you were or wished you could go to sleep and not wake up??No,?2. Suicidal Thoughts: Have you actually had any thoughts of killing yourself??No,?6. Suicide Behaviour: Have you ever done anything,started to do anything, or prepared to end your life??No,?Interpretation:?Low Risk.?This session was completed telephonically/zoom due to COVID-19 emergency, with client/parental/guardian consent. ???CSSRS Interpretation and Follow Up Plan:?CSSRS Interpretation and Follow Up Plan. ?CSSRS Interpretation and Follow Up Plan?Moderate or High risk requires selection of a follow up plan?CSSRS No/Low: intervention not needed at this time - Client talked with this provider. Denies plan/intent. Denies needing crisis intervention at this time. Verified with client that they have access to crisis numbers if and as needed..?Depression Screening:?PHQ-9?Little interest or pleasure in doing things?Several days,?Feeling down, depressed, or hopeless?More than half the days,?Trouble falling or staying asleep, or sleeping too much?Nearly every day,?Feeling tired or having little energy?Several days,?Poor appetite or overeating?Nearly every day,?Feeling bad about yourself or that you are a failure, or have let yourself or your family down?Several days,?Trouble concentrating on things, such as reading the newspaper or watching television?Not at all,?Moving or speaking so slowly that other people could have noticed; or the opposite, being so fidgety or restless that you have been moving around a lot more than usual?Several days,?Thoughts that you would be better off or of hurting yourself in some way?Not at all,?Total Score?12,?Interpretation?Moderate Depression.?Intervention?Depression Screening Findings?Positive,?Follow-Up for Depression?No Referral necessary, patient involved in behavioral health treatment ..?Constitutional:? Chief Complaint: Follow-up medications? HPI: 43-year-old female presents to clinic via telephone to follow-up on medications. Patient was last seen on 01/11/2024? at which time Fluoxetine was refilled and Ativan was continued.? PHQ-9 score was 10 at that time. Patient reports Things are getting better with me; I do have some side effects that I am not sure if it is me or the medications. I know I need to keep going to therapy. I think my moods are better; I am a grown woman and I am in a committed relationship but my sex drive has decreased quite a bit. But I think I want to work through therapy with that. I have had much worse side effects with other meds. I also am having to wear a pad all the time and I am having bladder issues. The other thing is my sleep; I am not sleeping that great; I haven't tried anything; I was wondering about trying Melatonin. But my moods are way better. I am having more positive than negatives right now. I am fighting my depression with Ifeoma moving out; my heart is broken. I am weak over this and traumatized over it well. She is being difficult and it is affecting my depression. I am being better about doing things with Trino; I am out in the world moving more and we went to [place] the other day. We planned a trip to go my sister's for Thanksgiving; we bought the plan tickets and will be going to visit her in [place]. ? Pt reports that she took 2 doses of Ativan since her last appointment? Pt reports that her fiance can also see a difference in her since she started taking the medication.? PHQ-9 score is 12 today. Pt denies SI/HI at this time . Pt denies need to talk to crisis counselor at this time Per ilpmp, Ativan 0.5mg #20 was last refilled on 11/16/2023 Previous Diagnosis: Depression, anxiety? Goals: Finding a new therapist, continue to journal, driving more, becoming more social?? Coping strategies: Separate self from the stress. Spend time alone, sit outside and smoke, journal, regroup self? Social Activities/Hobbies: Spending time with family, went to movies, shopping? Drugs/ETOH/nicotine: Marijuana use if issues sleeping? Therapy: Reports that she is in-between therapists at this time.? Medications effective: Yes Medication Adherence: Taking as prescribed? Side effects: Decreased sex drive? Past medications: Zoloft, Buspar, Wellbutrin (had seizure like activity after starting medicine), Seroquel? Sleep: Reports issues sleeping at times? Appetite: Increased? Depression: 7 out of 10? Anxiety/Panic attacks: 4 out of 10? Anger/Irritability: Irritability is touch and go ? Hallucinations/Paranoia: Denies? Current Suicidal ideation: Denies? Homicidal ideation: Denies? Medical concerns: Asthma? Hospitalizations/medication changes by other providers: Denies. * ROS:?*PSYCH ROS2:?Elevated mood symptoms?Denies.?Admits?mood swings.?Thoughts of self harm?Denies.?Denies?Homicidal thoughts.?Hyperactivity?Denies.?Inattention?Admits.?Behavior concerns?Denies.?Disruptive behavior?Denies.?Obsessive behavior?Denies.?Compulsive behavior?Denies.?Paranoia?Denies.?Difficulty concentrating?Admits.?sleeping more than usual?Denies.?Admits?Anxiety.?Denies?Auditory/visual hallucinations.?Denies?Delusions.?Admits?Depressed mood.?Admits?Difficulty sleeping.?Denies?Eating disorder.?Denies?Loss of appetite.?Admits?Stressors.?Denies?Substance abuse.?Denies?Suicidal thoughts.? * Medical History:? * Surgical History:?cervical f usion tubal ligation * Hospitalization/Major Diagno stic Procedure:?Denies Past Hospitalization * Family History:?Father: dece ased.?Mother: alive.?1 brother(s) , 4 sister(s) - healthy. 3 daughter(s) - healthy. .? daugher: depression, anxiety, Bipolar Disorder daughter: depression, anxiety, mood disorder mother: depression? maternal uncle: unknown mental health issues? matenral grandmother: Schizophrenia. was hospitalized for mental health issues. 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 * Medications:?TakingAlbuterol Sulfate 108 (90 Base) MCG/ACT Aerosol Powder Breath Activated 1 puff as needed Inhalation every 4 hrs Multivitamin - Tablet 1 tablet Orally Once a day FLUoxetine HCl 20 MG Capsule 1 capsule Orally Once a day Ativan 0.5 MG Tablet 1 tablet Orally twice a day as needed As neededMedication List reviewed and reconciled with the patientTaking Albuterol Sulfate 108 (90 Base) MCG/ACT Aerosol Powder Breath Activated 1 puff as needed Inhalation every 4 hrs Taking Multivitamin - Tablet 1 tablet Orally Once a day Taking FLUoxetine HCl 20 MG Capsule 1 capsule Orally Once a day Taking Ativan 0.5 MG Tablet 1 tablet Orally twice a day as needed As neededMedication List reviewed and reconciled with the patient * Allergies:?Zithromax Franki-Riana [Allergies Verified] Objective: * Vitals:?Initials: carina LMP: . Denies any physical symptoms; unable to obtain vital signs due to telephone encounter. * Examination: ???General Examination: ?PSYCH:?full range of affect/positive mood, tearful at times, , speech clear, no auditory or visual hallucinations, thought content without suicidal ideation or delusions, cognitive function intact, alert, oriented x4, judgement and insight good, thougdenies any current thoughts/plans of suidicial/homicidal ideation, ht process logical, goal directed.? Assessment: * Assessment: 1.?Depression - F32.9 (Prima ry)???2.?Anxiety - F41.9??? Plan: * Treatment: 2.?Anxiety? Continue Ativan Tablet, 0.5 MG, 1 tablet, Orally, twice a day as needed As needed, 10 days, 20, Refills 0.?? Notes: Pt reports that she has only had to take 2 doses since her last visit. Pt denies SI/HI at this time. ?? 3.?Others? Notes: Discussed treatment planDiscussed sleep hygiene and caffeine intakeReturn to clinic 2 weeksEncouraged continued counselingDiscussed treatment plan; patient is agreeable and accepting of treatment plan. Patient denies further questions or concerns at this time. The Patient/Guardian asked appropriate questions, appeared to understand the answers, and decided to accept the treatment and continue being followed.Benzodiazepines are not recommended for long-term use due [...] may be dangerous to self or others. ?? * Procedure Codes:? * Follow Up:?2 Weeks (Reason: Medication management - can be telehealth appt.) * * Sign off status: Completed true * Provider:?PARIS DENNY, MSN, CHIPPER-C, PMHNP-BC Date:?02/08/2024 Generated for Baljeet chang/Marli/Jasmin on:?07/07/2024 01:19 PM SEISMOLOGY TECHNICAL OFFICER History and Physical Notes * HPI (History of Present Illness) Category Sub-Category Detail Notes Category Not es Depression Screening PHQ-9 Little inte rest or pleasure in doing things: Several days Feeling down, depressed, or hopeless: Mo re than half the days Trouble falling or staying asleep, or sl eeping too much: Nearly every day Feeling tired or having little energy: S everal days Poor appetite or overeating: Nearly ever y day Feeling bad about yourself o r that you are a failure, or have let yourself or your family down: Several days Trouble concentrating on thi ngs, such as reading the newspaper or watching television: Not at all Moving or speaking so slowly that other people could have noticed; or the opposite, being so fidgety or restless that you have been moving around a lot more than usual: Several days Thoughts that you would be b heber off or of hurting yourself in some way: Not at all Total Score: 12 Interpretation: Moderate Depression Intervention Depression Screening Findings: P ositive Follow-Up for Depression: No Referral necessary, patient involved in behavioral health treatment . Constitutional Chief Complaint: Follow-up medications HPI: 43-year-old female presents to clinic via telephone to follow-up on medications. Patient was last seen on 01/11/2024 at which time Fluoxetine was refilled and Ativan was continued. PHQ-9 score was 10 at that time. Patient reports Things are getting better with me; I do have some side effects that I am not sure if it is me or the medications. I know I need to keep going to therapy. I think my moods are better; I am a grown woman and I am in a committed relationship but my sex drive has decreased quite a bit. But I think I want to work through therapy with that. I have had much worse side effects with other meds. I also am having to wear a pad all the time and I am having bladder issues. The other thing is my sleep; I am not sleeping that great; I haven't tried anything; I was wondering about trying Melatonin. But my moods are way better. I am having more positive than negatives right now. I am fighting my depression with Ifeoma moving out; my heart is broken. I am weak over this and traumatized over it well. She is being difficult and it is affecting my depression. I am being better about doing things with Trino; I am out in the world moving more and we went to [place] the other day. We planned a trip to go my sister's for [employer]; we bought the plan tickets and will be going to visit her in [place]. Pt reports that she took 2 doses of Ativan since her last appointment Pt reports that her fiance can also see a difference in her since she started taking the medication. PHQ-9 score is 12 today. Pt denies SI/HI at this time . Pt denies need to talk to crisis counselor at this time Per ilpmp, Ativan 0.5mg #20 was last refilled on 11/16/2023 Previous Diagnosis: Depression, anxiety Goals: Finding a new therapist, continue to journal, driving more, becoming more social Coping strategies: Separate self from the stress. Spend time alone, sit outside and smoke, journal, regroup self Social Activities/Hobbies: Spending time with family, went to movies, shopping Drugs/ETOH/nicotine: Marijuana use if issues sleeping Therapy: Reports that she is in-between therapists at this time. Medications effective: Yes Medication Adherence: Taking as prescribed Side effects: Decreased sex drive Past medications: Zoloft, Buspar, Wellbutrin (had seizure like activity after starting medicine), Seroquel Sleep: Reports issues sleeping at times Appetite: Increased Depression: 7 out of 10 Anxiety/Panic attacks: 4 out of 10 Anger/Irritability: Irritability is touch and go Hallucinations/Paranoia: Denies Current Suicidal ideation: Denies Homicidal ideation: Denies Medical concerns: Asthma Hospitalizations/medication changes by other providers: Denies Screening [place] Suicide Severity Rating Scale (LF) Do you want to initiate with: Screener form This session was completed telephonica vera/zoom due to COVID-19 emergency, with client/pare ntal/guardi an consent. ?1. Wish to be : Have yo u wished you were or wished you could go to sleep and not wake up?: No ?2. Suicidal Thoughts: Have you actually had any thoughts of killing yourself?: No ?6. Suicide Behaviour: Have you ever done anything,started to do anything, or prepared to end your life?: No ?Interpretation:: Low Risk Do Not Use CSSRS Interpretation and Follow Up Plan CSSRS Interpretation and Follow Up Plan Moderate or High risk requires selection of a follow up plan: CSSRS No/Low: intervention not needed at this time - Client talked with this provider. Denies plan/intent. Denies needing crisis intervention at this time. Verified with client that they have access to crisis numbers if and as needed. Examination Category Sub-Category Detail Notes Category Not es General Examination PSYCH: full range o f affect/positive mood, tearful at times, , speech clear, no auditory or visual hallucinations, thought content without suicidal ideation or delusions, cognitive function intact, alert, oriented x4, judgement and insight good, thougdenies any current thoughts/plans of suidicial/homicidal ideation, ht process logical, goal directed
--- OUTSIDE RECORDS SUMMARY | 2024-07-07 13:20 | XMS_ITS | Clinical Summary ---
Author Organization [facility] [address] Address [address] [place] [address] Care Team Providers Care Office Coordinator Receptionist Name Role Phone Nia Jacob MD Primary Care Provider Allergies Active Allergy Reactions Criticality Noted Date Comments Azithromycin Hives,Rash High 12/31/2022 Lorazepam Other (See comments) High 04/21/2018 Patient just states that she cannot tolerate this medication - reacted with her buspar. Medications hydrOXYzine (ATARAX) 10 mg tablet Take 1 tablet (10 mg total) by mouth as needed for anxiety Active aspirin-caffeine (Steve Back and Body) 500-32.5 mg tablet Take 2 tablets by mouth 2 (two) times a day Active SALONPAS, LIDOCAINE, TOP Apply topically as needed Active capsaicin-menthol (Salonpas, capsaicin-menthol ,) 0.025-1.25 % adhesive patch,medicated Apply 1 patch topically as needed Active budesonide-formot Raz (SYMBICORT) 160-4.5 mcg/actuation inhalerIndication s:Maintenance Therapy for Asthma Inhale 2 puffs 2 (two) times a day Rinse mouth with water after use. Do not swallow. 3 each 1 3 Active albuterol HFA (PROVENTIL HFA,VENTOLIN HFA,PROAIR HFA) 90 mcg/actuation inhalerIndication s:Moderate persistent asthma without complication INHALE 2 PUFFS BY MOUTH EVERY 4 HOURS NEEDED FOR WHEEZING OR SHORTNESS OF BREATH 1 each 4 Active Active Problems Problem Noted Date Diagnosed Date Moderate persistent asthma without complication 12/31/2022 Rotator cuff syndrome of both shoulders 01/01/20 Impingement of right shoulder 12/31/2022 Impingement of left shoulder 12/31/2022 H/O tobacco use, presenting hazards to health Irritable bowel syndrome with constipation 12/31 Overview (12/31/2022): chronic. Denies history of prior GI eval. Monitor. PTSD (post-traumatic stress disorder) 12/31/2022 Immunizations Name Administration Dates Next Due Hep B Vaccine 02/24/2010,01/07/2010 Influenza, Trivalent, IM (MDV) 07/13/2013,2005 Influenza, Unspecified 04/20/2016 MMR 02/03/2010,03/28/1992 Pneumococcal Polysaccharide PPV23 09/24/2016 Rubella 01/08/2007 Tdap 09/24/2016,01/07/2010 Surgical History Surgery Date Site/Laterality Comments CERVICAL FUSION c5-c6 TUBAL LIGATION Medical History Medical History Date Comments Anxiety Asthma Shoulder pain, bilateral Depression Family History Medical History Relation Name Comments Leukemia Brother as Alcohol abuse Father Cancer Father metastatic at d iagnosis. ? Possibly stomach cancer Cancer Maternal Grandfather unsure of primary Lung cancer Maternal Grandmother former smoker Diabetes Mother Graves' disease Mother Hypertension Mother Relation Name Status Comments Brother Father Maternal Grandfather Maternal Grandmother Mother Social History Tobacco Use Types Packs/Day Years Used Date Smoking Tobacco: Former Cigarettes Q uit: 1993 Smokeless Tobacco: Never Tobacco Cessation:Counseling Given: Yes PHQ-2 Answer Date Recorded PHQ-2 Total Score (If total score is 3 or more points, staff should administer the PHQ-9) 2 12/31/2022 Personal Safety Answer Date Recorded Getting School Help Needed Not on file 06/01 Comments No Sex and Gender Information Value Date Recorded Sex Assigned at Not on file Legal Sex Female 10:40 AM STRADDLE BUG Gender Identity Not on file Sexual Orientation Not on file Obstetrics History Para Term AB IAB SAB Ectopic Multiple Livin g Live Births 6 Date Outcome GA Total Labor Labor/2nd/3rd Weight Sex Type Anes PTL Queta A1 A5 Name Clin Last Filed Vital Signs Vital Sign Reading Time Taken Comments Blood Pressure 112/64 12/31/2022 2:02 PM CDT Pulse 68 12/31/2022 2:02 PM CDT Temperature - - Respiratory Rate - - Oxygen Saturation - - Inhaled Oxygen Concentration - - Weight 49.4 kg (109 lb) 12/31/2022 2:02 PM CDT Height 157.5 cm (5' 2 ) 12/31/2022 2:02 PM CDT Body Mass Index 19.94 12/31/2022 2:02 PM CDT Plan of Treatment Health Maintenance Due Date Last Done Comments Breast Cancer Screening-Mammogram 1980 Cervical Cancer Screening 1980 Hepatitis C Screening 1980 Varicella Vaccines (1 of 2 - 13+ 2-dose series) 1993 Regular Well Visit/Exam 18-64 1998 Pneumococcal vaccine <65 (2 of 2 - PCV) 09/24/2017 09/24/2016 Depression Screening 01/01/2024 12/31/2022 Influenza Vaccine (#1) 2024 6, 07/13/2013, 04/09/2006 DTaP/Tdap/Td Vaccine (3 - Td or Tdap) 09/24/2026 09/24/2016, 01/07/2010 HPV Vaccines Aged Out No longer eligi ble based on patient's age to complete this topic Insurance [employer] [facility] Care Teams Office Coordinator Receptionist Relationship Specialty Start Date End Date Nia Jacob MD PCP - General Family Practice 12/31/22
--- OUTSIDE RECORDS SUMMARY | 2024-07-07 13:20 | XMS_ITS | Clinical Summary ---
Author Organization [facility] [employer] Address [address] [place] [address] Care Team Providers Care Cook Sauce Name Role Phone João Zapata MD Primary Care Provider [phone] Kimberly Sabillon HEAT TREAT TECHNICIAN Unavailable [phone] [facility] [employer],non-owned Affiliates and Associated Physician Practices is amultiple site organization consisting of ambulatory clinics and hospital sitesin [place], [place], [place] and [place]. This disclosure is being madepursuant to the Care Everywhere program and may not contain all information available regarding this patient. Last updated 18.[facility] [employer] Allergies No known active allergies Medications * [...] 12/01/2016 12:38 PM CDT Plan of Treatment Health Maintenance Due Date Last Done Comments MAMMOGRAM 1980 PAP SMEAR 1980 HIV SCREENING 09/23/1995 HEPATITIS C SCREENING 09/18/1998 DTAP/TDAP/TD VACCINES (1 - Tdap) 09/23/1999 HEPATITIS B VACCINE (1 of 3 - 19+ 3-dose series) 09/23/1999 PNEUMOCOCCAL VACCINE (1 of 2 - PCV) 09/23/1999 LIPID TESTING 04/28/2021 04/28/2016 COVID-19 VACCINE (1 - 2023-2 5 season) 2024 INFLUENZA VACCINE (#1) 2024 DEPRESSION SCREENING 06/14/2024 ZOSTER VACCINE (1 of 2) 2030 HIB VACCINE Aged Out No longer eligi ble based on patient's age to complete this topic HPV VACCINE Aged Out No longer eligi ble based on patient's age to complete this topic MENINGOCOCCAL (Group B) VACCINE Aged Out No longer eligible based on patient's age to complete this topic MENINGOCOCCAL VACCINE Aged Out No haley cruzito eligible based on patient's age to complete this topic Procedures Procedure Name Priority Date/Time Associated Diagnosis Comments LIPID PROFILE Routine 04/28/2016 9:01 AM BROKERAGE CLERK Encounter to establish care with new doctor from Last 3 Months or Most Recently Relevant to Health Maintenance Results * (ABNORMAL) LIPID PROFILE (04/28/2016 9:01 AM BROKERAGE CLERK) Cholesterol 111 <200 mg/dL 04/28/2016 10:33 AM [facility] Triglycerides 94 <150 mg/dL 04/28/2016 10:[facility] HDL Cholesterol 29(L) >40 mg/dL 6 10:33 AM [facility] Chol HDL Ratio 3.8 1.0 - 6.0 04/28/2016 10:33 AM [facility] LDL Calculated 63(L) 65 - 130 mg/dL 04/28/2016 10:33 AM [facility] VLDL Calculated 19 10 - 40 mg/dL 04/28/2016 10:33 AM [facility] Blood BLOOD SPECIMEN / Unknown 04/28/2016 9:01 AM [facility] 04/28/2016 9:49 AM [facility] - 04/28/2016 10:33 AM [facility] Lipid Profile Comment: CHOLESTEROL LEVEL..................CLINICAL INTERPRETATION [...] Sabillon NP LAB - CHEMI STRY ORDERABLES [facility] [address] [facility] [place] [address], [facility] from Last 3 Months or Most Recently Relevant to Health Maintenance Additional Health Concerns Infection Onset Date Last Indicated MRSA Comment:+ cx abscess 12/01/16 12/01/2016 12/01/2016 Care Teams Cook Sauce Relationship Specialty Start Date End Date João Zapata MD [address] [place] [address] PCP - General 04/12/19 Kimberly Sabillon NP [facility] [place] [address] Nurse Practitioner 04/12/19
--- OUTSIDE RECORDS SUMMARY | 2024-07-07 13:20 | XMS_ITS | Clinical Summary ---
Author Organization [facility] Sharonda Mehta Address [address] [place] [address] Care Team Providers Care Mica Paster Name Role Phone João Zapata MD Primary Care Provider [phone] Allergies No known active allergies Medications traZODone (DESYREL) 50 mg tablet Take 150 mg by mouth daily at bedtime. Active sertraline (ZOLOFT) 100 mg tablet Take 200 mg by mouth daily. Active busPIRone (BUSPAR) 30 mg Tablet Take 60 mg by mouth 2 times daily. Active traZODone (DESYREL) 50 mg tablet Take 50 mg by mouth daily. Active ropinirole HCl (ROPINIROLE ORAL) Take 50 mg by mouth late in the day. Active ALBUTEROL INHALATION Take by inhalation. Active Active Problems No known active problems Family History Medical History Relation Name Comments Cancer Brother Cancer Father Diabetes Mother Relation Name Status Comments Brother Alive Father Mother Alive Sister 1 Alive Sister 2 Alive Sister 3 Alive Sister 4 Alive Social History Tobacco Use Types Packs/Day Years Used Date Smoking Tobacco: Every Day Cigarettes 0.5 25 Smokeless Tobacco: Never Alcohol Use Standard Drinks/Week Comments Yes 0 (1 standard drink = 0.6 oz pur e alcohol) Comments Unknown Sex and Gender Information Value Date Recorded Sex Assigned at Not on file Legal Sex Female 10:50 AM CDT Gender Identity Not on file Sexual Orientation Not on file Last Filed Vital Signs Vital Sign Reading Time Taken Comments Blood Pressure 100/62 10/20/2019 10:45 AM CDT Pulse 70 10/20/2019 10:45 AM CDT Temperature 36.7 ??C (98 ??F) 10/20/2019 10:45 AM CDT Respiratory Rate - - Oxygen Saturation 96% 10/20/2019 10:45 AM CDT Inhaled Oxygen Concentration - - Weight 52.2 kg (115 lb) 10/20/2019 10:45 AM CDT Height 157.5 cm (5' 2 ) 10/20/2019 10:45 AM CDT Body Mass Index 21.03 10/20/2019 10:45 AM CDT Plan of Treatment Health Maintenance Due Date Last Done Comments DTAP/TDAP/TD VACCINES (1 - Tdap) 09/23/1999 HEPATITIS B VACCINES (1 of 3 - 19+ 3-dose series) 09/23/1999 CERVICAL CANCER SCREENING 2010 BREAST CANCER SCREENING 2020 INFLUENZA VACCINE (#1) 2024 HPV VACCINES Aged Out No longer eligi ble based on patient's age to complete this topic PNEUMOCOCCAL VACCINE 0-64 YEARS Aged Out No longer eligible based on patient's age to complete this topic Care Teams Mica Paster Relationship Specialty Start Date End Date João Zapata MD [address] [place] [address] PCP - General Family Practice 10/12/19
--- OUTSIDE RECORDS SUMMARY | 2024-07-07 13:20 | XMS_ITS ---
Author Organization [facility] Address [address] [place] [address] Care Team Providers Care Client Service Professional Name Role Phone Paris Denny Unavailable [phone] Allergies Allergen (clinical drug ingredient) Drug/Non Drug Allergy documented on EMR Reaction Allergy Type Onset Date Status azithromycin Zithromax Z-Pelon Unknown Drug Allergy Active REASON FOR VISIT 2 Week F/U Medications Medication SIG (Take, Route, Frequency, Duration) Notes Start Date End Date Status Ativan 0.5 MG 1 tablet Orally twice a day as needed for 10 days As needed Active Albuterol Sulfate 108 (90 Base) MCG/ACT 1 puff as needed Inhalation every 4 hrs Active FLUoxetine HCl 10 MG 1 capsule Orally On ce a day for 30 days Active Multivitamin - 1 tablet Orally Once a day Active Encounters Encounter Location Date Provider Diagnosis [address] [address] 02/22/2024 Paris Denny Depression F32.9 and Anxiety F41.9 Assessments Encounter Date Diagnosis (ICD Code) Assessment Notes Treatment Notes Treatment Clinical Notes Section Notes 02/22/2024 Depression (ICD-10 - F32.9) Pt reports that she has noticed some increase in OCD symptoms since decreasing Fluoxetine dose but does not want to increase dose at this time. Pt denies SI/HI at this time. Pt continues to look for a therapist 02/22/2024 Anxiety (ICD-10 - F41.9) Pt reports that she has only had to take 2 doses over the past month. Pt denies SI/HI at this time. 02/22/2024 Other Discussed treat ment planDiscussed sleep [...] May also contact the 24-hour crisis hotline ([facility]), refer to the closest emergency room [...] Name Sig Start Date Stop Date Notes Ativan 0.5 MG 1 tablet Orally twic e a day as needed for 10 days FLUoxetine HCl 10 MG 1 capsule Orally On ce a day for 30 days Treatment Notes Assessment Notes Depression Pt reports that she has noticed some increase in OCD symptoms since decreasing Fluoxetine dose but does not want to increase dose at this time. Pt denies SI/HI at this time. Pt continues to look for a therapist Anxiety Pt reports that she has only had to take 2 doses over the past month. Pt denies SI/HI at this time. Other [...] Notes * Cely TATUMDOB:1980 (43 yo F)Acc No.[id number]:02/22/2024 Patient:?Cely TATUM Provider:?PARIS DENNY, MSN, MUSICAL INSTRUMENT MECHANIC-C, PMHNP -BC :1980???Age:43 Y???Sex:Female D ate:02/22/2024 Address:[address] [place], [place] [id number] Subjective: * Chief Complaints: * ???2 Week F/U * HPI: ???Screening:?[place] Suicide Severity Rating Scale (LF)?Do you want to initiate with?Screener form,?1. Wish to be : Have you wished you were or wished you could go to sleep and not wake up??No,?2. Suicidal Thoughts: Have you actually had any thoughts of killing yourself??No,?6. Suicide Behaviour: Have you ever done anything,started to do anything, or prepared to end your life??No,?Interpretation:?Low Risk.?CSSRS Interpretation and Follow Up Plan:?CSSRS Interpretation and Follow Up Plan. ?CSSRS Interpretation and Follow Up Plan?Moderate or High risk requires selection of a follow up plan?CSSRS No/Low: intervention not needed at this time.?Depression Screening:?PHQ-9?Little interest or pleasure in doing things?Several days,?Feeling down, depressed, or hopeless?Several days,?Trouble falling or staying asleep, or sleeping too much?Nearly every day,?Feeling tired or having little energy More than half the days,?Poor appetite or overeating?Several days,?Feeling bad about yourself or that you are a failure, or have let yourself or your family down?Not at all, Trouble concentrating on things, such as reading the newspaper or watching television?Several days,?Moving or speaking so slowly that other people could have noticed; or the opposite, being so fidgety or restless that you have been moving around a lot more than usual?Several days,?Thoughts that you would be better off or of hurting yourself in some way?Not at all, Total Score?10,?Interpretation?Moderate Depression.?Intervention?Depression Screening Findings?Positive,?Follow-Up for Depression?No Referral necessary, patient involved in behavioral health treatment ..?Constitutional:? Chief Complaint: Follow-up medications? HPI: 43-year-old female presents to clinic via telephone to follow-up on medications. Patient was last seen on 02/08/2024? at which time Fluoxetine was decreased and Ativan was continued.? PHQ-9 score was 12 at that time. Patient reports ok so I have to be at work at 11 today. I know we bumped the medication down; my OCD is my coping mechanism but I feel like my OCD is through the roof wince we bumped down the dose but I am ok with it because I am getting a lot of things down. But I am tired from doing so many things. I did only decrease the dose 1 week ago. I don't want to increase the dose up again. I am having some issues with my blood sugar and I am going to go see my PCP. I don't think we need to change anything med sparks. I am eating more which is good. My moods are good; I don't think my? moods have declined ?? Pt reports that she took 2 doses of Ativan in the past month PHQ-9 score is 10 today. Pt denies SI/HI at this time [...] time with family, went to movies, shopping with dora Lester Drugs/ETOH/nicotine: Marijuana use if issues sleeping? Therapy: Was seeing a therapist through work; continues to try to find a new therapist? Medications effective: Yes Medication Adherence: Taking as prescribed? Side effects: DEnies? Past medications: Zoloft, Buspar, Wellbutrin (had seizure like activity after starting medicine), Seroquel? Sleep: Reports issues with staying asleep? Appetite: Eating better? Depression: 4 out of 10? Anxiety/Panic attacks: 6 out of 10? Anger/Irritability: Irritability at times Hallucinations/Paranoia: Denies? Current Suicidal ideation: Denies? Homicidal ideation: Denies? Medical concerns: Asthma, bladder issues? Hospitalizations/medication changes by other providers: Denies. * [...] Frequency:?Never.?Illicit Substance Usage?Illicit Substance Usage:?No.?Employment Status?Employment Status:?Employed [employer].? * Medications:?TakingAlbuterol Sulfate 108 (90 Base) MCG/ACT Aerosol Powder Breath Activated 1 puff as needed Inhalation every 4 hrs Multivitamin - Tablet 1 tablet Orally Once a day FLUoxetine HCl 10 MG Capsule 1 capsule Orally Once a day Ativan 0.5 MG Tablet 1 tablet Orally twice a day as needed As neededMedication List reviewed and reconciled with the patientTaking Albuterol Sulfate 108 (90 Base) MCG/ACT Aerosol Powder Breath Activated 1 puff as needed Inhalation every 4 hrs Taking Multivitamin - Tablet 1 tablet Orally Once a day Taking FLUoxetine HCl 10 MG Capsule 1 capsule Orally Once a day Taking Ativan 0.5 MG Tablet 1 tablet Orally twice a day as needed As neededMedication List reviewed and reconciled with the patient * Allergies:?Zithromax Franki-Riana [Allergies Verified] Objective: * Vitals:?Initials: jk, LMP: . Denies any physical symptoms; unable [...] month. Pt denies SI/HI at this time. ?? [...] May also contact the 24-hour crisis hotline ([facility]), refer to the closest emergency room [...] status: Completed true * Provider:?PARIS DENNY, MSN, MUSICAL INSTRUMENT MECHANIC-C, PMHNP-BC Date:?02/22/2024 Generated for Baljeet chang/Marli/Jasmin on:?07/07/2024 01:19 PM [employer]ACHINE [employer] History and Physical Notes * HPI (History of Present Illness) Category Sub-Category Detail Notes Category Not es Depression Screening PHQ-9 Little inte rest or pleasure in doing things: Several days Feeling down, depressed, or hopeless: Se veral days Trouble falling or staying asleep, or sl eeping too much: Nearly every day Feeling tired or having little energy: M ore than half the days Poor appetite or overeating: Several day s Feeling bad about yourself o r that you are a failure, or have let yourself or your family down: Not at all Trouble concentrating on thi ngs, such as reading the newspaper or watching television: Several days Moving or speaking so slowly that other people could have noticed; or the opposite, being so fidgety or restless that you have been moving around a lot more than usual: Several days Thoughts that you would be b heber off or of hurting yourself in some way: Not at all Total Score: 10 Interpretation: Moderate Depression Intervention Depression Screening Findings: P ositive Follow-Up for Depression: No Referral necessary, patient involved in behavioral health treatment . Constitutional Chief Complaint: Follow-up medications HPI: 43-year-old female presents to clinic via telephone to follow-up on medications. Patient was last seen on 02/08/2024 at which time Fluoxetine was decreased and Ativan was continued. PHQ-9 score was 12 at that time. Patient reports ok so I have to be at work at 11 today. I know we bumped the medication down; my OCD is my coping mechanism but I feel like my OCD is through the roof wince we bumped down the dose but I am ok with it because I am getting a lot of things down. But I am tired from doing so many things. I did only decrease the dose 1 week ago. I don't want to increase the dose up again. I am having some issues with my blood sugar and I am going to go see my PCP. I don't think we need to change anything med sparks. I am eating more which is good. My moods are good; I don't think my moods have declined Pt reports that she took 2 doses of Ativan in the past month PHQ-9 score is 10 today. Pt denies SI/HI at this time [...] time with family, went to movies, shopping with daughter Tayler Drugs/ETOH/nicotine: Marijuana use if issues sleeping Therapy: Was seeing a therapist through work; continues to try to find a new therapist Medications effective: Yes Medication Adherence: Taking as prescribed Side effects: DEnies Past medications: Zoloft, Buspar, Wellbutrin (had seizure like activity after starting medicine), Seroquel Sleep: Reports issues with staying asleep Appetite: Eating better Depression: 4 out of 10 Anxiety/Panic attacks: 6 out of 10 Anger/Irritability: Irritability at times Hallucinations/Paranoia: Denies Current Suicidal ideation: Denies Homicidal ideation: Denies Medical concerns: Asthma, bladder issues Hospitalizations/medication changes by other providers: Denies Screening [place] Suicide Severity Rating Scale (LF) Do you want to initiate with: Screener form ?1. Wish to be : Have yo [...] No/Low: intervention not needed at this time Examination Category Sub-Category Detail Notes Category Not [...]
--- OUTSIDE RECORDS SUMMARY | 2024-07-07 13:20 | XMS_ITS ---
Author Organization [facility] Address [address] [place] [address] Care Team Providers Care Loading Shovel Oiler Name Role Phone Paris Denny Unavailable [phone] Allergies Allergen (clinical drug ingredient) Drug/Non Drug [...] for 10 days As needed 03/07/2024 Active Encounters Encounter Location Date Provider Diagnosis [address] [place] [address] 03/07/2024 Paris Denny Depression F32.9 and Anxiety F41.9 Assessments Encounter Date Diagnosis (ICD Code) Assessment Notes Treatment Notes Treatment Clinical Notes Section Notes 03/07/2024 Depression (ICD-10 - F32.9) Pt reports that her moods are under control at this time and she is doing well on medication and denies side effects at this time. Pt denies SI/HI at this time. Pt continues to look for a therapist 03/07/2024 Anxiety (ICD-10 - F41.9) Pt reports that she does not have to take medication often. Pt denies SI/HI at this time. COntinues to look for a therapist. Pt denies SI/HI 03/07/2024 Other Discussed treatment planDiscussed sleep hygiene [...] aware that this provider will be leaving [facility] as of 03/08/2024 and she will be transitioned to a new provider for her next appointment. Plan Of Treatment Medication Medication Name Sig Start Date Stop Date Notes FLUoxetine HCl 10 MG 1 capsule Orally On ce a day for 30 days Ativan 0.5 MG 1 tablet Orally twic e a day as needed for 10 days 03/07/2024 Treatment Notes Assessment Notes Depression Pt reports that her moods are under control at this time and she is doing well on medication and denies side effects at this time. Pt denies SI/HI at this time. Pt continues to look for a therapist Anxiety Pt reports that she does not have to take medication often. Pt denies SI/HI at this time. COntinues to look for a therapist. Pt denies SI/HI Other Discussed treatment planDiscussed sleep hygiene and [...] aware that this provider will be leaving [facility] as of 03/08/2024 and she will be transitioned to a new provider for her next appointment. Next Appt Details Follow Up: 4 Weeks, Reason: Medication management - can be telehealth appt. Progress Notes * Cely TATUMDOB:1980 (43 yo F)Acc No.[id number]:03/07/2024 Patient:?Cely TATUM Provider:?PARIS DENNY, MSN, EQUIPMENT OILER-C, PMHNP -BC :1980???Age:43 Y???Sex:Female D ate:03/07/2024 Address:[address] [place], [place] [id number] Subjective: * Chief Complaints: * ???2 Week F/U * HPI: ???CSSRS Interpretation and Follow Up Plan:?CSSRS Interpretation [...] every day,?Feeling tired or having little energy Several days,?Poor appetite or overeating?Several days,?Feeling bad about yourself or that you are a failure, or have let yourself or your family down?Not at all,?Trouble concentrating on things, such as reading the newspaper or watching television?Several days,?Moving or speaking so slowly that other people could have noticed; or the opposite, being so fidgety or restless that you have been moving around a lot more than usual?Several days,?Thoughts that you would be better off or of hurting yourself in some way?Not at all,?Total Score?9,?Interpretation?Mild Depression.?Intervention?Depression Screening Findings?Positive,?Follow-Up for Depression?No Referral necessary, patient involved in behavioral health treatment ..?Screening:?[place] Suicide Severity Rating Scale (LF)?Do you want to initiate with?Screener form,?1. Wish to be : Have you wished you were or wished you could go to sleep and not wake up??No,?2. Suicidal Thoughts: Have you actually had any thoughts of killing yourself??No,?6. Suicide Behaviour: Have you ever done anything,started to do anything, or prepared to end your life??No,?Interpretation:?Low Risk.?Constitutional:? Chief Complaint: Follow-up medications? HPI: 43-year-old female presents to clinic via telephone to follow-up on medications. Patient was last seen on 02/22/2024 at which time Fluoxetine and Ativan were continued. PHQ-9 score was 10 at that time. Patient reports I had to work late last night. Everything things to be balancing out again since we backed down on the Fluoxetine. I also think my OCD symptoms have leveled out. Work is still crazy as normal; It gets better and then worse. Home life is overall good; I did see Ifeoma yesterday and she did give me a hug yesterday. Trino and I are doing great. I am driving more and it is going better; I am hoping to get more comfortable with driving and being in a car in general. Pt reports I am feeling much more stable than I was before; I am doing good on the medication. ?? 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 PHQ-9 score is 10 today. Pt denies [...] family, went to movies, shopping with daughter Tayler, spending time with Trino? Drugs/ETOH/nicotine: Marijuana use if issues sleeping? Therapy: Was seeing a therapist through work; continues to try to find a new therapist? Medications effective: Yes Medication Adherence: Taking as prescribed? Side effects: Denies? Past medications: Zoloft, Buspar, Wellbutrin (had seizure like activity after starting medicine), Seroquel? Sleep: Reports issues staying asleep? Appetite: it is better than it was ? Depression: 3 out of 10? Anxiety/Panic attacks: 3-4 out of 10? Anger/Irritability: Denies? Hallucinations/Paranoia: Denies? Current Suicidal ideation: Denies? 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 * Medications:?TakingAlbuterol Sulfate 108 (90 Base) MCG/ACT Aerosol Powder Breath Activated 1 puff as needed Inhalation every 4 hrs Multivitamin - Tablet 1 tablet Orally Once a day Ativan 0.5 MG Tablet 1 tablet Orally twice a day as needed As neededFLUoxetine HCl 10 MG Capsule 1 capsule Orally Once a day Medication List reviewed and reconciled with the patientTaking Albuterol Sulfate 108 (90 Base) MCG/ACT Aerosol Powder Breath Activated 1 puff as needed Inhalation every 4 hrs Taking Multivitamin - Tablet 1 tablet Orally Once a day Taking Ativan 0.5 MG Tablet 1 tablet Orally twice a day as needed As neededTaking FLUoxetine HCl 10 MG Capsule 1 capsule Orally Once a day Medication List reviewed and reconciled with the patient * Allergies:?Oscar Parrish [Allergies Verified] Objective: * Vitals:?Initials: carina LMP: [...] ry)???2.?Anxiety - F41.9??? Plan: * Treatment: 2.?Anxiety? Refill Ativan Tablet, 0.5 MG, 1 tablet, Orally, twice a day as needed As needed, 10 days, 20, Refills 0.?? Notes: Pt reports that she does not have to take medication often. Pt denies SI/HI at this time. COntinues to look for a therapist. Pt denies SI/HI?? 3.?Others? Notes: Discussed treatment planDiscussed sleep hygiene [...] [facility] she will be transitioned to a new provider for her next appointment. ?? * Procedure Codes:? * Follow Up:?4 Weeks (Reason: Medication management - can be telehealth appt.) * * Sign off status: Completed true * Provider:?PARIS DENNY, MSN, EQUIPMENT OILER-C, PMHNP-BC Date:?03/07/2024 Generated for Baljeet chang/Marli/Jasmin on:?07/07/2024 01:19 PM CAR SCRUBBER History and Physical Notes * HPI (History [...] S everal days Poor appetite or overeating: Several day [...] some way: Not at all Total Score: 9 Interpretation: Mild Depression Intervention Depression Screening Findings: P ositive Follow-Up for Depression: No Referral necessary, patient involved in behavioral health treatment . Constitutional Chief Complaint: Follow-up medications HPI: 43-year-old female presents to clinic via telephone to follow-up on medications. Patient was last seen on 02/22/2024 at which time Fluoxetine and Ativan were continued. PHQ-9 score was 10 at that time. Patient reports I had to work late last night. Everything things to be balancing out again since we backed down on the Fluoxetine. I also think my OCD symptoms have leveled out. Work is still crazy as normal; It gets better and then worse. Home life is overall good; I did see Ifeoma yesterday and she did give me a hug yesterday. Trino and I are doing great. I am driving more and it is going better; I am hoping to get more comfortable with driving and being in a car in general. Pt reports I am feeling much more stable than I was before; I am doing good on the medication. 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 PHQ-9 score is 10 today. Pt denies [...] family, went to movies, shopping with daughter Tayler, spending time with Trino Drugs/ETOH/nicotine: Marijuana use if issues sleeping Therapy: Was seeing a therapist through work; continues to try to find a new therapist Medications effective: Yes Medication Adherence: Taking as prescribed Side effects: Denies Past medications: Zoloft, Buspar, Wellbutrin (had seizure like activity after starting medicine), Seroquel Sleep: Reports issues staying asleep Appetite: it is better than it was Depression: 3 out of 10 Anxiety/Panic attacks: 3-4 out of 10 Anger/Irritability: Denies Hallucinations/Paranoia: Denies Current Suicidal ideation: Denies Homicidal ideation: Denies Medical concerns: Asthma, bladder issues Hospitalizations/medication changes by other providers: Denies Screening [place] Suicide Severity Rating Scale (LF) Do you [...]
--- OUTSIDE RECORDS SUMMARY | 2024-07-07 13:21 | XMS_ITS | Referral Summary ---
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
[2024-07-07 13:30] VITALS: BP 145/79; PULSE 69; RESP 16; O2SAT 99
--- NOTE | 2024-07-07 13:54 | ECG_ITS ---
Test Date: 2024-07-07 14:14:11 Measurements Intervals [place] Rate: 61 P: 42 KS: 150 QRS: 89 QRSD: 90 T: 73 QT: 418 QTc: 423 Interpretive Statements SINUS RHYTHM No previous ECG available for comparison Electronically Signed On 07-07-2024 23:54:14 GRANITE CHIP TERRAZZO FINISHER by Bhumi Decker M.D.
--- NOTE | 2024-07-07 13:57 | ED_ITS ---
HPI - Chest Pain General Chief Complaint: Anxiety Stated Complaint: anxiety Time Seen by Provider: 07/07/24 13:16 Source: patient and family Mode of arrival: ambulatory Limitations: no limitations History of Present Illness HPI narrative: patient is 43-year-old female with some left-sided chest pain that has been coming and going for the past month. She had more chest pain today and came to the ER for further evaluation. She has chronic and moderate to severe anxiety issues and panic attacks. She is on Ativan but cannot get it refilled as the psychiatrist can no longer write at her new practice. She is having anxiety about Ativan. She gets panic attacks often and today did not feel like her normal panic attacks and was a different sensation. She has associated dizziness and shortness of breath. She has a baseline of asthma. MD complaint: chest pain Pertinent past history: other ( Anxiety) Onset (ago): month(s) (1) Timing of current episode: episodic, daily and increasing Prior episodes: Yes Onset: during rest and during exertion Pain location: left chest Pain radiation: none Severity: mild Pain scale (0-10): 3 Quality: sharp Relieving factors: nothing Exacerbating factors: movement Context: new medications ( patient has been on new psychiatric medications however she stopped 2 days ago due to side effects) and non compliance with medication Associated symptoms: dyspnea Treatment prior to arrival: none ( she did not take her Ativan today as she only has 2 pills left to use) Risk Factors Coronary artery disease risk factors: none Thoracic aortic dissection risk factors: none Related Data On Oral Contraceptives: No Home Medications ?Medication ?Instructions ?Recorded ?Confirmed ?Last Taken ?Type buspirone 30 mg tablet mg BID 12/23/19 Unknown History hydroxyzine HCl 25 mg tablet 50 PO 12/23/19 Unknown History ropinirole 0.25 mg tablet 0.5 mg HS 12/23/19 12/23/19 Unknown History sertraline 100 mg tablet 200 mg PO 12/23/19 Unknown History trazodone 100 mg tablet 150 mg HS 12/23/19 12/23/19 Unknown History albuterol sulfate 2.5 mg/3 mL 07/02/20 Unknown History (0.083 %) solution for nebulization albuterol sulfate 90 mcg/actuation inhalation 07/02/20 Unknown History aerosol inhaler Allergies Allergy/AdvReac Type Severity Reaction Status Date / Time No Known Allergies Allergy Verified 07/07/24 13:23 Review of Systems 2 Review of Systems: All systems reviewed & are unremarkable except as noted in HPI and below Constitutional: Constitutional: Reports no additional constitutional complaints Eyes: Eyes: Reports no additional eye complaints ENT: Reports system reviewed and no additional complaints, except as documented Cardiovascular: Cardiovascular: Reports no additional cardiovascular complaints Respiratory: Respiratory: Reports no additional respiratory complaints Gastrointestinal: Gastrointestinal: Reports no additional gastrointestinal complaints Genitourinary: Genitourinary: Reports no additional female genitourinary complaints Musculoskeletal: Musculoskeletal: Reports no additional musculoskeletal complaints Integumentary/Breasts: Skin/Breast: Reports system reviewed and no additional complaints, except as docu Neurologic: Reports system reviewed and no additional complaints, except as documented Psychiatric: Psychiatric: Reports no additional psychiatric complaints Endocrine: Endocrine: Reports no additional endocrine complaints Hematologic/Lymphatic: Hematologic/Lymphatic: Reports no additional hematologic/lymphatic complaints Allergic/Immunologic: Allergic/Immunologic: Reports no additional allergic/immunologic complaints PMFSH Past Medical History Medical History Anxiety Depression Seizure Surgical History Surgical History History of cervical spinal arthrodesis Social History Social History Smoking status: Current every day smoker Alcohol intake: unknown Substance use: current Substance use type: marijuana and amphetamines Gender identity (if verbalized by the patient): Female Exam 2 Const: General: healthy appearing Nutritional Appearance: well nourished Orientation/consciousness: patient oriented x3 Limitations: no limitations HENMT: Head: normal to inspection Ears: external ears normal F deshaun/Nose/Sinus: Normal external nose present Eyes: Conjunctivae: conjunctivae normal Pupils: Equal, round and reactive pupils present EOM: EOMs intact bilaterally Neck: Neck: normal visual inspection Chest: Chest palpation & inspection: normal inspection of the chest Resp: Effort & Inspection: normal respiratory effort and not labored A uscultation: clear to auscultation bilaterally and no crackles Cardio: Rate: regular rate Rhythm: regular rhythm Heart sounds: no murmurs GI: Inspection: non-distended Auscultation: normal bowel sounds : General: Yes bladder normal to palpation Back/Spine/Pelvis: Back: no CVA tenderness Skin: General skin exam: normal color Rashes: no rashes Wounds: no wounds Neuro: General: patient oriented x3 and moves all extremities Cranial nerves: Yes Nystagmus not present Speech: normal speech Gait exam (Neuro): Normal gait present Extrem: General: normal to inspection Psych: Mental Status: mental status grossly normal Affect: normal affect Attitude: cooperative Course Vital Signs Vital signs: Vital Signs Temperature 36.7 C 07/07/24 13:13 Pulse Rate 63 07/07/24 13:13 Respiratory Rate 16 07/07/24 13:13 Blood Pressure 131/88 07/07/24 13:13 Pulse Oximetry 99 07/07/24 13:13 Oxygen Delivery Room Air 07/07/24 13:13 Temperature 36.7 C 07/07/24 13:13 Pulse Rate 63 07/07/24 13:13 Respiratory Rate 16 07/07/24 13:13 Blood Pressure 131/88 07/07/24 13:13 Pulse Oximetry 99 07/07/24 13:13 Oxygen Delivery Room Air 07/07/24 13:13 MDM - Chest Pain MDM Narrative Medical decision making narrative: patient is a 43-year-old female with panic and anxiety having some left-sided chest pain for the past month. Will do a cardiac workup this time. Will give her some Ativan. Patient had resolution of her chest pain and impending doom sensation after the Ativan was given IV. She feels back to baseline and normal. Workup was negative. She can have outpatient further cardiac workup as needed. Lab Data Attestation: I reviewed the patient's lab results. Lab results narrative: Likely leukocytosis and marginization due to stress and anxiety. 07/07/24 14:02 07/07/24 14:02 Labs: Lab Results 07/07/24 Range/Units 14:02 WBC 14.2 H (4.8-10.8) K/mm3 RBC 4.33 (4.20-5.40) M/mm3 Hgb 14.0 (12.0-15.0) g/dL Hct 41.2 (35.0-49.0) % MCV 95.2 (78.0-102.0) fL MCH 32.3 H (27.0-31.0) pg MCHC 34.0 (32-36) g/dL RDW 12.0 (11.6-14.4) % Plt Count 364 (150-420) K/mm3 MPV 9.4 (9.2-11.8) fl Immature Gran % (Auto) 0.3 H (0.0-0.0) % Neut % (Auto) 71.2 H (50.0-70.0) % Lymph % (Auto) 22.6 (18.0-42.0) % Ashley % (Auto) 5.0 (2.0-11.0) % Eos % (Auto) 0.6 L (1.0-6.0) % Baso % (Auto) 0.3 (0.0-1.0) % Lymph # (Auto) 3.21 (1.10-4.50) K/mm3 Ashley # (Auto) 0.71 (0.10-0.90) K/mm3 Eos # (Auto) 0.09 (0.02-0.50) K/mm3 Baso # (Auto) 0.04 (0.00-0.10) K/mm3 Abs Immat Gran (auto) 0.04 H (0.00-0.00) K/mm3 Absolute Neuts (auto) 10.12 H (1.70-7.20) K/mm3 Absolute Nucleated RBC 0.00 (0.00-0.00) K/mm3 Nucleated RBC % 0.0 (0-0.0) % D-Dimer 0.19 (0.19-0.50) mg/L Sodium 141 (136-145) mmol/L Potassium 3.4 L (3.5-5.1) mmol/L Chloride 106 (98-108) mmol/L Carbon Dioxide 24 (21-32) mmol/L Anion Gap 11 (4-12) mmol/L BUN 8 (7-18) mg/dL Creatinine 0.75 (0.55-1.02) mg/dL Estim Creat Clear Calc 63 ml/min Estimated GFR > 60 (59 - ) Glucose 90 (70-99) mg/dL Calculated Osmolality 290 (285-295) mOsm/kg Calcium 9.2 (8.5-10.1) mg/dL Total Bilirubin 0.3 (0.00-1.00) mg/dL AST 14 L (15-37) U/L ALT 26 (14-59) U/L Alkaline Phosphatase 63 (46-116) U/L Troponin I < 4.0 (0.00-60.4) ng/L NT-Pro-B Natriuret Pep 53 (0-125) pg/mL Total Protein 7.1 (6.4-8.2) g/dL Albumin 4.1 (3.4-5.0) g/dL Lipase 40 (16-77) U/L TSH 1.06 (0.36-3.74) uIU/mL Urine Color Light yellow (Yellow) Urine Appearance Clear (Clear) Urine pH 6.5 (5.0-8.0) Ur Specific [place] <= 1.005 L (1.010-1.020) Urine Protein Negative (Negative) Urine Glucose (UA) Negative (Negative) Urine Ketones Negative (Negative) Ur Blood (Man) Trace-intact H (Negative) Urine Nitrate Negative (Negative) Urine Bilirubin Negative (Negative) Urine Urobilinogen 0.2 (0.2-1.0) mg/dL Leukocyte Esterase Rfl Negative (Negative) ANA/UL Urine Test Negative Urine Opiates Screen Negative (Negative) Urine Methadone Screen Negative (Negative) Ur Barbiturates Screen Negative (Negative) Ur Phencyclidine Scrn Negative (Negative) Ur Amphetamine Screen Negative (Negative) U Benzodiazepines Scrn Negative (Negative) Urine Cocaine Screen Negative (Negative) U Cannabinoids Screen Positive A (Negative) Imaging Data Attestation: I personally reviewed and interpreted this imaging study as follows: Radiologist's impression: Chest x-ray is negative for acute process ECG Data EKG #1: Attestation: I personally reviewed and interpreted this ECG as follows: ECG completion date: 07/07/24 ECG completion time: 14:37 EKG Interpretation: normal rate, sinus rhythm, no ectopy, no ST changes, normal QRS, normal QT, NL axis and no acute changes Discharge Plan Discharge Clinical Impression: Acute anxiety, Panic disorder Patient Disposition: Home, Self-Care Condition: Improved Instructions: Anxiety (ED) Patient Language: Spanish Prescriptions: New lorazepam [Ativan] 0.5 mg tablet 0.5 mg PO BID PRN (Reason: anxiety) Qty: 20 0RF No Action sertraline 100 mg tablet 200 mg PO trazodone 100 mg tablet 150 mg HS ropinirole 0.25 mg tablet 0.5 mg HS buspirone 30 mg tablet BID hydroxyzine HCl 25 mg tablet 50 PO dexamethasone [Decadron] 6 mg tablet 6 mg PO DAILY Qty: 5 0RF promethazine 25 mg tablet 25 mg PO QID PRN (Reason: nausea and vomiting) Qty: 5 0RF albuterol sulfate 2.5 mg /3 mL (0.083 %) solution for nebulization albuterol sulfate 90 mcg/actuation HFA aerosol inhaler INHALATION cyclobenzaprine 10 mg tablet 10 mg PO TID PRN (Reason: muscle spasm) Qty: 14 0RF Follow-up/Referrals: Jordan,Doris Dahl MD [Primary Care Provider] - Time of Disposition: 15:02
[2024-07-07 14:00] VITALS: BP 138/90; PULSE 68; RESP 16; O2SAT 99
[2024-07-07 14:09] LABS: Basophils Absolute Auto 0.04 K/mm3 (0.00-0.10); Basophils Percent Auto 0.3 % (0.0-1.0); Eosinophils Absolute Auto 0.09 K/mm3 (0.02-0.50); Eosinophils Percent Auto 0.6 % (1.0-6.0); Hematocrit 41.2 % (35.0-49.0); Immature Granulocyte Absolute 0.04 K/mm3 (0.00-0.00); Immature Granulocyte Percent A 0.3 % (0.0-0.0); Lymphocytes Absolute Auto 3.21 K/mm3 (1.10-4.50); Lymphocytes Percent Auto 22.6 % (18.0-42.0); Mean Corpuscular Hemoglobin 32.3 pg (27.0-31.0); Mean Corpuscular Volume 95.2 fL (78.0-102.0); Mean Platelet Volume 9.4 fl (9.2-11.8); Monocytes Absolute Auto 0.71 K/mm3 (0.10-0.90); Neutrophils Absolute Auto 10.12 K/mm3 (1.70-7.20); Neutrophils Percent Auto 71.2 % (50.0-70.0); Platelet Count Result 364 K/mm3 (150-420); Red Blood Count 4.33 M/mm3 (4.20-5.40); White Blood Count 14.2 K/mm3 (4.8-10.8)
[2024-07-07 14:10] LABS: Add Urine Microscopic? NO; Appearance Urine Clear (Clear); Bilirubin Urine Negative (Negative); Blood Urine Trace-intact (Negative); Color Urine Light Yellow (Yellow); Glucose Urine UA Negative (Negative); Ketones Urine Negative (Negative); Leukocyte Esterase Ur Negative LEU/UL (Negative); Nitrate Urine Negative (Negative); Protein Urine Negative (Negative); Specific Grav Ur <= 1.005 (1.010-1.020); Urobilinogen Urine 0.2 mg/dL (0.2-1.0); pH Urine 6.5 (5.0-8.0)
[2024-07-07] MEDS: LORazepam INJ (*CRX) 2 MG/ML VIAL 0.5 MG IV PUSH (14:10)
[2024-07-07 14:14] LABS: Pregnancy On Board Control Positive; Urine Pregnancy Test Negative
[2024-07-07 14:20] LABS: Amphetamine Screen Urine Negative (Negative); Barbiturate Screen Urine Negative (Negative); Benzodiazepines Screen Urine Negative (Negative); Cannabinoid Screen Urine Positive (Negative); Cocaine Screen Urine Negative (Negative); Methadone Screen Urine Negative (Negative); Opiate Screen Urine Negative (Negative); Phencyclidine Screen Urine Negative (Negative)
[2024-07-07 14:23] LABS: D Dimer 0.19 mg/L (0.19-0.50)
[2024-07-07 14:30] VITALS: BP 121/76; PULSE 67; RESP 16; O2SAT 94
[2024-07-07 14:34] LABS: Alanine Aminotransferase 26 U/L (14-59); Albumin Level 4.1 g/dL (3.4-5.0); Alkaline Phosphatase 63 U/L (46-116); Anion Gap 11 mmol/L (4-12); Aspartate Amino Transferase 14 U/L (15-37); Bilirubin,Total 0.3 mg/dL (0.00-1.00); Blood Urea Nitrogen 8 mg/dL (7-18); Calcium 9.2 mg/dL (8.5-10.1); Carbon Dioxide 24 mmol/L (21-32); Chloride 106 mmol/L (98-108); Estimated CRCL calculation 63 ml/min; Estimated Glomerular Filt Rate > 60; Glucose 90 mg/dL (70-99); NT Pro B Type Natriuretic Pept 53 pg/mL (0-125); Osmolality Calculated 290 mOsm/kg (285-295); Potassium 3.4 mmol/L (3.5-5.1); Sodium 141 mmol/L (136-145); Total Protein 7.1 g/dL (6.4-8.2)
[2024-07-07 14:37] LABS: Lipase 40 U/L (16-77); Thyroid Stimulating Hormone 1.06 uIU/mL (0.36-3.74); Troponin I < 4.0 ng/L (0.00-60.4)
[2024-07-07 15:00] VITALS: BP 119/62; PULSE 71; RESP 17; O2SAT 97
[2024-07-07] MEDS: POTASSIUM CHLORIDE 20 MEQ ER TABLET PO (15:01)
[2024-07-07 15:08] VITALS: BP 119/62; PULSE 71; RESP 17; TEMP 36.9; O2SAT 97
== END 2024-07-07 15:08 | disposition home or self-care (01) ==
PROVIDERS: Emergency Provider Emergency Medicine; PCP Family Medicine
DX: F41.9 Anxiety disorder, unspecified (principal); F41.0 Panic disorder [episodic paroxysmal anxiety]; F17.200 Nicotine dependence, unspecified, uncomplicated; Z79.899 Other long term (current) drug therapy
CPT/HCPCS: 36415; 71046; 80053; 80307; 81003; 81025; 83690; 83880; 84443; 84484; 85025; 85380; 93005; 96374; 99284; A9270; J2060

== ENCOUNTER 2024-08-08 14:11 | Outpatient (CLI) | payer OTHER, SELFPAY ==
--- NOTE | ~2024-08-08 | XR_ITS ---
Cervical Spine: AP, lateral, open-mouth views Clinical History: Pain Findings: There is straightening of the normal cervical lordosis. There is anterior and interbody fus ion from C5 to C6. There is advanced degenerative disc narrowing at C6-C7. There is mild degenerative disc narrowing at C4-C5. There is minimal grade 1 anterolisthesis of C3 over C4. There is mild facet arthropathy in the cervical spine. Pre-vertebral soft tissues are unremarkable. Impression: Anterior and interbody fusion from C5 to C6. Moderate degenerative change, as above. Reviewed, dictated and finalized at location M. TENDER Impression: Anterior and interbody fusion from C5 to C6. Moderate degenerative change, as above.
--- OUTSIDE RECORDS SUMMARY | 2024-08-08 16:26 | XMS_ITS ---
Author Organization [facility] Address [address] [place] [address] Care Team Providers Care Brewing Director Name Role Phone Alena Denny Unavailable [phone] Allergies Allergen (clinical drug ingredient) Drug/Non Drug [...] Active Encounters Encounter Location Date Provider Diagnosis [address] [place] [address] 03/07/2024 Alena Denny Depression F32.9 and Anxiety F41.9 Assessments [...] aware that this provider will be leaving [facility] as of 03/08/2024 and she will [...] aware that this provider will be leaving [facility] as of 03/08/2024 and she will be transitioned to a new provider for her next appointment. Next Appt Details Follow Up: 4 Weeks, Reason: Medication management - can be telehealth appt. Progress Notes * Cely TATUMDOB:1980 (43 yo F)Acc No.[id number]:03/07/2024 Patient: Cely LLOYD Provider: Demian DENNY, MSN, PROGRAM ADVISOR-C, PMHNP- :1980 A ge:43 Y S ex:Female Date:03/07/2024 Address:[address] [place], [place] [id number] Subjective: * Chief Complaints: * 2 Week F/U * HPI: C SSRS Interpretation and Follow Up Plan: CSSRS Interpretation and Follow Up Plan. CSSRS Interpretation and Follow Up Plan M oderate or High risk requires selection of a follow up plan C SSRS No/Low: intervention not needed at this time - Client talked with this provider. Denies plan/intent. Denies needing crisis intervention at this time. Verified with client that they have access to crisis numbers if and as needed.. D epression Screening: PHQ-9 L ittle interest or pleasure in doing things S everal days, F eeling down, depressed, or hopeless S everal days, T rouble falling or staying asleep, or sleeping too much N early every day, F eeling tired or having little energy Several days, P oor appetite or overeating S everal days, F eeling bad about yourself or that you are a failure, or have let yourself or your family down N ot at all, T rouble concentrating on things, such as reading the newspaper or watching television S everal ,?Moving or speaking so slowly that other people could have noticed; or the opposite, being so fidgety or restless that you have been moving around a lot more than usual S everal days, T houghts that you would be better off or of hurting yourself in some way N ot at all, T otal Score 9 , I nterpretation M ild Depression. I ntervention D epression Screening Findings P ositive, F ollow-Up for Depression N o Referral necessary, patient involved in behavioral health treatment .. S creening: [place] Suicide Severity Rating Scale (LF) D o you want to initiate with S creener form, 1 . Wish to be : Have you wished you were or wished you could go to sleep and not wake up? N o, 2 . Suicidal Thoughts: Have you actually had any thoughts of killing yourself? N o, 6 . Suicide Behaviour: Have you ever done anything,started to do anything, or prepared to end your life? N o, I nterpretation: L ow Risk. C onstitutional: Chief Complaint: Follow-up medications HPI: 43-year-old female [...] I am doing good on the medication. ? 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 [...] bladder issues Hospitalizations/medication changes by other providers: Denies. * ROS: * PSYCH ROS2: Elevated mood symptoms D enies. A dmits m ood swings. T houghts of self harm D enies. D enies H omicidal thoughts. H yperactivity?Denies. I nattention A dmits. B ehavior concerns D enies. D isruptive behavior D enies. O bsessive behavior D enies. C ompulsive behavior D enies. P aranoia D enies. D ifficulty concentrating A dmits. s leeping more than usual D enies. A dmits A nxiety. D enies A uditory/visual hallucinations. D enies D elusions. A dmits D epressed mood. A dmits D ifficulty sleeping. D enies E ating disorder. D enies L oss of appetite. A dmits S tressors. D enies S ubstance abuse. D enies S uicidal thoughts. * Medical History: * Surgical History: c ervical fusion tubal ligation * Hospitalization/Major Diagno stic Procedure: D enies Past Hospitalization * Family History: F ather: . M other: alive. 1 brother(s) , 4 sister(s) - healthy. 3 daughter(s) - healthy. . daugher: depression, anxiety, Bipolar Disorder daughter: depression, anxiety, mood disorder mother: depression maternal uncle: unknown mental health issues matenral grandmother: Schizophrenia. was hospitalized for mental health issues. * Social History: P [facility] Social History: L iving Arrangement L iving Arrangement: I ndependent Living, I s this a supportive environment? Y es. A lcohol Use A lcohol Use Frequency: N ever. I llicit Substance Usage I llicit Substance Usage: N o. 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 * Medications: T akingAlbuterol Sulfate 108 (90 Base) MCG/ACT Aerosol Powder [...] reviewed and reconciled with the patient * Allergies: Z ithromax Z-Pakno[Allergies Verified] Objective: * Vitals: I nitials: jk, LMP: 02/28/2024. Denies any physical symptoms; unable to obtain vital signs due to telephone encounter. * Examination: G eneral Examination: PSYCH: f ull range of affect/positive mood, tearful at times, , speech clear, no auditory or visual hallucinations, thought content without suicidal ideation or delusions, cognitive function intact, alert, oriented x4, judgement and insight good, thougdenies any current thoughts/plans of suidicial/homicidal ideation, ht process logical, goal directed. ? Assessment: * Assessment: 1. D epression - F32.9 (Primary) 2 . A nxiety - F41.9 Plan: * Treatment: 2. A nxiety Refill Ativan Tablet, 0.5 MG, 1 tablet, Orally, twice a day as needed As needed, 10 days, 20, Refills 0. Notes: Pt reports that she does not have to take medication often. Pt denies SI/HI at this time. COntinues to look for a therapist. Pt denies SI/HI 3. O thers Notes: Discussed treatment planDiscussed sleep hygiene and [...] made aware that this provider will be [facility] as of 03/08/2024nd she will be transitioned to a new provider for her next appointment. 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 [...] Hospitalizations/medication changes by other providers: Denies Screening [place] Suicide Severity Rating Scale (LF) Do you want to initiate with: Screener form 1. Wish to be : Have you wished you were or wished you could go to sleep and not wake up?: No 2. Suicidal Thoughts: Have you actually had any thoughts of killing yourself?: No 6. Suicide Behavior Question: Have you ever done anything,started to do anything, or prepared to end your life?: No Interpretation:: Low Risk Do Not Use CSSRS Interpretation [...]
--- OUTSIDE RECORDS SUMMARY | 2024-08-08 16:26 | XMS_ITS ---
Author Organization [facility] Address [address] [place] [address] Care Team Providers Care Slitter And Rewinder Machine Operator Name Role Phone Alena Denny Unavailable [phone] Allergies Allergen (clinical drug ingredient) Drug/Non Drug [...] Active Encounters Encounter Location Date Provider Diagnosis [address] [address] 02/08/2024 Alena Denny Depression F32.9 and Anxiety F41.9 [...] May also contact the 24-hour crisis hotline ([facility]), refer to the closest emergency room [...] Notes * Cely TATUMDOB:1980 (43 yo F)Acc No.[id number]:02/08/2024 Patient: Cely LLOYD Provider: Demian DENNY, MSN, SALES OFFICER-C, PMHNP-BC :1980 A ge:43 Y S ex:Female Date:02/08/2024 Address:[address] [place], [place] [id number] Subjective: * Chief Complaints: * 1 Month Psych F/U & Med Refill * HPI: S creening: [place] Suicide Severity Rating Scale (LF) D o [...] N o, I nterpretation: L ow Risk. This session was completed telephonically/zoom due to COVID-19 emergency, with client/parental/guardian consent. C SSRS Interpretation and Follow Up Plan: [...] days, F eeling down, depressed, or hopeless M ore than half the days, T rouble falling or staying asleep, or sleeping too much N early every day, F eeling tired or having little energy S everal days, P oor appetite or overeating N early every day, F eeling bad about yourself or that you are a failure, or have let yourself or your family down S everal days, T rouble concentrating on things, such as reading the newspaper or watching television N ot at all, M oving or speaking so slowly that other people could have noticed; or the opposite, being so fidgety or restless that you have been moving around a lot more than usual S everal days, T houghts that you would be better off or of hurting yourself in some way N ot at all, T otal Score 1 2, I nterpretation M oderate Depression. I ntervention D epression Screening Findings P ositive, F ollow-Up for Depression N o Referral necessary, patient involved in behavioral health treatment .. C onstitutional: Chief Complaint: Follow-up medications HPI: [...] world moving more and we went to [place] the other day. We planned a trip to go my sister's for Thanksgiving; we bought the plan tickets and will be going to visit her in [place]. Pt reports that she took 2 doses [...] concerns: Asthma Hospitalizations/medication changes by other providers: Denies. * [...] mental health issues. * Social History: P rimary Social History: L iving Arrangement L iving Arrangement: I ndependent Living, I s this a supportive environment? Y es. A lcohol Use A lcohol Use Frequency: N ever. I llicit Substance Usage I llicit Substance Usage: N o. 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 * Medications: T akingAlbuterol Sulfate 108 (90 [...] Objective: * Vitals: I nitials: jk, LMP: 01/31/2024. Denies any physical symptoms; unable to obtain [...] F41.9 Plan: * Treatment: 2. A nxiety Continue Ativan Tablet, 0.5 MG, 1 tablet, Orally, twice a day as needed As needed, 10 days, 20, Refills 0. Notes: Pt reports that she has only had to take 2 doses since her last visit. Pt denies SI/HI at this time. 3. O thers Notes: Discussed treatment planDiscussed [...] may be dangerous to self or others. * Procedure Codes: * Follow Up: 2 Weeks (Reason: Medication management - can be telehealth appt.) * * Sign off status: Completed true * Provider: Demian DENNY, MSN, SALES OFFICER-C, PMHNP-BC Date: 0 02/08/2024 Generated for Baljeet chang/Marli/Pallaviransmitting on: 0 08/08/2024 04:26 PM SENIOR SALES ASSISTANT History and Physical Notes * HPI (History [...] world moving more and we went to [place] the other day. We planned a trip to go my sister's for [employer]; we bought the plan tickets and will be going to visit her in [place]. Pt reports that she took 2 doses [...] changes by other providers: Denies Screening [place] Suicide Severity Rating Scale (LF) Do you want to initiate with: Screener form This session was completed telephonica vera/lisa due to COVID-19 emergency, with client/pare ntal/guardi an consent. 1. Wish to be : Have you [...]
--- OUTSIDE RECORDS SUMMARY | 2024-08-08 16:26 | XMS_ITS ---
Author Organization [facility] Address [address] [place] [address] Care Team Providers Care Cloth Shearer Name Role Phone Alena Denny Unavailable [phone] Allergies Allergen (clinical drug ingredient) Drug/Non Drug [...] Active Encounters Encounter Location Date Provider Diagnosis [address] [address] 02/22/2024 Alena Denny Depression F32.9 and Anxiety F41.9 [...] May also contact the 24-hour crisis hotline ([facility]), refer to the closest emergency room [...] Notes * Cely TATUMDOB:1980 (43 yo F)Acc No.[id number]:02/22/2024 Patient: Cely LLOYD Provider: Demian DENNY, MSN, DIRECTOR SHOPPER MARKETING-C, PMHNP- :1980 A ge:43 Y S ex:Female Date:02/22/2024 Address:[address] [place], [place] [id number] Subjective: * Chief Complaints: * 2 Week F/U * HPI: S creening: [place] Suicide Severity Rating Scale (LF) D o [...] o, I nterpretation: L ow Risk. C SSRS Interpretation and Follow Up Plan: CSSRS Interpretation and Follow Up Plan. CSSRS Interpretation and Follow Up Plan M oderate or High risk requires selection of a follow up plan C SSRS No/Low: intervention not needed at this time.? D epression Screening: PHQ-9 L ittle interest or pleasure in doing things S everal days, F eeling down, depressed, or hopeless S everal days, T rouble falling or staying asleep, or sleeping too much N early every day, F eeling tired or having little energy More than half the days, P oor appetite or overeating S everal , F eeling bad about yourself or that you are a failure, or have let yourself or your family down N ot at all, Trouble concentrating on things, such as reading the newspaper or watching television S ever, M oving or speaking so slowly that other people could have noticed; or the opposite, being so fidgety or restless that you have been moving around a lot more than usual S ever,?Thoughts that you would be better off or of hurting yourself in some way N ot at all, Total Score 1 0, I nterpretation M oderate Depression. I ntervention [...] o. 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 * Medications: T akingAlbuterol Sulfate 108 (90 [...] month. Pt denies SI/HI at this time. 3. [...] status: Completed true * Provider: Demian DENNY, HONEY, DIRECTOR SHOPPER MARKETING-C, PMHNP-BC Date: 0 02/22/2024 Generated for Baljeet chang/Marli/Jasmin on: 0 08/08/2024 04:26 PM WINDOWS MOBILE DEVELOPER History and Physical Notes * HPI (History [...] Hospitalizations/medication changes by other providers: Denies Screening [place] Suicide Severity Rating Scale (LF) Do you [...]
--- OUTSIDE RECORDS SUMMARY | 2024-08-08 16:26 | XMS_ITS | Patient Health Record ---
Author Organization [facility] Address [address] [place] [address] Care Team Providers Care Enterprise Services Manager Name Role Phone Jennifer Chapman Unavailable [phone] EduinAlena Unavailable [phone] Allergies Allergen (clinical drug ingredient) Drug/Non Drug Allergy documented on EMR Reaction Allergy Type Onset Date Status azithromycin Zithromax Z-Pelon Unknown Drug Allergy Active Reason For Referral Reason therapy Diagnosis 1 Depression (F32.9) Diagnosis 2 Anxiety (F41.9) Referral Organization [facility] Referring Provider First Name Alena Referring Provider Last Name Eduin Referring Provider Speciality Psychiatry Referred Provider Specialty Psychiatry sanjay everett Clinical Notes Kathya Lemons 11/16 02:31:41 PM >Staff KELECHI talks to Consumer. Consumer is in agreement with referral. Staff KELECHI provides Consumer information on how to get connected with [facility] therapy program. Referral addressed, closing. Referral Priority [...] Status W/U Status Risk Notes Problem Depression (515314208) Depression (F32.9) Active confirmed Problem Anxiety ([id number]) Anxiety (F41.9) Active confirmed Encounters Encounter Location Date Provider Diagnosis [address] [address] 11/17/2023 Jennifer Chapman [address] [address] 11/30/2023 Alena Eduin Depression F32.9 and Anxiety F41.[address] [address] 12/14/2023 Alena Eduin Depression F32.9 and Anxiety F41.[address] [address] 01/11/2024 Alena Eduin Depression F32.9 and Anxiety F41.[address] [address] 02/08/2024 Alena Eduin Depression F32.9 and Anxiety F41.[address] [address] 02/22/2024 Alena Eduin Depression F32.9 and Anxiety F41.[address] [address] 03/07/2024 Alena Eduin Depression F32.9 and Anxiety F41.[address] [address] 11/16/2023 Alena Eduin Depression F32.9 and Anxiety F41.9 Assessments Encounter Date Diagnosis (ICD Code) Assessment Notes Treatment Notes Treatment Clinical Notes Section Notes 11/30/2023 Depression (ICD-10 - F32.9) Will increase Fluoxetine to 20mg at this time; pt has been tolerating medication well and have noticed increased moods since starting medication. Pt reports that she is working towards scheduling therapy appt. Pt denies SI/HI at this time. 12/14/2023 Depression (ICD-10 - F32.9) Will continue Fluoxetine 20mg at this time; pt has been tolerating medication well and have noticed increased moods since starting medication. Pt reports that she has started therapy since last appt. Pt denies SI/HI at this time. 03/07/2024 [...] Pt continues to look for a therapist 02/08/2024 Depression (ICD-10 - F32.9) Will decrease Fluoxetine 10mg at this time; to see if this decreases sexual side effects as pt does not want to stop med at this time. Pt has noticed increased moods since starting medication. Pt denies SI/HI at this time. 01/11/2024 Depression (ICD-10 - F32.9) Will continue [...] to strong family hx of mood disorders 11/16/2023 Anxiety (ICD-10 - F41.9) Pt reports that she has responded well to Ativan in the past to help with her anxiety. Pt understands that this is a temporary RX until Fluoxetine has kicked in. Will consider adding BuSpar in the future if needed, Therapy referral placed. 01/11/2024 Anxiety (ICD-10 - F41.9) Pt reports that she has not needed to take any Ativan since her last visit. Pt denies SI/HI at this time. Pt understands that this is a short term RX. 02/08/2024 Anxiety (ICD-10 - F41.9) Pt reports that she has only had to take 2 doses since her last visit. Pt denies SI/HI at this time. 02/22/2024 Anxiety (ICD-10 - F41.9) Pt reports that she has only had to take 2 doses over the past month. Pt denies SI/HI at this time. 03/07/2024 Anxiety (ICD-10 - F41.9) Pt reports that she does not have to take medication often. Pt denies SI/HI at this time. COntinues to look for a therapist. Pt denies SI/HI 12/14/2023 Anxiety (ICD-10 - F41.9) Pt reports that she has only needed to take the Ativan once since last visit. Pt denies SI/HI at this time. Pt understands that this is a short term RX. 11/30/2023 Anxiety (ICD-10 - F41.9) Pt reports that she has only needed to take the Ativan once since last visit. Pt denies SI/HI at this time. Pt understands that this is a short term RX. 11/30/2023 Other Discussed treat ment planDiscussed sleep [...] may be dangerous to self or others. 11/16/2023 Other Discussed treat ment plan; patient [...] May also contact the 24-hour crisis hotline ([facility]), refer to the closest emergency [...] May also contact the 24-hour crisis hotline ([facility]), refer to the closest emergency [...] a new provider for her next appointment. 12/14/2023 Other Discussed treat ment planDiscussed sleep [...] May also contact the 24-hour crisis hotline ([facility]), refer to the closest emergency [...] to self or others. Plan Of Treatment No Information Insurance Providers Payer Name Payer Address Payer Phone Subscriber Number Group Number Insured Name Patient Relationship to Insured Coverage Start Date Coverage End Date [facility] [address] [place] [address] [id number] Cely Tatum Self - patient is the insured 4 Medical (General) History Medical History History ICD Code Asthma Surgical History Surgery Date(Month/Year) cervical fusion tubal ligation
--- OUTSIDE RECORDS SUMMARY | 2024-08-08 16:26 | XMS_ITS | Clinical Summary ---
Author Organization [facility] Sharonda Mehta Address [address] [place] [address] Care Team Providers Care Plug Assembler Name Role Phone João Zapata MD Primary Care Provider [phone] Allergies No known active allergies Medications traZODone [...] 70 10/20/2019 10:45 AM CDT Temperature 36.7 C (98 F) 10/20/2019 10:45 AM CDT Respiratory Rate - [...] age to complete this topic Care Teams Plug Assembler Relationship Specialty Start Date End Date João Zapata MD [address] [place] [address] PCP - General Family Practice 10/12/19
--- OUTSIDE RECORDS SUMMARY | 2024-08-08 16:26 | XMS_ITS | Referral Summary ---
Author Organization [facility] Address [address] [place] [address] Care Team Providers Care Operator Ground Based Air Defence Name Role Phone João Zapata MD Primary Care Provider [phone] Kimberly Sabillon SALES CONSULTANT Unavailable [phone] Source Comments [facility],non-owned Affiliates and Associated Physician Practices is amultiple site organization consisting of ambulatory clinics and hospital sitesin [place], [place], [place] and [place]. This disclosure is being madepursuant to the Care Everywhere program and may not contain all information available regarding this patient. Last updated 18.[facility] Allergies No known active allergies Medications * [...] 69 12/01/2016 3:11 PM CDT Temperature 36.9 C (98.5 F) 12/01/2016 3:11 PM CDT Respiratory Rate 16 12/01/2016 3:11 PM CDT [...] Comments LIPID PROFILE Routine 04/28/2016 9:01 AM KEYBOARD SPECIALIST Encounter to establish care with new doctor from Last 3 Months or Most Recently Relevant to Health Maintenance Results * (ABNORMAL) LIPID PROFILE (04/28/2016 9:01 AM KEYBOARD SPECIALIST) Cholesterol 111 <200 mg/dL 04/28/2016 10:33 AM KEYBOARD SPECIALIST [facility] Triglycerides 94 <150 mg/dL 04/28/2016 10:33 AM KEYBOARD SPECIALIST [facility] HDL Cholesterol 29(L) >40 mg/dL 6 10:33 AM KEYBOARD SPECIALIST [facility] Chol HDL Ratio 3.8 1.0 - 6.0 04/28/2016 10:33 AM [facility] LDL Calculated 63(L) 65 - 130 mg/dL 04/28/2016 10:33 AM KEYBOARD SPECIALIST [facility] VLDL Calculated 19 10 - 40 mg/dL 04/28/2016 10:33 AM KEYBOARD SPECIALIST [facility] Blood BLOOD SPECIMEN / Unknown 04/28/2016 9:01 AM KEYBOARD SPECIALIST 04/28/2016 9:49 AM [facility] Narrative [facility] - 04/28/2016 10:33 AM KEYBOARD SPECIALIST Lipid Profile Comment: CHOLESTEROL LEVEL..................CLINICAL INTERPRETATION LESS [...] Sabillon NP LAB - CHEMI STRY ORDERABLES [facility] [address] [place] [address], [facility] from Last 3 Months or Most Recently Relevant to Health Maintenance Additional Health Concerns Infection Onset Date Last Indicated MRSA Comment:+ cx abscess 12/01/16 12/01/2016 12/01/2016 Care Teams Operator Ground Based [employer] Defence Relationship Specialty Start Date End Date João Zapata MD [address] [place] [address] PCP - General 04/12/19 Kimberly Sabillon NP [address] [place] [address] Nurse Practitioner 04/12/19
--- OUTSIDE RECORDS SUMMARY | 2024-08-08 16:27 | XMS_ITS | Clinical Summary ---
Author Organization [facility] Address [address] [place] [address] Care Team Providers Care Vocational Education Teacher Name Role Phone João Zapata MD Primary Care Provider [phone] Kimberly Sabillon MILLING/POLISHING OPERATOR Unavailable [phone] Source Comments [facility],non-owned Affiliates and Associated Physician Practices is amultiple site organization consisting of ambulatory clinics and hospital sitesin [place], [place], [place] and [place]. This disclosure is being madepursuant to the Care Everywhere program and may not contain all information available regarding this patient. Last updated 18.[facility] Allergies No known active allergies Medications * [...] 09/23/1999 LIPID TESTING 04/28/2021 04/28/2016 COVID-19 VACCINE ( - 2023-2 5 season) 2024 INFLUENZA VACCINE [...] Comments LIPID PROFILE Routine 04/28/2016 9:01 AM MANUFACTURING CONTROLS ENGINEER Encounter to establish care with new doctor from Last 3 Months or Most Recently Relevant to Health Maintenance Results * (ABNORMAL) LIPID PROFILE (04/28/2016 9:01 AM MANUFACTURING CONTROLS ENGINEER) Cholesterol 111 <200 mg/dL 04/28/2016 10:33 AM [facility] Triglycerides 94 <150 mg/dL 04/28/2016 10:33 AM [facility] HDL Cholesterol 29(L) >40 mg/dL 6 10:33 AM [facility] Chol HDL Ratio 3.8 1.0 - 6.0 04/28/2016 10:33 AM [facility] LDL Calculated 63(L) 65 - 130 mg/dL 04/28/2016 10:33 AM [facility] VLDL Calculated 19 10 - 40 mg/dL 04/28/2016 10:33 AM [facility] Blood BLOOD SPECIMEN / Unknown 04/28/2016 9:01 AM [facility] 04/28/2016 9:49 AM [facility] - 04/28/2016 10:33 AM NEW [...] - CHEMI STRY ORDERABLES [facility] [address] [place] [address], [facility] from Last 3 Months or Most Recently Relevant to Health Maintenance Additional Health Concerns Infection Onset Date Last Indicated MRSA Comment:+ cx abscess 12/01/16 12/01/2016 12/01/2016 Care Teams Vocational Education Teacher Relationship Specialty Start Date End Date João Zapata MD [address] [place], [place] [id number] PCP - General 10/30/19 Kimberly Sabillon NP [address] [place] [address] Nurse Practitioner 04/12/19
--- OUTSIDE RECORDS SUMMARY | 2024-08-08 16:27 | XMS_ITS | Referral Summary ---
Author Organization [facility] [address] Address [address] [place] [address] Care Team Providers Care Manager Of Patient Name Role Phone Nia Jacob MD Primary [...] Monitor. PTSD (post-traumatic stress disorder) 12/31/2022 Immunizations Immunization Administration Dates Next Due Hep B Vaccine [...] on file Legal Sex Female 10:40 AM PROTECTIVE SERVICES SOCIAL WORKER Gender Identity Not on file Sexual Orientation [...] Plan of Treatment Not on file Insurance [facility] Care Teams Manager Of Patient Relationship Specialty Start Date End Date Nia Jacob MD PCP - General Family Practice 12/31/22
--- OUTSIDE RECORDS SUMMARY | 2024-08-08 16:27 | XMS_ITS | Patient Health Summary ---
Author Organization [facility] Address [address] [place] [address] Care Team Providers Care Roll Or Tape Edge Machine Operator Name Role Phone João Zapata MD Primary Care Provider [phone] Kimberly Sabillon HAIR BOILER Unavailable [phone] Note from [facility],non-owned Affiliates and Associated Physician Practices is amultiple site organization consisting of ambulatory clinics and hospital sitesin [place], [place], [place] and [place]. This disclosure is being madepursuant to the Care Everywhere program and may not contain all information available regarding this patient. Last updated 18.[facility] Allergies No known active allergies [...] * CT FACIAL BONES W WO CONTRAST [address] (12/01/2016 2:00 PM CDT) Anatomical Region Laterality [...] Bacon on 12/01/2016 2:48 PM Fredy Wallace WELFARE OFFICER-FORMS ANALYST CT ORDERABLES * (ABNORMAL) CULTURE WOUND+GRAM STAIN (12/01/2016 1:38 PM CDT) [facility] Signature Culture 2+ growth Staphylococcus aureus methicillin-resist ant (MRSA)(A) MYRNA 12/04/2016 7:41 AM CDT [facility] Gram Stain Few White blood cells 12/04/2016 7:41 AM CDT [facility] Gram Stain Many Gram-positive cocci 12/04/2016 7:41 AM CDT [facility] Microbiology SPECIMEN FROM ABSCESS / Unknown 12/01/2016 1:38 PM CDT 12/01/2016 1:43 PM CDT Narrative [facility] - 12/04/2016 7:41 AM CDT Methicillin [...] Vancomycin MYRNA 1 ug/mL: Susceptible Fredy Wallace WELFARE OFFICERProject Insiders LAB - MICROBIO LOGY ORDERABLES Performing Organization Address [facility] Co de Phone Number [facility] [address] [place] [address] * CULTURE BLOOD (12/01/2016 1:19 PM CDT) [facility] Culture No growth day 5 MYRNA 12/07/2016 6:22 AM CDT [facility] Blood PERIPHERAL BLOOD / Unknown Lab Venipuncture / Unknown 12/01/2016 1:19 PM CDT 12/01/2016 1:58 PM CDT [facility] - ZeelO LOGY ORDERABLES Performing Organization Address [facility] Co de Phone Number [facility] [address] [place] [address] * (ABNORMAL) CBC W AUTO DIFFERENTIAL (12/01/2016 1:19 PM CDT) Only the most recent of2 resultswithin the time period is included. [facility] WBC 16.9(H) 4.0 - 10.0 x10E9/L 12/01/2016 1:30 PM [facility] RBC 3.94 3.93 - 5.22 x10E12/L 12/01/2016 1:30 PM [facility] Hemoglobin 12.9 11.2 - 15.7 gm/dL 12/01/2016 1:30 PM [facility] Hematocrit 36.9 34.1 - 44.9 % 12/01/2016 1:30 PM [facility] MCV 93.7 78.0 - 100.0 fl 12/01/2016 1:30 PM [facility] MCH 32.7 25.6 - 34.0 pg 12/01/2016 1:30 PM [facility] MCHC 35.0 32.3 - 36.5 gm/dL 12/01/2016 1:30 PM [facility] RDW 12.7 11.6 - 14.4 % 12/01/2016 1:30 PM [facility] MPV 10.3 9.4 - 12.4 fl 12/01/2016 1:30 PM [facility] Platelet Count 336 163 - 369 x10E9/L 12/01/2016 1:30 PM [facility] Neutrophils % 76.6(H) 40.0 - 75.0 % 12/01/2016 1:30 PM [facility] Lymphocytes % 19.1(L) 19.3 - 53.1 % 12/01/2016 1:30 PM [facility] Monocytes % 3.3(L) 4.7 - 12.5 % 12/01/2016 1:30 PM [facility] Eosinophils % 0.7 0.7 - 7.0 % 12/01/2016 1:30 PM [facility] Basophils % 0.1 0.1 - 1.2 % 12/01/2016 1:30 PM [facility] Immature Granulocytes 0.2 0 - 0.5 % 12/01/2016 1:30 PM [facility] Neutrophil Absolute 12.92(H) 1.56 - 6.13 x10E9/L 12/01/2016 1:30 PM [facility] Lymphocytes Absolute 3.22 1.18 - 3.74 x10E9/L 12/01/2016 1:30 PM [facility] Monocytes Absolute 0.55 0.24 - 0.86 x10E9/L 12/01/2016 1:30 PM CDT [facility] Eosinophils Absolute 0.12 0.04 - 0.54 x10E9/L 12/01/2016 1:30 PM CDT [facility] Basophils Absolute 0.01 0.01 - 0.08 x10E9/L 12/01/2016 1:30 PM CDT [facility] Immature Granulocytes Absolute 0.03 0 - 0.03 x10E9/L 12/01/2016 1:30 PM CDT [facility] nRBC Auto 0 <=0 /100 WBC 12/01/2016 1:30 PM CDT [facility] nRBC Absolute 0.00 <=0 x10E9/L 12/01/2016 1:30 PM CDT [facility] Blood BLOOD SPECIMEN / Unknown Lab Venipuncture / Unknown 12/01/2016 1:19 PM CDT 12/01/2016 1:26 PM CDT Fredy Wallace WELFARE OFFICER-FORMS ANALYST LAB - HEMATOLO GY ORDERABLES Performing Organization Address [facility]/State/[facility] Co de Phone Number [facility] [address] * (ABNORMAL) COMPREHENSIVE METABOLIC PANEL (12/01/2016 1:19 PM CDT) Only the most recent of2 resultswithin the time period is included. [facility] Signature Glucose 75 70 - 125 mg/dL 12/01/2016 1:52 PM CDT [facility] Sodium 142 136 - 145 mmol/L 12/01/2016 1:52 PM CDT [facility] Potassium 3.4 3.4 - 4.5 mmol/L 12/01/2016 1:52 PM CDT [facility] Chloride 109(H) 98 - 107 mmol/L 12/01/2016 1:52 PM CDT [facility] CO2 23 22 - 29 mmol/L 12/01/2016 1:52 PM CDT [facility] Calcium 9.1 8.4 - 10.2 mg/dL 12/01/2016 1:52 PM CDT [facility] Anion Gap 13 10 - 20 mmol/L 12/01/2016 1:52 PM CDT [facility] BUN 4.5(L) 9.8 - 20.1 mg/dL 12/01/2016 1:52 PM [facility] Creatinine 0.60 0.57 - 1.11 mg/dL 12/01/2016 1:52 PM [facility] eGFR by MDRD >60 >60 mL/min/1.7 3m2 12/01/2016 1:52 PM [facility] eGFR by MDRD >60 >60 mL/min/1.7 3m2 12/01/2016 1:52 PM T [facility] Alkaline Phosphatase 74 40 - 150 U/L 12/01/2016 1:52 PM [facility] ALT 11 5 - 55 U/L 12/01/2016 1:52 PM [facility] AST 14 5 - 34 U/L 12/01/2016 1:52 PM [facility] Protein Total 6.6 6.4 - 8.3 gm/dL 12/01/2016 1:52 PM [facility] Albumin 3.7 3.5 - 5.0 gm/dL 12/01/2016 1:52 PM [facility] Globulin Total 2.9 2.6 - 4.0 gm/dL 12/01/2016 1:52 PM [facility] Albumin/Globulin Ratio 1.3 0.9 - 1.6 12/01/2016 1:52 PM [facility] Bilirubin Total 0.4 0.2 - 1.2 mg/dL 12/01/2016 1:52 PM [facility] Blood BLOOD SPECIMEN / Unknown Lab Venipuncture / Unknown 12/01/2016 1:19 PM CDT 12/01/2016 1:26 PM T Fredy Wallace WELFARE OFFICER-FORMS ANALYST LAB - CHEMISTR Y ORDERABLES Performing Organization Address City/State/[facility] Co de Phone Number [facility] [address] * (ABNORMAL) TSH REFLEX FREE T4 (04/28/2016 9:01 AM SOCIAL WORK THERAPIST) TSH 0.3383(L) 0.35 - 4.94 uIU/mL 04/28/2016 10:55 AM SOCIAL WORK THERAPIST [facility] Blood BLOOD SPECIMEN / Unknown 04/28/2016 9:01 AM SOCIAL WORK THERAPIST 04/28/2016 9:49 AM SOCIAL WORK THERAPIST Kimberly Sabillon HAIR BOILER LAB - CHEMI STRY ORDERABLES Performing Organization Address City/[facility]/ZIP Co de Phone Number [facility] [address] * (ABNORMAL) VITAMIN D 25-HYDROXY (04/28/2016 9:01 AM SOCIAL WORK THERAPIST) Pathologist [facility] Vitamin D, 25 Hydroxy 25.5(L) 30 - 60 ng/mL 04/28/2016 1:56 PM SOCIAL WORK THERAPIST [facility] Blood BLOOD SPECIMEN / Unknown 04/28/2016 9:01 AM SOCIAL WORK THERAPIST 04/28/2016 9:49 AM SOCIAL WORK THERAPIST Narrative [facility] - 04/28/2016 1:56 PM SOCIAL WORK THERAPIST Vitamin D interpretative comment: This immunoassay methodology detects both 20-OH vitamin D3 and 25-OH vitamin D2, but 25-OH vitamin D2 is detectable at a mean recovery level of 82% depending on the type of vitamin D2 prescribed. When monitoring of patients on vitamin D2 therapy, alternative vitamin D test with different methodology is suggested to confirm the results in patients with sub-therapeutic level or if the vitamin D results are inconsistent with clinical evidence. Kimberly Sabillon NP LAB - CHEMI STRY ORDERABLES Performing Organization Address [facility] Co de Phone Number [facility] [address] * T4 FREE (04/28/2016 9:01 AM SOCIAL WORK THERAPIST) [facility] T4 Free 0.92 0.71 - 1.48 ng/dL 04/28/2016 11:29 AM SOCIAL WORK THERAPIST [facility] Blood BLOOD SPECIMEN / Unknown 04/28/2016 9:01 AM SOCIAL WORK THERAPIST 04/28/2016 9:49 AM SOCIAL WORK THERAPIST Kimberly Sabillon HAIR BOILER LAB - CHEMI STRY ORDERABLES Performing Organization Address City/[facility]/ZIP Co de Phone Number [facility] [address] * (ABNORMAL) LIPID PROFILE (04/28/2016 9:01 AM SOCIAL WORK THERAPIST) [facility] Cholesterol 111 <200 mg/dL 04/28/2016 10:33 AM [facility] Triglycerides 94 <150 mg/dL 04/28/2016 10:33 AM [facility] HDL Cholesterol 29(L) >40 mg/dL 6 10:33 AM [facility] Chol HDL Ratio 3.8 1.0 - 6.0 04/28/2016 10:33 AM [facility] LDL Calculated 63(L) 65 - 130 mg/dL 04/28/2016 10:33 AM [facility] VLDL Calculated 19 10 - 40 mg/dL 04/28/2016 10:33 AM [facility] Blood BLOOD SPECIMEN / Unknown 04/28/2016 9:01 AM [facility] 04/28/2016 9:49 AM [facility] - 04/28/2016 10:33 AM [facility] Lipid Profile Comment: CHOLESTEROL LEVEL..................CLINICAL INTERPRETATION LESS [...] Sabillon NP LAB - CHEMI STRY ORDERABLES [facility] [address] [place], [place] [id number] [place] [address] Care Teams Roll Or Tape Edge Machine Operator Relationship Specialty Start Date End Date João Zapata MD [address] [place] [address] PCP - General 04/12/19 Kimberly Sabillon NP [facility] [place] [address] Nurse Practitioner 04/12/19
--- OUTSIDE RECORDS SUMMARY | 2024-08-08 16:27 | XMS_ITS | Clinical Summary ---
Author Organization [facility] [address] Address [address] [place] [address] Care Team Providers Care Assistant Director Of Plant Operations Name Role Phone Nia Jacob MD Primary [...] on file Legal Sex Female 10:40 AM BRICKLAYER Gender Identity Not on file Sexual Orientation [...] - Td or Tdap) 09/24/2026 09/24/2016, 01/07/2010 Hepatitis B Screening Completed 02/24/2010 , 01/07/2010 HPV Vaccines Aged Out No longer eligi ble based on patient's age to complete this topic Insurance [employer] [facility] Care Teams Assistant Director Of Plant Operations Relationship Specialty Start Date End Date Nia Jacob MD PCP - General Family Practice 12/31/22
== END 2024-08-08 14:12 | disposition home or self-care (01) ==
PROVIDERS: PCP Family Medicine; Visit Provider Family Medicine
DX: M50.30 Other cervical disc degeneration, unspecified cervical region (principal); Z98.1 Arthrodesis status
CPT/HCPCS: 72040

== ENCOUNTER 2024-10-25 11:07 | Outpatient (CLI) | payer OTHER, SELFPAY ==
--- NOTE | ~2024-10-25 | MR_ITS ---
MRI of the cervical spine Clinical History: Myelopathy Technique: Axial T2-weighted and gradient images, and sagittal T1-weighted, T2-weighted, and STIR silva ges were acquired. Findings: There is no acute fracture or subluxation of the cervical spine. There is anterior and inte rbody fusion from C5 to C6. No suspicious bone marrow signal abnormality seen. C2-C3, there is no disc bulge or herniation. No spinal canal stenosis, cord compression, or definite neural foraminal narrowing despite mild facet arthropathy bilaterally. At C3-C4, there is minimal disc bulge. No spinal canal stenosis, cord compression. Possible minimal b ilateral neural foraminal narrowing with mild bilateral facet arthropathy. At C4-C5, there is minimal disc osteophyte convex. No spinal canal stenosis, cord compression, or yane ral foraminal narrowing. At C5-C6, there is no disc bulge or herniation. No spinal canal stenosis, cord compression, or neural foraminal narrowing. At C6-C7, there is minimal disc bulge. No thang canal stenosis or cord compression. There is left yane ral foraminal narrowing. Possible mild right neural foraminal narrowing. No abnormal signal seen in the spinal cord. Paravertebral soft tissues are unremarkable. Impression: Mild degenerative spondylosis overall. C5-C6 fusion, as above. Reviewed, dictated and finalized at [facility]. Impression: Mild degenerative spondylosis overall. C5-C6 fusion, as above.
--- OUTSIDE RECORDS SUMMARY | 2024-10-25 11:25 | XMS_ITS | Clinical Summary ---
Author Organization [facility] Address [address] [place] [address] Care Team Providers Care Cap Jewel Plate Assembler Name Role Phone João Zapata MD Primary Care Provider [phone] Kimberly Sabillon CIRCULATION ANALYST Unavailable [phone] [facility],non-owned Affiliates and Associated Physician Practices is amultiple site organization consisting of ambulatory clinics and hospital sitesin [place], [place], [place] and [place]. This disclosure is being madepursuant to the Care Everywhere program and may not contain all information available regarding this patient. Last updated 18.[facility] Allergies No known active allergies Medications * This document contains information received from the source organization and may not represent a complete record from that organization. * Be aware that medications may not be up to date on this document. Alwaysverify current medications with the patient. sertraline (ZOLOFT) 100 MG tablet TAKE 1.5 TABLET ONCE A DAY ORALLY 30 DAY(S) 2 7 Active albuterol (PROVENTIL;VENT GONZALO) (2.5 MG/3ML) 0.083% nebulizer solution Inhale 1 Vial by mouth every 6 hours as needed for Shortness of Breath or Wheezing Active traMADol (ULTRAM) 50 MG tablet Take 1 Tab by mouth every 4 hours as needed for Pain 20 Tab 7 Active Social History Tobacco Use Types Packs/Day Years Used Date Smoking Tobacco: Every Day Cigarettes Smokeless Tobacco: Never Alcohol Use Standard Drinks/Week Comments No 0 (1 standard drink = 0.6 oz pur e alcohol) Comments No Sex and Gender Information Value Date Recorded Sex Assigned at Not on file Legal Sex Female 8:48 AM COACH CLEANER Gender Identity Not on file Sexual Orientation [...] Due Date Last Done Comments MAMMOGRAM 1980 HIV SCREENING 09/23/1995 HEPATITIS C SCREENING 09/18/1998 DTAP/TDAP/TD VACCINES (1 - Tdap) 09/23/1999 HEPATITIS B VACCINE (1 of 3 - 19+ 3-dose series) 09/23/1999 PNEUMOCOCCAL VACCINE (1 of 2 - PCV) 09/23/1999 LIPID TESTING 04/28/2021 04/28/2016 COVID-19 VACCINE (1 - 2023-2 5 season) 2024 DEPRESSION SCREENING 06/14/2024 INFLUENZA VACCINE (Season Ended) 2025 ZOSTER VACCINE (1 of 2) 2030 HIB VACCINE Aged Out No longer eligi ble based on patient's age to complete this topic HPV VACCINE Aged Out No longer eligi ble based on patient's age to complete this topic MENINGOCOCCAL (Group B) VACC INE SHARED DECISION-MAKING Aged Out No longer eligibl e based on patient's age to complete this topic MENINGOCOCCAL GROUPS A/C/Y/W VACCINE Aged Out No longer eligible b ased on patient's age to complete this topic Procedures Procedure Name Priority Date/Time Associated Diagnosis Comments LIPID PROFILE Routine 04/28/2016 9:01 AM COACH CLEANER Encounter to establish care with new doctor from Last 3 Months or Most Recently Relevant to Health Maintenance Results * (ABNORMAL) LIPID PROFILE (04/28/2016 9:01 AM COACH CLEANER) Cholesterol 111 <200 mg/dL 04/28/2016 10:33 AM COACH CLEANER [facility] Triglycerides 94 <150 mg/dL 04/28/2016 10:33 AM COACH CLEANER [facility] HDL Cholesterol 29(L) >40 mg/dL 6 10:33 AM COACH CLEANER [facility] Chol HDL Ratio 3.8 1.0 - 6.0 04/28/2016 10:33 AM COACH CLEANER [facility] LDL Calculated 63(L) 65 - 130 mg/dL 04/28/2016 10:33 AM COACH CLEANER [facility] VLDL Calculated 19 10 - 40 mg/dL 04/28/2016 10:33 AM [facility] Blood BLOOD SPECIMEN / Unknown 04/28/2016 9:01 AM COACH CLEANER 04/28/2016 9:49 AM [facility] Narrative [facility] - 04/28/2016 10:33 AM [facility] Lipid Profile Comment: CHOLESTEROL LEVEL..................CLINICAL INTERPRETATION [...] 3X AVERAGE...................>23........................>11 Kimberly Sabillon NP LAB - CHEMISTRY ORD ERABLES Final Result [facility] [address] [place] [address], [place] from Last 3 Months or Most Recently Relevant to Health Maintenance Additional Health Concerns Infection Onset Date Last Indicated MRSA Comment:+ cx abscess 12/01/16 12/01/2016 12/01/2016 Insurance [employer] [place] [facility] [employer] [place] [address] Care Teams Cap Jewel Plate Assembler Relationship Specialty Start Date End Date João Zapata MD [address] [place] [address] PCP - General 04/12/19 Kimberly Sabillon NP [facility] [place] [address] Nurse Practitioner 04/12/19
--- OUTSIDE RECORDS SUMMARY | 2024-10-25 11:25 | XMS_ITS | Referral Summary ---
Author Organization [facility] [address] Address [address] [place] [address] Care Team Providers Care Trolley Worker Name Role Phone Nia Jacob MD Primary [...] on file Legal Sex Female 10:40 AM CONTRACT NEGOTIATION MANAGER Gender Identity Not on file Sexual Orientation [...] Plan of Treatment Not on file Insurance [facility] Care Teams Trolley Worker Relationship Specialty Start Date End Date Nia Jacob MD PCP - General Family Practice 12/31/22
--- OUTSIDE RECORDS SUMMARY | 2024-10-25 11:25 | XMS_ITS | Patient Health Record ---
Author Organization [facility] Address [address] [place] [address] Care Team Providers Care Behavioral Technician Name Role Phone Jennifer Chapman Unavailable [phone] EduinAlena Unavailable [phone] Allergies Allergen (clinical drug ingredient) Drug/Non Drug Allergy documented on EMR Reaction Allergy Type Onset Date Status azithromycin Zithromax Z-Pelon Unknown Drug Allergy Active Reason For Referral Reason therapy Diagnosis 1 Depression (F32.9) Diagnosis 2 Anxiety (F41.9) Referral Organization [facility] Referring Provider First Name Alena Referring Provider Last Name Eduin Referring Provider Speciality Psychiatry Referred Provider Specialty Psychiatry sanjay everett Clinical Notes Kathya Lemons 11/16 02:31:41 PM >Staff KELECHI talks to Consumer. Consumer is in agreement with referral. Staff KELECHI provides Consumer information on how to get connected with [facility] therapy program. Referral addressed, closing. Referral Priority [...] Status W/U Status Risk Notes Problem Depression (183218888) Depression (F32.9) Active confirmed Problem Anxiety ([id number]) Anxiety (F41.9) Active confirmed Encounters Encounter Location Date Provider Diagnosis [address] [address] 11/16/2023 Alena Eduin Depression F32.9 and Anxiety F41.[address] [address] 11/30/2023 Alena Eduin Depression F32.9 and Anxiety F41.[address] [address] 12/14/2023 Alena Eduin Depression F32.9 and Anxiety F41.[address] [address] 01/11/2024 Alena Eduin Depression F32.9 and Anxiety F41.[address] [address] 02/08/2024 Alena Eduin Depression F32.9 and Anxiety F41.[address] [address] 02/22/2024 Alena Eduin Depression F32.9 and Anxiety F41.[address] [address] 03/07/2024 Alena Eduin Depression F32.9 and Anxiety F41.[address] [address] 11/17/2023 Jennifer Chapman Assessments Encounter Date Diagnosis (ICD Code) Assessment Notes Treatment Notes Treatment Clinical Notes Section Notes 11/16/2023 Depression (ICD-10 - F32.9) Will start [...] to strong family hx of mood disorders 11/30/2023 Depression (ICD-10 - F32.9) Will increase [...] appt. Pt denies SI/HI at this time. 02/08/2024 Depression (ICD-10 - F32.9) Will decrease Fluoxetine 10mg at this time; to see if this decreases sexual side effects as pt does not want to stop med at this time. Pt has noticed increased moods since starting medication. Pt denies SI/HI at this time. 02/22/2024 Depression (ICD-10 - F32.9) Pt reports that she has noticed some increase in OCD symptoms since decreasing Fluoxetine dose but does not want to increase dose at this time. Pt denies SI/HI at this time. Pt continues to look for a therapist 03/07/2024 Depression (ICD-10 - F32.9) Pt reports [...] look for a therapist. Pt denies SI/HI 02/22/2024 Anxiety (ICD-10 - F41.9) Pt reports that she has only had to take 2 doses over the past month. Pt denies SI/HI at this time. 02/08/2024 Anxiety (ICD-10 - F41.9) Pt reports that she has only had to take 2 doses since her last visit. Pt denies SI/HI at this time. 01/11/2024 [...] the future if needed, Therapy referral placed. 11/16/2023 Other Discussed treat ment plan; patient [...] also contact the 24-hour crisis hotline ([facility]), refer to the closest emergency [...] also contact the 24-hour crisis hotline ([facility]), refer to the closest emergency [...] also contact the 24-hour crisis hotline ([facility]), refer to the closest emergency [...] aware that this provider will be leaving [facility] as of 03/08/2024 and she will be transitioned to a new provider for her next appointment. Plan Of Treatment No Information Insurance Providers Payer Name Payer Address Payer Phone Subscriber Number Group Number Insured Name Patient Relationship to Insured Coverage Start Date Coverage End Date [facility] [address] [place] [address] [id number] Cely Tatum Self - patient is the insured 4 Medical (General) History Medical History History ICD Code Asthma Surgical History Surgery Date(Month/Year) cervical fusion tubal ligation
--- OUTSIDE RECORDS SUMMARY | 2024-10-25 11:25 | XMS_ITS | Clinical Summary ---
Author Organization [facility] Sharonda Mehta Address [address] [place] [address] Care Team Providers Care Documentation Manager Name Role Phone João Zapata MD Primary Care Provider + [phone] Allergies No known active allergies Medications traZODone [...] of 3 - 19+ 3-dose series) 09/23/1999 HPV/Cotest (21-29) 2001 CERVICAL CANCER SCREENING 2010 HPV/Cotest (30-65) 2010 PAP SMEAR 2010 BREAST CANCER SCREENING 2020 INFLUENZA VACCINE (#1) 2024 HPV VACCINES Aged Out No longer eligi ble based on patient's age to complete this topic Care Teams Documentation Manager Relationship Specialty Start Date End Date João Zapata MD [address] [place] [address] PCP - General Family Practice 10/12/19
--- OUTSIDE RECORDS SUMMARY | 2024-10-25 11:25 | XMS_ITS | Clinical Summary ---
Author Organization [facility] [address] Address [address] [place] [address] Care Team Providers Care Newspaper Photo Editor Name Role Phone Nia Jacob MD Primary [...] on file Legal Sex Female 10:40 AM HOUSE PLAYER Gender Identity Not on file Sexual Orientation [...] 09/24/2016 Depression Screening 01/01/2024 12/31/2022 Influenza Vaccine (Season Ended) 2025 04/20/2016, 07/13/2013, 04/09/2006 DTaP/Tdap/Td Vaccine (3 - Td or Tdap) 09/24/2026 09/24/2016, 01/07/2010 Hepatitis B Screening Completed 02/24/2010 , 01/07/2010 HPV Vaccines Aged Out No longer eligi ble based on patient's age to complete this topic Insurance [place] [employer] [facility] Care Teams Newspaper Photo Editor Relationship Specialty Start Date End Date Nia Jacob MD PCP - General Family Practice 12/31/22
== END 2024-10-25 11:08 | disposition home or self-care (01) ==
PROVIDERS: PCP Family Medicine
DX: M47.812 Spondylosis without myelopathy or radiculopathy, cervical region (principal); Z98.1 Arthrodesis status; G95.9 Disease of spinal cord, unspecified
CPT/HCPCS: 72141

== ENCOUNTER 2024-12-22 12:18 | Outpatient (CLI) | payer OTHER, SELFPAY ==
--- NOTE | ~2024-12-22 | XR_ITS ---
EXAM/PROCEDURE: XR chest 2V - 12/22/2024 12:36 CDT HISTORY: 44 years old Female with preop testing, hx of asthma/ former smoker TECHNIQUE: Two view(s) of the chest. COMPARISON: None available. FINDINGS: LUNGS/ PLEURA: No focal consolidation. No appreciable pneumothorax or large pleural effusion. HEART/ MEDIASTINUM: Heart appears normal in size. BONES: No acute osseous abnormality. OTHER: Visualized upper abdomen is unremarkable. Partially visualized ACDF. IMPRESSION: No acute process. Reviewed, dictated and finalized at location A. IMPRESSION: No acute process.
--- OUTSIDE RECORDS SUMMARY | 2024-12-22 12:21 | XMS_ITS | Patient Health Record ---
Author Organization [facility] Address [address] [place] [address] Care Team Providers Care Can Bander Operator Name Role Phone Alena Denny Unavailable [phone] Allergies Allergen (clinical drug ingredient) Drug/Non Drug Allergy documented on EMR Reaction Allergy Type Onset Date Status azithromycin Zithromax Z-Pelon Unknown Drug Allergy Active Reason For Referral No Information Medications Medication SIG (Take, Route, Frequency, Duration) Notes Start Date End Date Status FLUoxetine HCl 10 MG 1 capsule Orally On ce a day; Duration: 30 days Active Multivitamin - 1 tablet Orally Once a day Active Albuterol Sulfate 108 (90 Base) MCG/ACT 1 puff as needed Inhalation every 4 hrs Active FLUoxetine HCl 10 MG 1 capsule Orally On ce a day; Duration: 30 days Active Ativan 0.5 MG 1 tablet Orally twice a day as needed; Duration: 10 days As needed 03/07/2024 Active Social [...] Problem Status W/U Status Risk Notes Problem Information temporarily unavailable Depression (F32.9) Active confirmed Problem Information temporarily unavailable Anxiety (F41.9) Active confirmed Encounters Encounter Location Date Provider Diagnosis [address] [place] [address] 01/11/2024 Alena Denny Depression F32.9 and Anxiety F41.[address] [place] [address] 02/08/2024 Alena Eduin Depression F32.9 and Anxiety F41.[address] [place] [address] 02/22/2024 Alena Eduin Depression F32.9 and Anxiety F41.[address] [facility] [place] [address] 03/07/2024 Alena Eduin Depression F32.9 and Anxiety F41.9 Assessments Encounter Date Diagnosis (ICD Code) Assessment Notes Treatment Notes Treatment Clinical Notes Section Notes 01/11/2024 Depression (ICD-10 - F32.9) Will continue [...] that this is a short term RX. 01/11/2024 Other Discussed treat ment planDiscussed sleep [...] contact the 24-hour crisis hotline ([facility]), refer to the closest emergency room or [...] aware that this provider will be leaving [facility] as of 03/08/2024 and she will be transitioned to a new provider for her next appointment. Plan Of Treatment No Information Insurance Providers Payer Name Payer Address Payer Phone Subscriber Number Group Number Insured Name Patient Relationship to Insured Coverage Start Date Coverage End Date [facility] [address] [place] [address] [id number] Cely Tatum Self - patient is the insured 4 Medical (General) History Medical History History ICD Code Asthma Surgical History Surgery Date(Month/Year) cervical fusion tubal ligation
--- OUTSIDE RECORDS SUMMARY | 2024-12-22 12:21 | XMS_ITS | Clinical Summary ---
Author Organization [facility] Address [address] [place] [address] Care Team Providers Care Marine Electronics Repairer Name Role Phone João Zapata MD Primary Care Provider [phone] Kimberly Sabillon BILL HIKER Unavailable [phone] Source Comments [facility]non-owned Affiliates and Associated Physician Practices is amultiple site organization consisting of ambulatory clinics and hospital sitesin [place], [place], [place] and [place]. This disclosure is being madepursuant to the Care Everywhere program and may not contain all information available regarding this patient. Last updated 18.[facility] Allergies No known active allergies Medications * [...] on file Legal Sex Female 8:48 AM BRACELET MAKER NOVELTY Gender Identity Not on file Sexual Orientation [...] 12:38 PM CDT Height 157.5 cm (5' 2) 12/01/2016 12:38 PM CDT Body Mass Index [...] Comments LIPID PROFILE Routine 04/28/2016 9:01 AM BRACELET MAKER NOVELTY Encounter to establish care with new doctor from Last 3 Months or Most Recently Relevant to Health Maintenance Results * (ABNORMAL) LIPID PROFILE (04/28/2016 9:01 AM BRACELET MAKER NOVELTY) Cholesterol 111 <200 mg/dL 04/28/2016 10:33 AM BRACELET MAKER NOVELTY [facility] Triglycerides 94 <150 mg/dL 04/28/2016 10:33 AM BRACELET MAKER NOVELTY [facility] HDL Cholesterol 29(L) >40 mg/dL 6 10:33 AM BRACELET MAKER NOVELTY [facility] Chol HDL Ratio 3.8 1.0 - 6.0 04/28/2016 10:33 AM BRACELET MAKER NOVELTY [facility] LDL Calculated 63(L) 65 - 130 mg/dL 04/28/2016 10:33 AM BRACELET MAKER NOVELTY [facility] VLDL Calculated 19 10 - 40 mg/dL 04/28/2016 10:33 AM [facility] Blood BLOOD SPECIMEN / Unknown 04/28/2016 9:01 AM BRACELET MAKER NOVELTY 04/28/2016 9:49 AM [facility] Narrative [facility] - 04/28/2016 10:33 AM [facility] Lipid Profile Comment: CHOLESTEROL LEVEL..................CLINICAL [...] LAB - CHEMISTRY ORD ERABLES Final Result [facility] [address] [place] [address], [facility] from Last 3 Months or Most Recently Relevant to Health Maintenance Additional Health Concerns Infection Onset Date Last Indicated MRSA Comment:+ cx abscess 12/01/16 12/01/2016 12/01/2016 Insurance [facility] [employer] [place] [facility] [employer] [place] Care Teams Marine Electronics Repairer Relationship Specialty Start Date End Date João Zapata MD [address] [place] [address] PCP - General 04/12/19 Kimberly Sabillon NP [facility] [place] [address] Nurse Practitioner 04/12/19
--- OUTSIDE RECORDS SUMMARY | 2024-12-22 12:21 | XMS_ITS | Clinical Summary ---
Author Organization [facility] Sharonda Mehta Address [address] [place] [address] Care Team Providers Care Burner Technician Name Role Phone João Zapata MD Primary Care Provider + [phone] Allergies No known active allergies Medications traZODone [...] 10:45 AM CDT Height 157.5 cm (5' 2) 10/20/2019 10:45 AM CDT Body Mass Index 21.03 10/20/2019 10:45 AM CDT Plan of Treatment Health Maintenance Due Date Last Done Comments DTAP/TDAP/TD VACCINES (1 - Tdap) 09/23/1999 HEPATITIS B VACCINES (1 of 3 - 19+ 3-dose series) 09/23/1999 HPV/Cotest (21-29) 2001 CERVICAL CANCER SCREENING 2010 HPV/Cotest (30-65) 2010 PAP SMEAR 2010 BREAST CANCER SCREENING 2020 INFLUENZA VACCINE (#1) 2025 HPV VACCINES Aged Out No longer eligi ble based on patient's age to complete this topic Care Teams Burner Technician Relationship Specialty Start Date End Date João Zapata MD [address] [place] [address] PCP - General Family Practice 10/12/19
--- OUTSIDE RECORDS SUMMARY | 2024-12-22 12:22 | XMS_ITS | Referral Summary ---
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 Gender Identity Not on file Sexual Orientation Not on file Last Filed Vital Signs Vital Sign Reading Time Taken Comments Blood Pressure 112/64 12/31/2022 2:02 PM CDT Pulse 68 12/31/2022 2:02 PM CDT Temperature - - Respiratory Rate - - Oxygen Saturation - - Inhaled Oxygen Concentration - - Weight 49.4 kg (109 lb) 12/31/2022 2:02 PM CDT Height 157.5 cm (5' 2) 12/31/2022 2:02 PM CDT Body Mass Index 19.94 12/31/2022 2:02 PM CDT Plan of Treatment Not on file Insurance [facility] Care Teams Manpower Development Specialist Manager Relationship Specialty Start Date End Date Nia Jacob MD PCP - General Family Practice 12/31/22
--- OUTSIDE RECORDS SUMMARY | 2024-12-22 12:22 | XMS_ITS | Clinical Summary ---
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 Gender Identity Not on file Sexual Orientation [...] Depression Screening 01/01/2024 12/31/2022 Influenza Vaccine (#1) 2025 6, 07/13/2013, 04/09/2006 DTaP/Tdap/Td Vaccine (3 - Td or Tdap) 09/24/2026 09/24/2016, 01/07/2010 Hepatitis B Screening Completed 02/24/2010 , 01/07/2010 HPV Vaccines Aged Out No longer eligi ble based on patient's age to complete this topic Insurance [employer] [facility] Care Teams Farmworker Livestock Relationship Specialty Start Date End Date Nia Jacob MD PCP - General Family Practice 12/31/22
--- NOTE | 2024-12-22 12:36 | ECG_ITS ---
Test Date: 2024-12-22 12:54:24 Measurements Intervals [place] Rate: 55 P: 21 TX: 136 QRS: 93 QRSD: 89 T: 27 QT: 406 QTc: 389 Interpretive Statements SINUS BRADYCARDIA BORDERLINE RIGHT AXIS DEVIATION [QRS AXIS > 90] MODERATE ST DEPRESSION [0.05+ mV ST DEPRESSION] Electronically Signed On 12-22-2024 22:29:21 CDT by Bhumi Decker M.D.
[2024-12-22 12:40] LABS: Hematocrit 39.2 % (35.0-49.0); Hemoglobin 13.1 g/dL (12.0-15.0); Immature Granulocyte Percent A 0.4 % (0.0-0.0); Lymphocytes Absolute Auto 3.30 K/mm3 (1.10-4.50); Mean Corpuscular HGB Conc 33.4 g/dL (32-36); Mean Corpuscular Hemoglobin 32.3 pg (27.0-31.0); Mean Corpuscular Volume 96.6 fL (78.0-102.0); Nucleated Red Blood Cells Absolute Auto 0.00 K/mm3 (0.00-0.00); Nucleated Red Blood Cells Perc 0.0 % (0-0.0); Platelet Count Result 318 K/mm3 (150-420); Red Blood Count 4.06 M/mm3 (4.20-5.40); White Blood Count 11.1 K/mm3 (4.8-10.8)
[2024-12-22 12:58] LABS: Alanine Aminotransferase 16 U/L (6-35); Albumin Level 4.4 g/dL (3.5-5.1); Alkaline Phosphatase 52 U/L (38-126); Anion Gap 5 mmol/L (4-12); Aspartate Amino Transferase 22 U/L (14-36); Bilirubin,Total 0.6 mg/dL (0.2-1.3); Blood Urea Nitrogen 9 mg/dL (7-17); Calcium 9.3 mg/dL (8.4-10.2); Carbon Dioxide 25 mmol/L (22-30); Chloride 109 mmol/L (98-107); Estimated Glomerular Filt Rate > 60; Glucose 82 mg/dL (65-110); Osmolality Calculated 285 mOsm/kg (285-295); Potassium 4.2 mmol/L (3.4-5.0); Sodium 139 mmol/L (137-145); Total Protein 7.1 g/dL (6.3-8.2)
[2024-12-22 13:12] LABS: Add Urine Microscopic? NO; Appearance Urine Clear (Clear); Glucose Urine UA Negative (Negative); Leukocyte Esterase Ur Negative (Negative); Nitrate Urine Negative (Negative); Specific Grav Ur 1.010 (1.010-1.020)
== END 2024-12-22 12:19 | disposition home or self-care (01) ==
PROVIDERS: PCP Family Medicine
DX: Z01.818 Encounter for other preprocedural examination (principal); Z87.891 Personal history of nicotine dependence; J45.909 Unspecified asthma, uncomplicated; R00.1 Bradycardia, unspecified
CPT/HCPCS: 36415; 71046; 80053; 81003; 85025; 93005

== ENCOUNTER 2025-01-01 09:12 | Emergency (ER) | payer OTHER, SELFPAY ==
--- NOTE | ~2025-01-01 | XR_ITS ---
XR lumbar spine 2-3V 01/01/2025 10:13 Indication: Low back pain Procedure: 3 views lumbar spine Comparison: No prior studies for comparison. Findings: Vertebral body heights are maintained. No significant disc narrowing. No evidence for spond ylolysis or spondylolisthesis. Pedicles intact. Sacral foramen are symmetric. No fracture or traumati c malalignment. Impression: 1: No acute abnormality of the lumbar spine. Reviewed, dictated and finalized at location A. Impression: 1: No acute abnormality of the lumbar spine.
[2025-01-01 09:12] VITALS: BP 131/78; PULSE 86; RESP 20; TEMP 37.1; O2SAT 99
--- NOTE | 2025-01-01 09:19 | ED_ITS ---
HPI - Back Pain/Injury General Chief Complaint: Back Pain/Injury Stated Complaint: lower back pain Time Seen by Provider: 01/01/25 09:17 Source: patient Mode of arrival: ambulatory Limitations: no limitations History of Present Illness HPI Narrative: Patient is a 44-year-old female with lower back pain acutely after bending over prior to arrival. She has cervical spine issues but that is not a bother at this time. Lower back pain as sharp and causing significant distress due to pain. No loss of urine or stool or saddle anesthesia. Pain does not radiate. No numbness or tingling on the legs or buttocks. MD elicited complaint: back pain and back injury ( Patient bent over to reach for a plugged and the pain instantly started at that time) Pertinent past history: prior back pain ( only cervical neck pain; this is the 1st of a lumbar back pain) Onset (ago): hour(s) ( 1) Timing: constant Severity: severe Pain scale (0-10): 8 Similar Symptoms Previously: No Quality: sharp and spasming Location: lumbar spine Radiation: none Exacerbating factors: movement and sitting upright Relieving factors: immobilization and supine Context: bending Associated symptoms: denies other symptoms Treatments prior to arrival: other ( none) Related Data Home Medications ?Medication ?Instructions ?Recorded ?Confirmed ?Last Taken ?Type albuterol sulfate 2.5 mg/3 mL 07/02/20 Unknown History (0.083 %) solution for nebulization albuterol sulfate 90 mcg/actuation inhalation 07/02/20 Unknown History aerosol inhaler aripiprazole 5 mg tablet (Abilify) 5 mg PO DAILY 01/01/25 01/01/25 Unknown History gabapentin 300 mg capsule mg 01/01/25 Unknown History tizanidine 4 mg tablet mg 01/01/25 Unknown History Allergies Allergy/AdvReac Type Severity Reaction Status Date / Time azithromycin Allergy Intermediate Hives Verified 01/01/25 09:19 Review of Systems Review of Systems: All systems reviewed & are unremarkable except as noted in HPI and below Constitutional: Constitutional: Reports no additional constitutional complaints Eyes: Eyes: Reports no additional eye complaints ENT: Reports system reviewed and no additional complaints, except as documented Cardiovascular: Cardiovascular: Reports no additional cardiovascular complaints Respiratory: Respiratory: Reports no additional respiratory complaints Gastrointestinal: Gastrointestinal: Reports no additional gastrointestinal complaints Genitourinary: Genitourinary: Reports no additional female genitourinary complaints Musculoskeletal: Musculoskeletal: Reports no additional musculoskeletal complaints Integumentary/Breasts: Skin/Breast: Reports system reviewed and no additional complaints, except as docu Neurologic: Reports system reviewed and no additional complaints, except as documented Psychiatric: Psychiatric: Reports no additional psychiatric complaints Endocrine: Endocrine: Reports no additional endocrine complaints Hematologic/Lymphatic: Hematologic/Lymphatic: Reports no additional hematologic/lymphatic complaints Allergic/Immunologic: Allergic/Immunologic: Reports no additional allergic/immunologic complaints PMFSH Past Medical History Medical History Anxiety Depression Seizure Surgical History Surgical History History of cervical spinal arthrodesis Social History Social History Smoking status: Current every day smoker Alcohol intake: unknown Substance use: current Substance use type: marijuana and amphetamines Gender identity (if verbalized by the patient): Female Exam Const: General: healthy appearing Nutritional Appearance: well nourished Orientation/consciousness: patient oriented x3 HENMT: Head: normal to inspection Ears: external ears normal Face/Nose/Sinus: Normal external nose present Eyes: Conjunctivae: conjunctivae normal Pupils: Equal, round and reactive pupils present EOM: EOMs intact bilaterally Neck: Neck: normal visual inspection Chest: Chest palpation & inspection: normal inspection of the chest Resp: Effort & Inspection: normal respiratory effort and not labored Auscultation: clear to auscultation bilaterally and no crackles Cardio: Rate: regular rate Rhythm: regular rhythm Heart sounds: no murmurs GI: Inspection: non-distended GI Palp: Yes Soft to palpation and No Tenderness to palpation present (GI) Auscultation: normal bowel sounds : General: Yes bladder normal to palpation Back/Spine/Pelvis: Back: no CVA tenderness Other: tenderness of the midline and more so to the right lateral spine lumbar region around L2-L3 region with spasms of the paraspinal muscles Skin: General skin exam: normal color Rashes: no rashes Wounds: no woun ds Neuro: General: patient oriented x3, moves all extremities, no meningeal signs, no focal motor deficits and CN's II-XI intact bilaterally Cranial nerves: Yes Nystagmus not present Speech: normal speech Extrem: General: normal to inspection Psych: Mental Status: mental status grossly normal Affect: normal affect Attitude: cooperative Course Vital Signs Vital signs: Vital Signs Temperature 37.1 C 01/01/25 09:12 Pulse Rate 86 01/01/25 09:12 Respiratory Rate 01/01/25 09:12 Blood Pressure 131/78 01/01/25 09:12 Pulse Oximetry 99 01/01/25 09:12 Oxygen Delivery Room Air 01/01/25 09:12 Temperature 37.1 C 01/01/25 09:12 Pulse Rate 86 01/01/25 09:12 Respiratory Rate 20 01/01/25 09:12 Blood Pressure 131/78 01/01/25 09:12 Pulse Oximetry 99 01/01/25 09:12 Oxygen Delivery Room Air 01/01/25 09:12 MDM - Back Pain/Injury MDM Narrative Medical decision making narrative: patient is a 44-year-old female with lower back pain acutely after bending over. We will start with Toradol and Norflex injection. Further get x-rays when she is comfortable. Imaging Data Attestation: I personally reviewed and interpreted this imaging study as follows: Radiologist's impression: x-ray lumbar spine is negative for acute process Discharge Plan Discharge Clinical Impression: Lumbago Qualifiers: Chronicity: acute Back pain laterality: right Sciatica presence: without sciatica Qualified Code(s): M54.50 - Low back pain, unspecified Patient Disposition: Home Condition: Improved Instructions: Acute Low Back Pain (ED) Patient Language: Marshallese Prescriptions: New orphenadrine citrate 100 mg tablet extended release 100 mg PO BID Qty: 20 0RF No Action tizanidine 4 mg tablet gabapentin 300 mg capsule aripiprazole [Abilify] 5 mg tablet 5 mg PO DAILY albuterol sulfate 2.5 mg /3 mL (0.083 %) solution for nebulization albuterol sulfate 90 mcg/actuation HFA aerosol inhaler INHALATION Follow-up/Referrals: Jordan,Doris Dahl MD [Primary Care Provider] - Time of Disposition: 10:46
--- OUTSIDE RECORDS SUMMARY | 2025-01-01 09:21 | XMS_ITS | Clinical Summary ---
Author Organization [facility] Sharonda Mehta Address [address] [place] [address] Care Team Providers Care Finish Patcher Name Role Phone João Zapata MD Primary Care Provider + [phone] Allergies No known active allergies Medications traZODone [...] Health Maintenance Due Date Last Done Comments HPV VACCINES (1 - 3-dose series) 09/23/1995 DTAP/TDAP/TD VACCINES (1 - Tdap) 09/23/1999 HEPATITIS B VACCINES (1 of 3 - 19+ 3-dose series) 09/12 HPV/Cotest (21-29) 2001 CERVICAL CANCER SCREENING 2010 HPV/Cotest (30-65) 2010 PAP SMEAR 2010 BREAST CANCER SCREENING 2020 INFLUENZA VACCINE (#1) 2025 Care Teams Finish Patcher Relationship Specialty Start Date End Date João Zapata MD [address] [place] [address] PCP - General Family Practice 10/12/19
--- OUTSIDE RECORDS SUMMARY | 2025-01-01 09:21 | XMS_ITS | Patient Health Record ---
Author Organization [facility] Address [address] [place] [address] Care Team Providers Care Broach Operator Name Role Phone Eduin Alena Unavailable [phone] Allergies Allergen (clinical drug ingredient) Drug/Non Drug [...] many cigarettes a day do you smoke? - Problems Problem Type SNOMED Code ICD Code Onset Dates Problem Status W/U Status Risk Notes Problem Depression (676964287) Depression (F32.9) Active confirmed Problem Anxiety (00788203) Anxiety (F41.9) Active confirmed Encounters Encounter Location Date Provider Diagnosis [address] [place] [address] 01/11/2024 Alena Denny Depression F32.9 and Anxiety F41.[address] [facility] [place] [address] 02/08/2024 Alena Eduin Depression F32.9 and Anxiety F41.[address] [place] [address] 02/22/2024 Alena Eduin Depression F32.9 and Anxiety F41.[address] [place] [address] 03/07/2024 Alena Eduin Depression F32.9 and Anxiety [...] look for a therapist. Pt denies SI/HI 01/11/2024 Anxiety (ICD-10 - F41.9) Pt reports [...] also contact the 24-hour crisis hotline ([facility]), refer to the closest emergency [...] aware that this provider will be leaving [facility] as of 03/08/2024 and she will be transitioned to a new provider for her next appointment. Plan Of Treatment No Information Insurance Providers Payer Name Payer Address Payer Phone Subscriber Number Group Number Insured Name Patient Relationship to Insured Coverage Start Date Coverage End Date [facility] [address] [place] [address] [id number] Cely Tatum Self - patient is the insured 4 Medical (General) History Medical History History ICD Code Asthma Surgical History Surgery Date(Month/Year) cervical fusion tubal ligation
--- OUTSIDE RECORDS SUMMARY | 2025-01-01 09:21 | XMS_ITS | Clinical Summary ---
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
--- OUTSIDE RECORDS SUMMARY | 2025-01-01 09:21 | XMS_ITS | Clinical Summary ---
Author Organization [facility] [employer] Address [address] [place] [address] Care Team Providers Care Farm Hand Name Role Phone João Zapata MD Primary Care Provider [phone] Kimberly Sabillon INDUSTRIAL INSULATOR Unavailable [phone] Source Comments [facility] [employer],non-owned Affiliates and Associated Physician Practices is amultiple site organization consisting of ambulatory clinics and hospital sitesin [place], [place], [place] and [place]. This disclosure is being madepursuant to the Care Everywhere program and may not contain all information available regarding this patient. Last updated 18.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 Gender Identity Not on file Sexual Orientation [...] VACCINE (1 of 2 - PCV) 09/23/1999 HPV VACCINE (1 - 3-dose SCDM series) 09/23/2007 LIPID TESTING 04/28/2021 04/28/2016 COVID-19 VACCINE (1 - 2023-2 5 season) 2024 DEPRESSION SCREENING 06/14/2024 INFLUENZA VACCINE (#1) 2025 ZOSTER VACCINE (1 of 2) 2030 [...] Comments LIPID PROFILE Routine 04/28/2016 9:01 AM LOWER SCHOOL MUSIC TEACHER Encounter to establish care with new doctor from Last 3 Months or Most Recently Relevant to Health Maintenance Results * (ABNORMAL) LIPID PROFILE (04/28/2016 9:01 AM LOWER SCHOOL MUSIC TEACHER) Cholesterol 111 <200 mg/dL 04/28/2016 10:33 AM LOWER SCHOOL MUSIC TEACHER [facility] Triglycerides 94 <150 mg/dL 04/28/2016 10:33 AM LOWER SCHOOL MUSIC TEACHER [facility] HDL Cholesterol 29(L) >40 mg/dL 6 10:33 AM LOWER SCHOOL MUSIC TEACHER [facility] Chol HDL Ratio 3.8 1.0 - 6.0 04/28/2016 10:33 AM LOWER SCHOOL MUSIC TEACHER [facility] LDL Calculated 63(L) 65 - 130 mg/dL 04/28/2016 10:33 AM LOWER SCHOOL MUSIC TEACHER [facility] VLDL Calculated 19 10 - 40 mg/dL 04/28/2016 10:33 AM [facility] Blood BLOOD SPECIMEN / Unknown 04/28/2016 9:01 AM LOWER SCHOOL MUSIC TEACHER 04/28/2016 9:49 AM [facility] Narrative [facility] - 04/28/2016 10:33 AM [facility] Lipid Profile Comment: CHOLESTEROL LEVEL..................CLINICAL INTERPRETATION LESS [...] 2X AVERAGE.................. 9.5 ...................... 7.0 3X AVERAGE...................>23........................>11 us Kimberly Sabillon NP LAB - CHEMISTRY ORD ERABLES Final Result [facility] [address] [place] [address], [facility] from Last 3 Months or Most Recently Relevant to Health Maintenance Additional Health Concerns Infection Onset Date Last Indicated MRSA Comment:+ cx abscess 12/01/16 12/01/2016 12/01/2016 [place] [address] [place] [facility] [employer] [place] Care Teams Farm Hand Relationship Specialty Start Date End Date João Zapata MD [address] [place] [address] PCP - General 04/12/19 Kimberly Sabillon NP [address] [place] [address] Nurse Practitioner 04/12/19
--- OUTSIDE RECORDS SUMMARY | 2025-01-01 09:21 | XMS_ITS | Referral Summary ---
Author Organization [facility] [address] Address [address] [place] [address] Care Team Providers Care Lap Maker Name Role Phone Nia Jacob MD Primary [...] on file Legal Sex Female 10:40 AM MEDICAL CONCIERGE Gender Identity Not on file Sexual Orientation [...] Plan of Treatment Not on file Insurance [facility] Care Teams Lap Maker Relationship Specialty Start Date End Date Nia Jacob MD PCP - General Family Practice 12/31/22
[2025-01-01] MEDS: ORPHENADRINE CITRATE 30 MG/ML 2 ML VIAL 60 MG IM (09:25)
[2025-01-01] MEDS: KETOROLAC (*BKC) 60 MG/2 ML VIAL IM (09:25)
--- OUTSIDE RECORDS SUMMARY | 2025-01-01 09:47 | XMS_ITS | Clinical Summary ---
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
--- OUTSIDE RECORDS SUMMARY | 2025-01-01 09:47 | XMS_ITS | Referral Summary ---
Author Organization [facility] [address] Address [address] [place] [address] Care Team Providers Care Head Of Academic Technology Name Role Phone Nia Jacob MD Primary [...] on file Legal Sex Female 10:40 AM CLINICAL REGISTERED NURSE Gender Identity Not on file Sexual Orientation [...] Plan of Treatment Not on file Insurance [facility] Care Teams Head Of Academic Technology Relationship Specialty Start Date End Date Nia Jacob MD PCP - General Family Practice 12/31/22
--- OUTSIDE RECORDS SUMMARY | 2025-01-01 09:47 | XMS_ITS | Clinical Summary ---
Author Organization [facility] Sharonda Mehta Address [address] [place] [address] Care Team Providers Care Rivet Heater Name Role Phone João Zapata MD Primary Care Provider + [phone] Allergies No known active allergies Medications traZODone [...] 2020 INFLUENZA VACCINE (#1) 2025 Care Teams Rivet Heater Relationship Specialty Start Date End Date João Zapata MD [address] [place] [address] PCP - General Family Practice 10/12/19
--- OUTSIDE RECORDS SUMMARY | 2025-01-01 09:47 | XMS_ITS | Clinical Summary ---
Author Organization [facility] [employer] Address [address] [place] [address] Care Team Providers Care Photographic Artist Name Role Phone João Zapata MD Primary Care Provider [phone] Kimberly Sabillon MUSIC THERAPY SPECIALIST Unavailable [phone] Source Comments [facility] [employer],non-owned Affiliates and Associated Physician Practices is amultiple site organization consisting of ambulatory clinics and hospital sitesin [place], [place], [place]. This disclosure is being madepursuant to the Care Everywhere program and may not contain all information available regarding this patient. Last updated 18.[facility] [employer] Allergies No known active allergies Medications * [...] on file Legal Sex Female 8:48 AM ECOMMERCE ANALYST Gender Identity Not on file Sexual Orientation [...] Comments LIPID PROFILE Routine 04/28/2016 9:01 AM ECOMMERCE ANALYST Encounter to establish care with new doctor from Last 3 Months or Most Recently Relevant to Health Maintenance Results * (ABNORMAL) LIPID PROFILE (04/28/2016 9:01 AM ECOMMERCE ANALYST) Cholesterol 111 <200 mg/dL 04/28/2016 10:33 AM ECOMMERCE ANALYST [facility] Triglycerides 94 <150 mg/dL 04/28/2016 10:33 AM ECOMMERCE ANALYST [facility] HDL Cholesterol 29(L) >40 mg/dL 6 10:33 AM ECOMMERCE ANALYST [facility] Chol HDL Ratio 3.8 1.0 - 6.0 04/28/2016 10:33 AM ECOMMERCE ANALYST [facility] LDL Calculated 63(L) 65 - 130 mg/dL 04/28/2016 10:33 AM ECOMMERCE ANALYST [facility] VLDL Calculated 19 10 - 40 mg/dL 04/28/2016 10:33 AM [facility] Blood BLOOD SPECIMEN / Unknown 04/28/2016 9:01 AM ECOMMERCE ANALYST 04/28/2016 9:49 AM [facility] Narrative [facility] - 04/28/2016 10:33 AM [facility] Lipid Profile Comment: CHOLESTEROL LEVEL..................CLINICAL INTERPRETATION [...] LAB - CHEMISTRY ORD ERABLES Final Result [facility] [address] [place] [address], [facility] from Last 3 Months or Most Recently Relevant to Health Maintenance Additional Health Concerns Infection Onset Date Last Indicated MRSA Comment:+ cx abscess 12/01/16 12/01/2016 12/01/2016 Insurance [employer] [place] [facility] [employer] [place] Care Teams Photographic Artist Relationship Specialty Start Date End Date João Zapata MD [address] [place] [address] PCP - General 04/12/19 Kimberly Sabillon NP [address] [place] [address] Nurse Practitioner 04/12/19
[2025-01-01 10:50] VITALS: BP 130/82; PULSE 60; RESP 16; O2SAT 100
== END 2025-01-01 10:56 | disposition home or self-care (01) ==
PROVIDERS: Emergency Provider Emergency Medicine; PCP Family Medicine
DX: M54.50 Low back pain, unspecified (principal); F17.200 Nicotine dependence, unspecified, uncomplicated
CPT/HCPCS: 72100; 96372; 99284; J1885; J2360

== ENCOUNTER 2025-04-16 12:59 | Outpatient (CLI) | payer OTHER, SELFPAY ==
--- OUTSIDE RECORDS SUMMARY | 2024-01-06 06:40 | XMS_ITS ---
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 3 Week F/U. * Medical History: Objective: * Vitals: Assessment: Plan: * Treatment: * * Electronic signature of Molly Denny on 04/16/2025 at 02:11 PM LATEX DIPPER Sign off status: Pending * Provider: HONEY PINZON, FIRE PATROLLER-C, PMHNP-BC Date: 0 01/06/2024 Generated for Baljeet ng/Famekhig/eTransmitting on: 1 06/16/2024 02:11 PM LATEX DIPPER
--- NOTE | ~2025-04-16 | XR_ITS ---
EXAMINATION: XR chest 2V, 04/16/2025 13:30 ALLIED HEALTH TEACHER HISTORY: PRE OP TESTING / PA AND LATERAL VIEWS COMPARISON: No comparisons available. Technique: 2 views obtained. Findings: The lungs are clear, no effusion. No pneumothorax. Heart is normal size. Mediastinal and hilar contours are within normal limits. Bony thorax no acute abnormality. Impression: No acute cardiopulmonary abnormality. Reviewed, dictated and finalized at location P. ED HEALTH TEACHER Impression: No acute cardiopulmonary abnormality.
[2025-04-16 13:14] LABS: Add Urine Microscopic? YES; Appearance Urine Clear (Clear); Glucose Urine UA Negative (Negative); Hematocrit 39.2 % (35.0-49.0); Hemoglobin 13.1 g/dL (12.0-15.0); Leukocyte Esterase Ur Negative (Negative); Mean Corpuscular HGB Conc 33.4 g/dL (32-36); Mean Corpuscular Hemoglobin 32.1 pg (27.0-31.0); Mean Corpuscular Volume 96.1 fL (78.0-102.0); Nitrate Urine Negative (Negative); Platelet Count Result 305 K/mm3 (150-420); Red Blood Count 4.08 M/mm3 (4.20-5.40); Specific Grav Ur 1.025 (1.010-1.020); White Blood Count 13.3 K/mm3 (4.8-10.8)
--- NOTE | 2025-04-16 13:15 | ECG_ITS ---
Test Date: 2025-04-16 13:21:52 Measurements Intervals [place] Rate: 74 P: 78 WA: 143 QRS: 82 QRSD: 91 T: 75 QT: 370 QTc: 412 Interpretive Statements SINUS RHYTHM MODERATE ST DEPRESSION [0.05+ mV ST DEPRESSION] Compared to ECG 12/22/2024 12:54:24 Sinus bradycardia no longer present ST (T wave) deviation still present Electronically Signed On 04-16-2025 18:48:02 AWARD MACHINE OPERATOR by Bhumi Decker M.D.
[2025-04-16 13:29] LABS: Alanine Aminotransferase 18 U/L (6-35); Albumin Level 4.8 g/dL (3.5-5.1); Alkaline Phosphatase 57 U/L (38-126); Anion Gap 10 mmol/L (4-12); Aspartate Amino Transferase 24 U/L (14-36); Bilirubin,Total 1.2 mg/dL (0.2-1.3); Blood Urea Nitrogen 14 mg/dL (7-17); Calcium 9.6 mg/dL (8.4-10.2); Carbon Dioxide 28 mmol/L (22-30); Chloride 105 mmol/L (98-107); Estimated Glomerular Filt Rate > 60; Glucose 88 mg/dL (65-110); Osmolality Calculated 295 mOsm/kg (285-295); Potassium 3.6 mmol/L (3.4-5.0); Sodium 143 mmol/L (137-145); Total Protein 7.3 g/dL (6.3-8.2)
--- OUTSIDE RECORDS SUMMARY | 2025-04-16 14:11 | XMS_ITS | Clinical Summary ---
Author Organization [facility] Sharonda Mehta Address [address] [place] [address] Care Team Providers Care Sales Representative Leather Goods Name Role Phone João Zapata MD Primary Care Provider + [phone] Allergies No known active allergies Medications traZODone [...] 19+ 3-dose series) 09/12 HPV/Cotest (21-29) 2001 HPV VACCINES (1 - 3-dose SCDM series) 09/23/2007 CERVICAL CANCER SCREENING 2010 HPV/Cotest (30-65) 2010 PAP SMEAR 2010 BREAST CANCER SCREENING 2020 INFLUENZA VACCINE (#1) 2025 Care Teams Sales Representative Leather Goods Relationship Specialty Start Date End Date João Zapata MD [address] [place] [address] PCP - General Family Practice 10/12/19
--- OUTSIDE RECORDS SUMMARY | 2025-04-16 14:11 | XMS_ITS | Clinical Summary ---
Author Organization [facility] [employer] Address [address] [place] [address] Care Team Providers Care Last Greaser Name Role Phone João Zapata MD Primary Care Provider [phone] Kimberly Sabillon CORN SHELLER Unavailable [phone] Source Comments [facility] [employer],non-owned Affiliates and Associated Physician Practices is amultiple site organization consisting of ambulatory clinics and hospital sitesin [place], [place], [place] and [place]. This disclosure is being madepursuant to the Care Everywhere program and may not contain all information available regarding this patient. Last updated 18.[facility] [employer] Allergies No known active allergies Medications * [...] on file Legal Sex Female 8:48 AM CAGE LOADER Gender Identity Not on file Sexual Orientation [...] SCDM series) 09/23/2007 LIPID TESTING 04/28/2021 04/28/2016 DEPRESSION SCREENING 06/14/2024 COVID-19 VACCINE (1 - 2023-2 5 season) 2025 INFLUENZA VACCINE (#1) 2025 ZOSTER VACCINE (1 [...] Comments LIPID PROFILE Routine 04/28/2016 9:01 AM CAGE LOADER Encounter to establish care with new doctor from Last 3 Months or Most Recently Relevant to Health Maintenance Results * (ABNORMAL) LIPID PROFILE (04/28/2016 9:01 AM CAGE LOADER) Cholesterol 111 <200 mg/dL 04/28/2016 10:33 AM CAGE LOADER [facility] Triglycerides 94 <150 mg/dL 04/28/2016 10:33 AM CAGE LOADER [facility] HDL Cholesterol 29(L) >40 mg/dL 6 10:33 AM CAGE LOADER [facility] Chol HDL Ratio 3.8 1.0 - 6.0 04/28/2016 10:33 AM CAGE LOADER [facility] LDL Calculated 63(L) 65 - 130 mg/dL 04/28/2016 10:33 AM CAGE LOADER [facility] VLDL Calculated 19 10 - 40 mg/dL 04/28/2016 10:33 AM [facility] Blood BLOOD SPECIMEN / Unknown 04/28/2016 9:01 AM CAGE LOADER 04/28/2016 9:49 AM [facility] Narrative [facility] - 04/28/2016 10:33 AM [facility] Lipid Profile Comment: CHOLESTEROL LEVEL..................CLINICAL INTERPRETATION [...] LAB - CHEMISTRY ORD ERABLES Final Result [facility] [address] [place] [address], [facility] from Last 3 Months or Most Recently Relevant to Health Maintenance Additional Health Concerns Infection Onset Date Last Indicated MRSA Comment:+ cx abscess 12/01/16 12/01/2016 12/01/2016 Insurance [employer] HEALTH [place]AN [place] [facility] [employer] HEALTH [place]AN [place] Care Teams Last Greaser Relationship Specialty Start Date End Date João Zapata MD [address] [place] [address] PCP - General 04/12/19 Kimberly Sabillon NP [address] [place] [address] Nurse Practitioner 04/12/19
--- OUTSIDE RECORDS SUMMARY | 2025-04-16 14:11 | XMS_ITS | Patient Health Record ---
Author Organization [facility] Address [address] [place] [address] Support Name Relationship Address Phone Rc Cely Guarantor Unknown [phone] Allergies Allergen (clinical drug ingredient) Drug/Non Drug [...] Status W/U Status Risk Notes Problem Depression (327540458) Depression (F32.9) Active confirmed Problem Anxiety (61815919) Anxiety (F41.9) Active confirmed Plan Of Treatment No Information Insurance Providers Payer Name Payer Address Payer Phone Subscriber Number Group Number Insured Name Patient Relationship to Insured Coverage Start Date Coverage End Date [facility] [address] [place] [address] [id number] Cely Tatum Self - patient is the insured 4 Medical (General) History Medical History History ICD Code Asthma Surgical History Surgery Date(Month/Year) cervical fusion tubal ligation
--- OUTSIDE RECORDS SUMMARY | 2025-04-16 14:11 | XMS_ITS | Clinical Summary ---
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 Care Teams Dry Color Tester Relationship Specialty Start Date End Date Nia Jacob MD PCP - General Family Practice 12/31/22
[2025-04-16 14:28] LABS: MRSA (PCR) NOT DETECTED (NOT DETECTE)
== END 2025-04-16 13:00 | disposition home or self-care (01) ==
LOC: CHSLAB 13:00
PROVIDERS: PCP Family Medicine; Visit Provider Family Medicine
DX: Z01.818 Encounter for other preprocedural examination (principal)
CPT/HCPCS: 36415; 71046; 80053; 81001; 85027; 87641; 93005